=== PATIENT | male | born 1930 | race Caucasian/White ===

== ENCOUNTER 2016-09-02 12:20 | Inpatient (IN) | payer MEDICARE ==
[2016-09-02] MEDS: Furosemide 40 MG TAB PO SCH (14:49)
[2016-09-02 15:17] LABS: Anion Gap 14 mmol/L (10-20); BUN (Urea Nitrogen) 21 mg/dL (8.4-25.7); Calc. Creatinine Clearance 46 mL/min (70-130); Calcium 8.7 mg/dL (7.8-10.44); Carbon Dioxide 22 mmol/L (23-31); Chloride 105 mmol/L (98-107); Estimated GFR-MDRD 48; Glucose 127 mg/dL (83-110); Potassium 4.4 mmol/L (3.5-5.1); Sodium 137 mmol/L (136-145)
[2016-09-02 15:27] LABS: #Basophils 0.1 thou/uL (0.0-0.2); #Eosinphils 0.2 thou/uL (0.0-0.7); #Lymphocytes 2.3 thou/uL (1.20-3.40); #Monocytes 1.5 thou/uL (0.11-0.59); #Neutrophils 14.5 thou/uL (1.40-6.50); %Basophils 0.5 % (0.0-1.0); %Lymphocytes 12.3 % (21.0-51.0); %Monocytes 7.9 % (0.0-10.0); %Neutrophils 78.3 % (42.0-75.0); Hemoglobin 10.3 g/dL (14.0-18.0); Mean Corpuscular HGB CONC 31.5 g/dL (32.0-36.0); Mean Platelet Volume 8.6 fL (7.4-10.4); Platelet Count 532 thou/uL (130-400); RBC Distribution Width 13.4 % (11.5-14.5); Red Blood Cell (RBC) Count 3.23 mill/uL (4.70-6.10); White Blood Cell (WBC) Count 18.5 thou/uL (4.8-10.8)
[2016-09-02] MEDS: Warfarin Sodium 2 MG TAB PO SCH (17:56)
[2016-09-02] MEDS: Carvedilol 25 MG TAB PO SCH (20:15)
[2016-09-02] MEDS: Potassium Chloride 20 MEQ TAB PO SCH (20:15)
[2016-09-02] MEDS: Magnesium Oxide 400 MG TAB PO SCH (20:15)
[2016-09-02] MEDS: Terazosin HCl 1 MG CAP PO SCH (20:15)
[2016-09-02] MEDS: Atorvastatin Calcium 10 MG TAB PO SCH (20:15)
[2016-09-02] MEDS: Famotidine 20 MG TAB PO SCH (20:15)
[2016-09-02] MEDS: Timolol 0.5% Ophth Soln 5 ml Bottle EA EYE SCH (20:16)
[2016-09-02] MEDS: Latanoprost 0.005% Ophth Soln 2.5 ml Bottle EA EYE SCH (20:17)
[2016-09-02] MEDS: Levemir Flexpen 100 UNITS/ML PEN SC SCH (20:18)
[2016-09-02] MEDS: Brimonidine Tartrate 0.2% Ophth Soln 5 ml Bottle EA EYE SCH (20:18)
[2016-09-03] MEDS: Glimepiride 2 MG TAB PO SCH (08:50)
[2016-09-03] MEDS: Carvedilol 25 MG TAB PO SCH ×2 (08:56→20:33)
[2016-09-03] MEDS: Potassium Chloride 20 MEQ TAB PO SCH ×2 (08:56→20:33)
[2016-09-03] MEDS: Famotidine 20 MG TAB PO SCH ×2 (08:56→20:33)
[2016-09-03] MEDS: Aspirin 81 mg Enteric Coated Tablet PO SCH (08:56)
[2016-09-03] MEDS: Magnesium Oxide 400 MG TAB PO SCH ×2 (08:56→20:33)
[2016-09-03] MEDS: Furosemide 40 MG TAB PO SCH ×2 (08:57→14:49)
[2016-09-03] MEDS: Pantoprazole 40 MG GRANULES PACKET PO SCH (08:57)
[2016-09-03] MEDS: Timolol 0.5% Ophth Soln 5 ml Bottle EA EYE SCH ×2 (08:58→20:36)
[2016-09-03] MEDS: Saccharomyces boulardii 250 MG CAP PO SCH (08:58)
[2016-09-03] MEDS: Brimonidine Tartrate 0.2% Ophth Soln 5 ml Bottle EA EYE SCH ×2 (08:58→20:37)
[2016-09-03] MEDS ORDERED: FLU VACC QS2016-17 36MOS UP/PF 0.5 ML SYRINGE IM ONE (09:00)
[2016-09-03] MEDS: AcetaZOLAMIDE 250 MG TAB PO SCH (09:09)
[2016-09-03] MEDS: HYDROcodone/Acetaminophen 5/325 mg Tablet PO PRN ×2 (10:00→20:33)
--- NOTE | 2016-09-03 12:22 | HP ---
DATE OF ADMISSION: 09/02/2016 DATE OF EXAMINATION: 09/03/2016 CHIEF COMPLAINT: Appendicitis, status post appendectomy, here for physical therapy. HISTORY OF PRESENT ILLNESS: This is a very pleasant 85-year-old male who I know very well and have been taking care of him for quite sometime, presented to the [facility] Emergency Room after having sudden episode of weakness and fatigue, and unable to get out of the c hair. Workup showed appendicitis and he underwent appendectomy. He also was on multiple antibiotic s for a while. He has improved sufficiently. Did not need any acute care, but he is significantly weak and his is pretty debilitated as well, and so has been sent here for therapy. Currently, he is sleeping soundly. Denies any complaints. His is in the room. No fever or chills. He i s tolerating his diet. He is on aspiration precautions. PAST MEDICAL HISTORY: 1. Diabetes mellitus type 2. 2. Paroxysmal atrial fibrillation. 3. Coronary artery disease. 4. Chronic kidney disease stage 3. 5. History of deep venous thrombosis, on warfarin. 6. Chronic anemia. PAST SURGICAL HISTORY: 1. Cholecystectomy. 2. EGD. 3. Colonoscopy. 4. Recent appendectomy. CURRENT MEDICATIONS: Reviewed and currently, he is on Levemir 20 units subcutaneous daily, potassiu m 40 mEq b.i.d., magnesium oxide 400 mg b.i.d., hydrocodone 1 tablet q.6 h. p.r.n., timolol 1 drop e ach eye b.i.d., Alphagan 0.2% 1 drop each eye b.i.d., acetazolamide 125 mg daily, Amaryl 1 mg daily, carvedilol 25 mg b.i.d., aspirin 81 mg daily, simvastatin 20 mg daily, Zantac 150 b.i.d., Lasix 40 mg b.i.d., warfarin 4 mg daily, and terazosin 1 mg daily. ALLERGIES: No known drug allergies. FAMILY HISTORY: Noncontributory to current admission. PSYCHOSOCIAL HISTORY: No history of tobacco, alcohol or IV drug abuse. He is legally blind. He li ves with his and his son. He is ambulatory with the help of a walker. REVIEW OF SYSTEMS: CARDIOVASCULAR: Denies any chest pain, shortness of breath, palpitations, paroxysmal nocturnal dysp yolande, orthopnea, or pedal edema. RESPIRATORY: Denies any chronic cough, expectoration, or pleuritic-type chest pain. GASTROINTESTINAL: Denies any nausea, vomiting, diarrhea, constipation, hematemesis, melena, hematoc hezia. GENITOURINARY: Denies any frequency, urgency, dysuria or hematuria. 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 His states that he has no recollection of him having surgery , but he responds to me appropriately to simple questions. PHYSICAL EXAMINATION: GENERAL: An 85-year-old male resting comfortably in no acute distress. VITAL SIGNS: He is afebrile. Heart rate is 80, blood pressure is 120/58, respiratory rate is 18, o xygen saturation is 95%. HEENT: Normocephalic, atraumatic. NECK: No JVD, thyromegaly, cervical adenopathy, or throat exudates. CARDIOVASCULAR: S1 and S2+. RESPIRATORY: Normal vesicular breath sounds. ABDOMEN: Soft, nontender. Bowel sounds heard in all quadrants. EXTREMITIES: Without cyanosis or clubbing. Trace edema. CENTRAL NERVOUS SYSTEM: Generalized weakness. LABORATORY VALUES: His white count is 18.5, H\T\H are 10.3 and 32.7, platelet count 532. Sodium 13 7, potassium 4.4, BUN and creatinine of 21 and 1.41. Blood sugars are 99, 102, 115, and 163. His P T/INR is pending. IMPRESSION: 1. Recent appendicitis, status post appendectomy. 2. Coronary artery disease. 3. Diabetes mellitus type 2. 4. Hypertension. 5. Dyslipidemia. 6. Paroxysmal atrial fibrillation. 7. History of deep venous thrombosis. 8. Chronic anemia. 9. Legal blindness. 10. Chronic kidney disease stage 2-3. PLAN: 1. Continue current medications. 2. Monitor white blood count. 3. Nutritional support. 4. DVT and stress ulcer prophylaxis. 5. Daily PT/INR. 6. Physical therapy and occupational therapy evaluation and treat. 7. Aspiration precautions and speech therapy evaluation. 8. Discussed with and patient in detail and all questions answered.
[2016-09-03] MEDS: Nystatin Cream 30 GM TUBE TOP SCH ×2 (15:14→20:35)
[2016-09-03] MEDS: Warfarin Sodium 2 MG TAB PO SCH (16:43)
[2016-09-03] MEDS: Levemir Flexpen 100 UNITS/ML PEN SC SCH (20:34)
[2016-09-03] MEDS: Terazosin HCl 1 MG CAP PO SCH (20:34)
[2016-09-03] MEDS: Atorvastatin Calcium 10 MG TAB PO SCH (20:34)
[2016-09-03] MEDS: Latanoprost 0.005% Ophth Soln 2.5 ml Bottle EA EYE SCH (20:38)
[2016-09-04 05:47] LABS: #Eosinphils 0.2 thou/uL (0.0-0.7); #Lymphocytes 1.3 thou/uL (1.20-3.40); #Monocytes 0.9 thou/uL (0.11-0.59); #Neutrophils 10.4 thou/uL (1.40-6.50); %Basophils 0.3 % (0.0-1.0); %Eosinophils 1.3 % (0.0-10.0); %Monocytes 6.9 % (0.0-10.0); %Neutrophils 81.5 % (42.0-75.0); Hemoglobin 9.2 g/dL (14.0-18.0); Mean Corpuscular HGB CONC 31.2 g/dL (32.0-36.0); Mean Corpuscular Hemoglobin 31.9 pg (27.0-31.0); Mean Platelet Volume 7.8 fL (7.4-10.4); Platelet Count 488 thou/uL (130-400); RBC Distribution Width 13.5 % (11.5-14.5); Red Blood Cell (RBC) Count 2.89 mill/uL (4.70-6.10); White Blood Cell (WBC) Count 12.8 thou/uL (4.8-10.8)
[2016-09-04 05:54] LABS: INR-International Normal Ratio 1.7; Prothrombin Time 20.1 SEC (12.0-14.7)
[2016-09-04 05:56] LABS: Anion Gap 13 mmol/L (10-20); BUN (Urea Nitrogen) 28 mg/dL (8.4-25.7); Calc. Creatinine Clearance 38 mL/min (70-130); Calcium 8.6 mg/dL (7.8-10.44); Carbon Dioxide 23 mmol/L (23-31); Chloride 110 mmol/L (98-107); Estimated GFR-MDRD 38; Glucose 157 mg/dL (83-110); Potassium 5.3 mmol/L (3.5-5.1); Sodium 141 mmol/L (136-145)
[2016-09-04] MEDS: Glimepiride 2 MG TAB PO SCH (08:39)
[2016-09-04] MEDS: Timolol 0.5% Ophth Soln 5 ml Bottle EA EYE SCH ×2 (08:41→20:45)
[2016-09-04] MEDS: Brimonidine Tartrate 0.2% Ophth Soln 5 ml Bottle EA EYE SCH ×2 (08:41→20:46)
[2016-09-04] MEDS: Carvedilol 25 MG TAB PO SCH ×2 (08:42→20:41)
[2016-09-04] MEDS: Potassium Chloride 20 MEQ TAB PO SCH (08:42)
[2016-09-04] MEDS: AcetaZOLAMIDE 250 MG TAB PO SCH (08:42)
[2016-09-04] MEDS: Aspirin 81 mg Enteric Coated Tablet PO SCH (08:42)
[2016-09-04] MEDS: Saccharomyces boulardii 250 MG CAP PO SCH (08:42)
[2016-09-04] MEDS: Furosemide 40 MG TAB PO SCH ×2 (08:42→14:14)
[2016-09-04] MEDS: Pantoprazole 40 MG GRANULES PACKET PO SCH (08:42)
[2016-09-04] MEDS: Famotidine 20 MG TAB PO SCH ×2 (08:42→20:41)
[2016-09-04] MEDS: Magnesium Oxide 400 MG TAB PO SCH ×2 (08:42→20:41)
[2016-09-04] MEDS: Nystatin Cream 30 GM TUBE TOP SCH (08:43)
--- NOTE | 2016-09-04 15:58 | PRG ---
DATE OF SERVICE: 09/04/2016 SUBJECTIVE: Mr. Harrington is resting comfortably. He is tolerating his diet. He did have one episo de of diarrhea, but C. diff was negative. His white count is down. He denies any fever or chills. He denies any pain. His is in the room. OBJECTIVE: VITAL SIGNS: He is afebrile, heart rate is 77, respirations are 20, oxygen saturation is 95%, blood pressure 139/66. CARDIOVASCULAR: S1, S2 plus. RESPIRATORY: Normal vesicular breath sounds. ABDOMEN: Soft, nontender, bowel sounds heard in all quadrants. EXTREMITIES: Without cyanosis or clubbing. He does have macular rash in the groin area consistent with tinea corporis. LABORATORY DATA: White count is down to 12.8, H\T\H is 9.2 and 29.6. Chemistry shows a sodium 141, potassium is elevated at 5.3, BUN and creatinine 28 and 1.7, blood sugars are 124 121, 156 and 183. IMPRESSION: 1. Status post appendectomy for appendicitis. 2. Improving deconditioning. 3. Diabetes mellitus type 2. 4. Atrial fibrillation. 5. History of DVT. 6. Dyslipidemia. 7. Hyperkalemia. 8. Worsening renal dysfunction. PLAN: 1. Decrease Lasix to 40 mg once a day. 2. Stop potassium. 3. Continue to monitor laboratory values. 4. Nutritional support. 5. DVT and stress ulcer prophylaxis. 6. Decubitus precautions. 7. Physical therapy.
[2016-09-04] MEDS: traMADol HCl 50 MG TAB PO PRN (17:41)
[2016-09-04] MEDS: Warfarin Sodium 2 MG TAB PO SCH (17:41)
[2016-09-04] MEDS: Terazosin HCl 1 MG CAP PO SCH (20:41)
[2016-09-04] MEDS: HYDROcodone/Acetaminophen 5/325 mg Tablet PO PRN (20:41)
[2016-09-04] MEDS: Atorvastatin Calcium 10 MG TAB PO SCH (20:41)
[2016-09-04] MEDS: Ketoconazole 2% Cream 15 gm Tube TOP SCH (20:42)
[2016-09-04] MEDS: Latanoprost 0.005% Ophth Soln 2.5 ml Bottle EA EYE SCH (20:45)
[2016-09-04] MEDS: Levemir Flexpen 100 UNITS/ML PEN SC SCH (20:47)
[2016-09-05 05:32] LABS: #Basophils 0.1 thou/uL (0.0-0.2); #Eosinphils 0.3 thou/uL (0.0-0.7); #Lymphocytes 1.9 thou/uL (1.20-3.40); #Monocytes 1.2 thou/uL (0.11-0.59); #Neutrophils 8.6 thou/uL (1.40-6.50); %Basophils 0.5 % (0.0-1.0); %Eosinophils 2.3 % (0.0-10.0); %Lymphocytes 15.8 % (21.0-51.0); %Monocytes 10.2 % (0.0-10.0); %Neutrophils 71.3 % (42.0-75.0); Hemoglobin 8.8 g/dL (14.0-18.0); Mean Corpuscular HGB CONC 32.3 g/dL (32.0-36.0); Mean Corpuscular Hemoglobin 32.8 pg (27.0-31.0); Mean Platelet Volume 8.1 fL (7.4-10.4); Platelet Count 493 thou/uL (130-400); RBC Distribution Width 13.2 % (11.5-14.5); Red Blood Cell (RBC) Count 2.68 mill/uL (4.70-6.10); White Blood Cell (WBC) Count 12.1 thou/uL (4.8-10.8)
[2016-09-05 05:41] LABS: Anion Gap 14 mmol/L (10-20); BUN (Urea Nitrogen) 26 mg/dL (8.4-25.7); Calc. Creatinine Clearance 43 mL/min (70-130); Calcium 8.4 mg/dL (7.8-10.44); Carbon Dioxide 22 mmol/L (23-31); Chloride 111 mmol/L (98-107); Estimated GFR-MDRD 44; Glucose 137 mg/dL (83-110); Potassium 4.7 mmol/L (3.5-5.1); Sodium 142 mmol/L (136-145)
[2016-09-05] MEDS: Glimepiride 2 MG TAB PO SCH (08:29)
[2016-09-05] MEDS: Furosemide 40 MG TAB PO SCH (08:29)
[2016-09-05] MEDS: Carvedilol 25 MG TAB PO SCH ×2 (08:30→21:34)
[2016-09-05] MEDS: Aspirin 81 mg Enteric Coated Tablet PO SCH (08:30)
[2016-09-05] MEDS: AcetaZOLAMIDE 250 MG TAB PO SCH (08:30)
[2016-09-05] MEDS: Famotidine 20 MG TAB PO SCH ×2 (08:30→21:34)
[2016-09-05] MEDS: Pantoprazole 40 MG GRANULES PACKET PO SCH (08:31)
[2016-09-05] MEDS: Ketoconazole 2% Cream 15 gm Tube TOP SCH ×2 (08:31→21:34)
[2016-09-05] MEDS: Magnesium Oxide 400 MG TAB PO SCH ×2 (08:31→21:34)
[2016-09-05] MEDS: Saccharomyces boulardii 250 MG CAP PO SCH (08:31)
[2016-09-05] MEDS: Timolol 0.5% Ophth Soln 5 ml Bottle EA EYE SCH ×2 (09:38→21:54)
[2016-09-05] MEDS: Brimonidine Tartrate 0.2% Ophth Soln 5 ml Bottle EA EYE SCH ×2 (09:38→21:33)
[2016-09-05 12:09] VITALS: BMI 27.3
--- NOTE | 2016-09-05 13:29 | PRG ---
DATE OF SERVICE: 09/05/2016 SUBJECTIVE: Mr. Harrington is doing well. He denies any complaints, resting comfortably, tolerating his therapy. He apparently walked close to 40 feet today. I spoke with speech therapy, they are up grading him to thin liquids. No other concerns or questions. OBJECTIVE: VITAL SIGNS: He is afebrile, heart rate is 76, respirations are 20, oxygen saturation 95%, blood pr essure 133/73. CARDIOVASCULAR: S1, S2 plus. RESPIRATORY: Normal vesicular breath sounds. ABDOMEN: Soft, nontender, bowel sounds heard in all quadrants. EXTREMITIES: Without cyanosis or clubbing. LABORATORY VALUES: White count is down to 12.1, H\T\H is 8.8 and 27.1, sodium 142, potassium 4.7, B UN and creatinine 26 and 1.5. Blood sugars are 112, 147, 120 and 155. His INR is pending. IMPRESSION: 1. Status post appendectomy. 2. Improving deconditioning. 3. Paroxysmal atrial fibrillation. 4. Chronic kidney disease. 5. Resolved hyperkalemia. 6. Diabetes mellitus type 2. 7. Hypertension. 8. Dyslipidemia. PLAN: 1. Continue current medications. 2. Aspiration precautions. 3. DVT and stress ulcer prophylaxis. 4. Decubitus precautions. 5. Recheck PT/INR. 6. Continue physical therapy. 7. Nutritional support. 8. I spoke with Speech Therapy and they recommend a modified barium swallow on an outpatient basis, but I feel that once patient gets stronger he should be pretty much back to his normal self and if he is still having issues swallowing, then we will order the modified barium swallow.
[2016-09-05] MEDS: Warfarin Sodium 2 MG TAB PO SCH (17:44)
[2016-09-05] MEDS: HYDROcodone/Acetaminophen 5/325 mg Tablet PO PRN (18:38)
[2016-09-05] MEDS: Terazosin HCl 1 MG CAP PO SCH (21:37)
[2016-09-05] MEDS: Levemir Flexpen 100 UNITS/ML PEN SC SCH (21:37)
[2016-09-05] MEDS: Latanoprost 0.005% Ophth Soln 2.5 ml Bottle EA EYE SCH (21:37)
[2016-09-05] MEDS: Atorvastatin Calcium 10 MG TAB PO SCH (21:40)
[2016-09-06 05:42] LABS: #Basophils 0.1 thou/uL (0.0-0.2); #Eosinphils 0.2 thou/uL (0.0-0.7); #Lymphocytes 2.3 thou/uL (1.20-3.40); #Monocytes 1.1 thou/uL (0.11-0.59); #Neutrophils 5.5 thou/uL (1.40-6.50); %Basophils 0.8 % (0.0-1.0); %Eosinophils 2.3 % (0.0-10.0); %Lymphocytes 25.1 % (21.0-51.0); %Monocytes 12.2 % (0.0-10.0); %Neutrophils 59.5 % (42.0-75.0); Hemoglobin 8.3 g/dL (14.0-18.0); Mean Corpuscular Hemoglobin 31.3 pg (27.0-31.0); Mean Platelet Volume 7.7 fL (7.4-10.4); Platelet Count 474 thou/uL (130-400); RBC Distribution Width 13.3 % (11.5-14.5); Red Blood Cell (RBC) Count 2.64 mill/uL (4.70-6.10); White Blood Cell (WBC) Count 9.3 thou/uL (4.8-10.8)
[2016-09-06 05:50] LABS: Anion Gap 13 mmol/L (10-20); BUN (Urea Nitrogen) 24 mg/dL (8.4-25.7); Calc. Creatinine Clearance 46 mL/min (70-130); Calcium 8.3 mg/dL (7.8-10.44); Carbon Dioxide 22 mmol/L (23-31); Chloride 109 mmol/L (98-107); Estimated GFR-MDRD 48; Glucose 76 mg/dL (83-110); Potassium 4.3 mmol/L (3.5-5.1); Sodium 140 mmol/L (136-145)
[2016-09-06 06:00] LABS: Prothrombin Time 22.3 SEC (12.0-14.7)
[2016-09-06] MEDS: Furosemide 40 MG TAB PO SCH (08:14)
[2016-09-06] MEDS: Glimepiride 2 MG TAB PO SCH (08:14)
[2016-09-06] MEDS: AcetaZOLAMIDE 250 MG TAB PO SCH (08:14)
[2016-09-06] MEDS: Carvedilol 25 MG TAB PO SCH ×2 (08:15→20:20)
[2016-09-06] MEDS: Aspirin 81 mg Enteric Coated Tablet PO SCH (08:15)
[2016-09-06] MEDS: Famotidine 20 MG TAB PO SCH ×2 (08:15→20:20)
[2016-09-06] MEDS: Brimonidine Tartrate 0.2% Ophth Soln 5 ml Bottle EA EYE SCH ×2 (08:15→20:18)
[2016-09-06] MEDS: Ketoconazole 2% Cream 15 gm Tube TOP SCH ×2 (08:16→20:19)
[2016-09-06] MEDS: Magnesium Oxide 400 MG TAB PO SCH ×2 (08:16→20:21)
[2016-09-06] MEDS: Pantoprazole 40 MG GRANULES PACKET PO SCH (08:16)
[2016-09-06] MEDS: Saccharomyces boulardii 250 MG CAP PO SCH (08:16)
[2016-09-06] MEDS: Timolol 0.5% Ophth Soln 5 ml Bottle EA EYE SCH ×2 (08:16→20:19)
[2016-09-06] MEDS: HYDROcodone/Acetaminophen 5/325 mg Tablet PO PRN (08:17)
[2016-09-06] MEDS: Warfarin Sodium 2 MG TAB PO SCH ×2 (17:44→19:00)
[2016-09-06] MEDS: Latanoprost 0.005% Ophth Soln 2.5 ml Bottle EA EYE SCH (20:17)
[2016-09-06] MEDS: Levemir Flexpen 100 UNITS/ML PEN SC SCH (20:21)
[2016-09-06] MEDS: Atorvastatin Calcium 10 MG TAB PO SCH (20:21)
[2016-09-06] MEDS: Terazosin HCl 1 MG CAP PO SCH (20:22)
[2016-09-07 05:46] LABS: #Basophils 0.1 thou/uL (0.0-0.2); #Eosinphils 0.2 thou/uL (0.0-0.7); #Lymphocytes 2.5 thou/uL (1.20-3.40); #Neutrophils 4.8 thou/uL (1.40-6.50); %Eosinophils 2.3 % (0.0-10.0); %Lymphocytes 28.8 % (21.0-51.0); %Neutrophils 55.9 % (42.0-75.0); Hemoglobin 8.7 g/dL (14.0-18.0); Mean Corpuscular HGB CONC 33.1 g/dL (32.0-36.0); Mean Corpuscular Hemoglobin 32.8 pg (27.0-31.0); Mean Corpuscular Volume 99.2 fl (80.0-94.0); Mean Platelet Volume 7.8 fL (7.4-10.4); Platelet Count 481 thou/uL (130-400); RBC Distribution Width 12.7 % (11.5-14.5); Red Blood Cell (RBC) Count 2.65 mill/uL (4.70-6.10); White Blood Cell (WBC) Count 8.5 thou/uL (4.8-10.8)
[2016-09-07 05:56] LABS: Anion Gap 12 mmol/L (10-20); BUN (Urea Nitrogen) 22 mg/dL (8.4-25.7); Calc. Creatinine Clearance 46 mL/min (70-130); Calcium 8.2 mg/dL (7.8-10.44); Carbon Dioxide 23 mmol/L (23-31); Chloride 105 mmol/L (98-107); Estimated GFR-MDRD 48; Glucose 93 mg/dL (83-110); INR-International Normal Ratio 2.2; Potassium 4.4 mmol/L (3.5-5.1); Prothrombin Time 24.2 SEC (12.0-14.7); Sodium 136 mmol/L (136-145)
[2016-09-07] MEDS: Glimepiride 2 MG TAB PO SCH (07:45)
[2016-09-07] MEDS: Furosemide 40 MG TAB PO SCH (07:45)
[2016-09-07] MEDS: Ketoconazole 2% Cream 15 gm Tube TOP SCH ×2 (09:46→21:12)
[2016-09-07] MEDS: Magnesium Oxide 400 MG TAB PO SCH ×2 (09:49→21:13)
[2016-09-07] MEDS: AcetaZOLAMIDE 250 MG TAB PO SCH (09:49)
[2016-09-07] MEDS: Saccharomyces boulardii 250 MG CAP PO SCH (09:50)
[2016-09-07] MEDS: Pantoprazole 40 MG GRANULES PACKET PO SCH (09:50)
[2016-09-07] MEDS: Aspirin 81 mg Enteric Coated Tablet PO SCH (09:50)
[2016-09-07] MEDS: Brimonidine Tartrate 0.2% Ophth Soln 5 ml Bottle EA EYE SCH ×2 (09:50→21:14)
[2016-09-07] MEDS: Carvedilol 25 MG TAB PO SCH ×2 (09:50→21:12)
[2016-09-07] MEDS: Timolol 0.5% Ophth Soln 5 ml Bottle EA EYE SCH ×2 (09:51→21:15)
[2016-09-07] MEDS: Famotidine 20 MG TAB PO SCH ×2 (09:58→21:12)
--- NOTE | 2016-09-07 12:49 | PRG ---
SUBJECTIVE: 09/07/2016 SUBJECTIVE: Mr. Harrington is doing well. Denies any complaints, resting comfortably and tolerating his medications. OBJECTIVE: VITAL SIGNS: He is afebrile. Heart rate is 66, respirations 18 and blood pressure is 121/73. CARDIOVASCULAR SYSTEM: S1 and S2 plus. RESPIRATORY SYSTEM: Normal vesicular breath sounds. ABDOMEN: Soft and nontender. Bowel sounds are heard in all quadrants. EXTREMITIES: Without cyanosis or clubbing. Peripheral pulses are palpable. CENTRAL NERVOUS SYSTEM: Grossly nonfocal. EXTREMITIES: Did show DJD in both his knees, worse on the left. LABORATORY VALUES: White count is 8.5, H\T\H is 8.7 and 26.3. Sodium 136, potassium 4.4, BUN and c reatinine 21 and 1.39. Blood sugars are 69, 89 and 95. IMPRESSION: 1. Status post appendectomy. 2. Resolved leukocytosis. 3. Coronary artery disease. 4. Paroxysmal atrial fibrillation. 5. Degenerative joint disease. 6. Improving deconditioning. PLAN: 1. Tylenol 650 mg q.6 hour p.r.n. for his knee pain. 2. Continue physical therapy. 3. Nutritional support. 4. Aspiration precautions. 5. Deep venous thrombosis and stress ulcer prophylaxis. 6. Monitor INR, it is up to 2.2 and stable.
[2016-09-07] MEDS: traMADol HCl 50 MG TAB PO PRN (13:00)
[2016-09-07] MEDS: Warfarin Sodium 1 MG TAB PO SCH (17:25)
[2016-09-07] MEDS: Atorvastatin Calcium 10 MG TAB PO SCH (21:11)
[2016-09-07] MEDS: Levemir Flexpen 100 UNITS/ML PEN SC SCH (21:12)
[2016-09-07] MEDS: HYDROcodone/Acetaminophen 5/325 mg Tablet PO PRN (21:13)
[2016-09-07] MEDS: Terazosin HCl 1 MG CAP PO SCH (21:13)
[2016-09-07] MEDS: Latanoprost 0.005% Ophth Soln 2.5 ml Bottle EA EYE SCH (21:14)
[2016-09-08 06:09] LABS: INR-International Normal Ratio 2.1; Prothrombin Time 23.1 SEC (12.0-14.7)
[2016-09-08] MEDS: Furosemide 40 MG TAB PO SCH (08:00)
[2016-09-08] MEDS: Glimepiride 2 MG TAB PO SCH (08:00)
[2016-09-08] MEDS: Saccharomyces boulardii 250 MG CAP PO SCH (09:04)
[2016-09-08] MEDS: Famotidine 20 MG TAB PO SCH ×2 (09:04→21:09)
[2016-09-08] MEDS: Pantoprazole 40 MG GRANULES PACKET PO SCH (09:04)
[2016-09-08] MEDS: AcetaZOLAMIDE 250 MG TAB PO SCH (09:04)
[2016-09-08] MEDS: Carvedilol 25 MG TAB PO SCH ×2 (09:05→21:09)
[2016-09-08] MEDS: Magnesium Oxide 400 MG TAB PO SCH ×2 (09:05→21:11)
[2016-09-08] MEDS: Aspirin 81 mg Enteric Coated Tablet PO SCH (09:05)
[2016-09-08] MEDS: traMADol HCl 50 MG TAB PO PRN (09:05)
[2016-09-08] MEDS: Ketoconazole 2% Cream 15 gm Tube TOP SCH ×2 (09:06→21:09)
[2016-09-08] MEDS: Brimonidine Tartrate 0.2% Ophth Soln 5 ml Bottle EA EYE SCH ×2 (09:06→21:09)
[2016-09-08] MEDS: Timolol 0.5% Ophth Soln 5 ml Bottle EA EYE SCH ×2 (09:07→21:12)
--- NOTE | 2016-09-08 14:09 | PRG ---
DATE OF SERVICE: 09/08/2016 SUBJECTIVE: Mr. Harrington is doing well. Denies any complaints. Resting comfortably. He is eating better, getting stronger, still having some issues with bowel and bladder incontinence according to his , he wants to be a full code. OBJECTIVE: VITAL SIGNS: He is afebrile, heart rate is 64, respirations 18, and blood pressure 116/63. CARDIOVASCULAR: S1, S2 plus. RESPIRATORY: Normal vesicular breath sounds. ABDOMEN: Soft, nontender, bowel sounds heard in all quadrants. EXTREMITIES: Without cyanosis or clubbing. LABORATORY VALUES: Blood sugars are 157, 102, 109, 93. IMPRESSION: 1. Status post appendectomy. 2. Improving deconditioning. 3. Paroxysmal atrial fibrillation. 4. Coronary artery disease. 5. Legal blindness. 6. Diabetes mellitus type 2. 7. Hypertension. 8. Dyslipidemia. 9. Deconditioning. PLAN: 1. Continue physical therapy. 2. Nutritional support. 3. A 1800 calorie heart healthy diet. 4. Accu-Cheks with sliding scale coverage. 5. Deep venous thrombosis and stress ulcer prophylaxis. 6. Decubitus precautions. 7. Routine laboratory values.
[2016-09-08] MEDS: Warfarin Sodium 1 MG TAB PO SCH (17:37)
[2016-09-08] MEDS: Atorvastatin Calcium 10 MG TAB PO SCH (21:08)
[2016-09-08] MEDS: Levemir Flexpen 100 UNITS/ML PEN SC SCH (21:10)
[2016-09-08] MEDS: Latanoprost 0.005% Ophth Soln 2.5 ml Bottle EA EYE SCH (21:10)
[2016-09-08] MEDS: Terazosin HCl 1 MG CAP PO SCH (21:11)
[2016-09-08] MEDS: HYDROcodone/Acetaminophen 5/325 mg Tablet PO PRN (21:11)
[2016-09-09 05:57] LABS: INR-International Normal Ratio 2.3; Prothrombin Time 24.9 SEC (12.0-14.7)
[2016-09-09] MEDS: Furosemide 40 MG TAB PO SCH (07:54)
[2016-09-09] MEDS: Glimepiride 2 MG TAB PO SCH (07:54)
[2016-09-09] MEDS: AcetaZOLAMIDE 250 MG TAB PO SCH (07:55)
[2016-09-09] MEDS: Brimonidine Tartrate 0.2% Ophth Soln 5 ml Bottle EA EYE SCH ×2 (07:55→20:47)
[2016-09-09] MEDS: Aspirin 81 mg Enteric Coated Tablet PO SCH (07:55)
[2016-09-09] MEDS: Saccharomyces boulardii 250 MG CAP PO SCH (07:56)
[2016-09-09] MEDS: Magnesium Oxide 400 MG TAB PO SCH ×2 (07:56→20:47)
[2016-09-09] MEDS: Carvedilol 25 MG TAB PO SCH ×2 (07:56→20:47)
[2016-09-09] MEDS: Famotidine 20 MG TAB PO SCH ×2 (07:56→20:47)
[2016-09-09] MEDS: Ketoconazole 2% Cream 15 gm Tube TOP SCH ×2 (07:56→20:48)
[2016-09-09] MEDS: Pantoprazole 40 MG GRANULES PACKET PO SCH (07:56)
[2016-09-09] MEDS: Timolol 0.5% Ophth Soln 5 ml Bottle EA EYE SCH ×2 (07:57→20:44)
[2016-09-09] MEDS: Warfarin Sodium 2 MG TAB PO SCH (17:18)
[2016-09-09] MEDS: Latanoprost 0.005% Ophth Soln 2.5 ml Bottle EA EYE SCH (20:44)
[2016-09-09] MEDS: Terazosin HCl 1 MG CAP PO SCH (20:47)
[2016-09-09] MEDS: Atorvastatin Calcium 10 MG TAB PO SCH (20:47)
[2016-09-09] MEDS: Levemir Flexpen 100 UNITS/ML PEN SC SCH (20:48)
[2016-09-09] MEDS: HYDROcodone/Acetaminophen 5/325 mg Tablet PO PRN (20:49)
[2016-09-10 05:40] LABS: INR-International Normal Ratio 2.2
[2016-09-10] MEDS: Furosemide 40 MG TAB PO SCH (08:38)
[2016-09-10] MEDS: AcetaZOLAMIDE 250 MG TAB PO SCH (08:39)
[2016-09-10] MEDS: Glimepiride 2 MG TAB PO SCH (08:39)
[2016-09-10] MEDS: Brimonidine Tartrate 0.2% Ophth Soln 5 ml Bottle EA EYE SCH ×2 (08:40→21:21)
[2016-09-10] MEDS: Aspirin 81 mg Enteric Coated Tablet PO SCH (08:40)
[2016-09-10] MEDS: Timolol 0.5% Ophth Soln 5 ml Bottle EA EYE SCH ×2 (08:41→21:16)
[2016-09-10] MEDS: Carvedilol 25 MG TAB PO SCH ×2 (08:41→21:21)
[2016-09-10] MEDS: Pantoprazole 40 MG GRANULES PACKET PO SCH (08:41)
[2016-09-10] MEDS: Saccharomyces boulardii 250 MG CAP PO SCH (08:41)
[2016-09-10] MEDS: Ketoconazole 2% Cream 15 gm Tube TOP SCH ×2 (08:41→21:21)
[2016-09-10] MEDS: Famotidine 20 MG TAB PO SCH ×2 (08:41→21:19)
[2016-09-10] MEDS: Magnesium Oxide 400 MG TAB PO SCH ×2 (08:41→21:20)
[2016-09-10] MEDS: HYDROcodone/Acetaminophen 5/325 mg Tablet PO PRN ×2 (08:42→21:22)
--- NOTE | 2016-09-10 15:01 | PRG ---
DATE OF SERVICE: 09/10/2016 SUBJECTIVE: Mr. Harrington is doing the same. Denies any complaints, tolerating his diet. He appare ntly walked twice. Therapy apparently stated that he should be ready to go home on Monday. She is going to get trained on his diaper change. He is still having some incontinence with his bowel a nd bladder. Dietitian apparently gave her a lot of instructions on cooking his food, and Speech The rapy also talked to her. She feels comfortable taking him home. She does have home health and I am going to see if they can do home PT as well as try to increase the home health 8-5 times a week. OBJECTIVE: VITAL SIGNS: He is afebrile, heart rate is 65, respirations are 18, oxygen saturation is 96%, blood pressure is 126/66. CARDIOVASCULAR: S1, S2 plus. RESPIRATORY: Normal vesicular breath sounds. ABDOMEN: Soft, nontender, bowel sounds heard in all quadrants. EXTREMITIES: Without cyanosis or clubbing. INR is 2.2. IMPRESSION: 1. Recent appendectomy. 2. Improving deconditioning. 3. Bowel and bladder incontinence secondary to weakness. 4. Paroxysmal atrial fibrillation. 5. Coronary artery disease. 6. Diabetes mellitus type 2. 7. Dyslipidemia. 8. Hypertension. 9. Chronic kidney disease. 10. Legal blindness. PLAN: 1. Continue physical therapy. 2. Nutritional support. 3. Aspiration precautions. 4. DVT and stress ulcer prophylaxis. 5. Decubitus precautions. 6. Routine laboratory values. 7. Discharge planning.
[2016-09-10] MEDS: Warfarin Sodium 2 MG TAB PO SCH (17:12)
[2016-09-10] MEDS: Latanoprost 0.005% Ophth Soln 2.5 ml Bottle EA EYE SCH (21:18)
[2016-09-10] MEDS: Atorvastatin Calcium 10 MG TAB PO SCH (21:19)
[2016-09-10] MEDS: Terazosin HCl 1 MG CAP PO SCH (21:19)
[2016-09-10] MEDS: Levemir Flexpen 100 UNITS/ML PEN SC SCH (21:20)
[2016-09-11 05:23] LABS: #Basophils 0.1 thou/uL (0.0-0.2); #Eosinphils 0.2 thou/uL (0.0-0.7); #Lymphocytes 2.7 thou/uL (1.20-3.40); #Monocytes 1.1 thou/uL (0.11-0.59); #Neutrophils 5.8 thou/uL (1.40-6.50); %Basophils 1.1 % (0.0-1.0); %Eosinophils 1.7 % (0.0-10.0); %Lymphocytes 27.5 % (21.0-51.0); %Monocytes 11.1 % (0.0-10.0); %Neutrophils 58.6 % (42.0-75.0); Hemoglobin 8.4 g/dL (14.0-18.0); Mean Corpuscular HGB CONC 31.6 g/dL (32.0-36.0); Mean Corpuscular Hemoglobin 31.3 pg (27.0-31.0); Mean Corpuscular Volume 99.1 fl (80.0-94.0); Mean Platelet Volume 7.6 fL (7.4-10.4); Platelet Count 404 thou/uL (130-400); RBC Distribution Width 12.9 % (11.5-14.5); Red Blood Cell (RBC) Count 2.67 mill/uL (4.70-6.10); White Blood Cell (WBC) Count 9.8 thou/uL (4.8-10.8)
[2016-09-11 05:41] LABS: Anion Gap 13 mmol/L (10-20); BUN (Urea Nitrogen) 30 mg/dL (8.4-25.7); Calc. Creatinine Clearance 35 mL/min (70-130); Calcium 8.2 mg/dL (7.8-10.44); Carbon Dioxide 22 mmol/L (23-31); Chloride 105 mmol/L (98-107); Estimated GFR-MDRD 35; Glucose 90 mg/dL (83-110); Potassium 4.4 mmol/L (3.5-5.1); Prothrombin Time 22.3 SEC (12.0-14.7); Sodium 136 mmol/L (136-145)
[2016-09-11] MEDS: Glimepiride 2 MG TAB PO SCH (08:26)
[2016-09-11] MEDS: Furosemide 40 MG TAB PO SCH (08:26)
[2016-09-11] MEDS: AcetaZOLAMIDE 250 MG TAB PO SCH (08:27)
[2016-09-11] MEDS: Aspirin 81 mg Enteric Coated Tablet PO SCH (08:28)
[2016-09-11] MEDS: Carvedilol 25 MG TAB PO SCH ×2 (08:28→21:22)
[2016-09-11] MEDS: Ketoconazole 2% Cream 15 gm Tube TOP SCH ×2 (08:28→21:22)
[2016-09-11] MEDS: Famotidine 20 MG TAB PO SCH ×2 (08:28→21:20)
[2016-09-11] MEDS: Brimonidine Tartrate 0.2% Ophth Soln 5 ml Bottle EA EYE SCH ×2 (08:28→21:18)
[2016-09-11] MEDS: Saccharomyces boulardii 250 MG CAP PO SCH (08:29)
[2016-09-11] MEDS: Pantoprazole 40 MG GRANULES PACKET PO SCH (08:29)
[2016-09-11] MEDS: HYDROcodone/Acetaminophen 5/325 mg Tablet PO PRN ×2 (08:29→21:20)
[2016-09-11] MEDS: Timolol 0.5% Ophth Soln 5 ml Bottle EA EYE SCH ×2 (08:29→21:23)
[2016-09-11] MEDS: Magnesium Oxide 400 MG TAB PO SCH ×2 (08:29→21:20)
[2016-09-11] MEDS: Warfarin Sodium 2 MG TAB PO SCH (17:11)
[2016-09-11] MEDS: Latanoprost 0.005% Ophth Soln 2.5 ml Bottle EA EYE SCH (21:19)
[2016-09-11] MEDS: Atorvastatin Calcium 10 MG TAB PO SCH (21:20)
[2016-09-11] MEDS: Levemir Flexpen 100 UNITS/ML PEN SC SCH (21:21)
[2016-09-11] MEDS: Terazosin HCl 1 MG CAP PO SCH (21:21)
--- NOTE | 2016-09-11 23:24 | PRG ---
DATE OF SERVICE: 09/11/2016 SUBJECTIVE: Mr. Harrington is doing the same, resting comfortably, eating better, still having some i ssues with bowel and bladder incontinence, is going to be trained tomorrow. She states that sh e is going to be able to take care of him. I am going to check with therapy as well. He has home h ealth. He really does not have any other family support other than his . There is a granddaugh hodan, who comes around pretty frequently, but she is the sole caregiver for her father. OBJECTIVE: VITAL SIGNS: He is afebrile, heart rate is 70, respiratory rate 18, oxygen saturation is 96%, and b lood pressure 107/58. CARDIOVASCULAR: S1, S2 plus. RESPIRATORY: Normal vesicular breath sounds. ABDOMEN: Soft and nontender. Bowel sounds heard in all quadrants. EXTREMITIES: Without cyanosis or clubbing. LABORATORY VALUES: White count is 9.8, hemoglobin and hematocrit is 8.4 and 26.5. Sodium 136, pota ssium 4.4, BUN and creatinine 30 and 1.84. Blood sugars are 75, 95 and 68. INR is 2.0. IMPRESSION: 1. Improving deconditioning, status post appendectomy. 2. Aspiration precautions for dysphagia. 3. Paroxysmal atrial fibrillation. 4. Coronary artery disease. 5. Hypertension. 6. Chronic kidney disease. 7. Legal blindness. 8. Bowel and bladder incontinence. PLAN: 1. Continue physical therapy. 2. Aspiration precautions. 3. Nutritional support. 4. Accu-Cheks with sliding scale coverage. 5. DVT and stress ulcer prophylaxis. 6. Decubitus precautions. 7. Routine laboratory values. 8. Discharge planning.
[2016-09-12 05:29] LABS: INR-International Normal Ratio 2.2; Prothrombin Time 24.2 SEC (12.0-14.7)
[2016-09-12] MEDS: Furosemide 40 MG TAB PO SCH (08:00)
[2016-09-12] MEDS: Glimepiride 2 MG TAB PO SCH (08:00)
[2016-09-12] MEDS: AcetaZOLAMIDE 250 MG TAB PO SCH (09:07)
[2016-09-12] MEDS: Aspirin 81 mg Enteric Coated Tablet PO SCH (09:07)
[2016-09-12] MEDS: Carvedilol 25 MG TAB PO SCH ×2 (09:08→21:00)
[2016-09-12] MEDS: Pantoprazole 40 MG GRANULES PACKET PO SCH (09:08)
[2016-09-12] MEDS: Ketoconazole 2% Cream 15 gm Tube TOP SCH ×2 (09:08→21:00)
[2016-09-12] MEDS: Magnesium Oxide 400 MG TAB PO SCH ×2 (09:08→21:01)
[2016-09-12] MEDS: Saccharomyces boulardii 250 MG CAP PO SCH (09:08)
[2016-09-12] MEDS: Brimonidine Tartrate 0.2% Ophth Soln 5 ml Bottle EA EYE SCH ×2 (09:09→20:59)
[2016-09-12] MEDS: Timolol 0.5% Ophth Soln 5 ml Bottle EA EYE SCH ×2 (09:11→21:03)
[2016-09-12] MEDS: Famotidine 20 MG TAB PO SCH ×2 (09:12→21:00)
[2016-09-12] MEDS: traMADol HCl 50 MG TAB PO PRN (09:15)
--- NOTE | 2016-09-12 14:39 | PRG ---
DATE OF SERVICE: 09/12/2016. SUBJECTIVE: Mr. Harrington is doing the same. He denies any complaints except he felt a little bit o f stiffness in his knee. I spoke with therapy and apparently he did not do as well today as he did last week. They are going to work with him and see if he is ready to go home Monday like they to ld the last week or whether he needs state couple more days. I spoke with Mrs. Harrington and sh e is agreeable if he needs to stay a few more days. OBJECTIVE: VITAL SIGNS: He is afebrile, heart rate is 72, respirations are 18, oxygen saturation is 96%, blood pressure is 110/60. CARDIOVASCULAR: S1, S2 plus. RESPIRATORY: Normal vesicular breath sounds. ABDOMEN: Soft, nontender, bowel sounds heard in all quadrants. EXTREMITIES: Without cyanosis or clubbing. IMPRESSION: 1. Slowly improving deconditioning, status post recent appendectomy. 2. Paroxysmal atrial fibrillation. 3. Coronary artery disease. 4. Chronic kidney disease. 5. Hypertension. 6. Dyslipidemia. 7. Diabetes mellitus type 2. PLAN: 1. Continue current medications. 2. Nutritional support. 3. Heart healthy ADA diet. 4. Accu-Cheks with sliding scale coverage. 5. Deep venous thrombosis and stress ulcer prophylaxes. 6. Decubitus precautions and physical therapy. He already has initial residential health. Blood sug ars are 79, 99, 92, 98 and 200.
[2016-09-12] MEDS: Warfarin Sodium 2 MG TAB PO SCH (17:55)
[2016-09-12] MEDS: Atorvastatin Calcium 10 MG TAB PO SCH (20:59)
[2016-09-12] MEDS: Latanoprost 0.005% Ophth Soln 2.5 ml Bottle EA EYE SCH (21:00)
[2016-09-12] MEDS: Terazosin HCl 1 MG CAP PO SCH (21:01)
[2016-09-12] MEDS: Levemir Flexpen 100 UNITS/ML PEN SC SCH (21:01)
[2016-09-12] MEDS: HYDROcodone/Acetaminophen 5/325 mg Tablet PO PRN (21:04)
[2016-09-13 05:31] LABS: INR-International Normal Ratio 2.7; Prothrombin Time 28.2 SEC (12.0-14.7)
[2016-09-13] MEDS: AcetaZOLAMIDE 250 MG TAB PO SCH (08:14)
[2016-09-13] MEDS: Aspirin 81 mg Enteric Coated Tablet PO SCH (08:14)
[2016-09-13] MEDS: Magnesium Oxide 400 MG TAB PO SCH ×2 (08:14→21:11)
[2016-09-13] MEDS: Carvedilol 25 MG TAB PO SCH ×2 (08:15→21:09)
[2016-09-13] MEDS: Pantoprazole 40 MG GRANULES PACKET PO SCH (08:15)
[2016-09-13] MEDS: Saccharomyces boulardii 250 MG CAP PO SCH (08:15)
[2016-09-13] MEDS: Famotidine 20 MG TAB PO SCH ×2 (08:15→21:09)
[2016-09-13] MEDS: Furosemide 40 MG TAB PO SCH (08:16)
[2016-09-13] MEDS: Glimepiride 2 MG TAB PO SCH (08:16)
[2016-09-13] MEDS: Timolol 0.5% Ophth Soln 5 ml Bottle EA EYE SCH ×2 (08:17→21:28)
[2016-09-13] MEDS: Brimonidine Tartrate 0.2% Ophth Soln 5 ml Bottle EA EYE SCH ×2 (08:19→21:09)
[2016-09-13] MEDS: Ketoconazole 2% Cream 15 gm Tube TOP SCH ×2 (08:19→21:10)
[2016-09-13] MEDS ORDERED: Bisacodyl 10 MG SUPP PR PRN (13:08)
--- NOTE | 2016-09-13 13:38 | PRG ---
DATE OF SERVICE: 09/13/2016 SUBJECTIVE: Mr. Harrington is doing the same. He denies any complaints. He apparently did not do as well with therapy secondary to back pain. I spoke with patient, and therapy. They still want to go home. Therapy feels that he is safe to go home as long as can assist him with his ADLs and they have home health and help if needed. Son and [id number] live right next door. He hitesh arently has not had a bowel movement and we are going to start him on some suppositories. OBJECTIVE: VITAL SIGNS: He is afebrile, heart rate is 66, respirations are 16, blood pressure is 115/56. CARDIOVASCULAR: S1, S2 plus. RESPIRATORY: Normal vesicular breath sounds. ABDOMEN: Soft, nontender, bowel sounds heard in all quadrants. EXTREMITIES: Without cyanosis or clubbing. IMPRESSION: 1. Status post appendectomy. 2. Paroxysmal atrial fibrillation. 3. Hypertension. 4. Dyslipidemia. 5. Chronic kidney disease. 6. Diabetes mellitus. 7. Constipation. 8. Bowel and bladder incontinence. PLAN: 1. Dulcolax suppository q.8 hours p.r.n., try to clean him before he goes home. 2. Physical therapy as tolerated. 3. educated and trained on doing his diaper change. 4. Case management consult on board to inform [facility] home health to see if they can send there and aid every day and then have a nurse checking at him closely for the first couple of weeks as wel l as home PT and OT. Monitor blood sugars. Poor long-term prognosis. I have discussed with his da [id number] and made them aware that if the is not able to handle it, then he may need to go to the halfway.
[2016-09-13] MEDS: traMADol HCl 50 MG TAB PO PRN (13:41)
[2016-09-13] MEDS: Warfarin Sodium 2 MG TAB PO SCH (17:31)
[2016-09-13] MEDS: Atorvastatin Calcium 10 MG TAB PO SCH (21:08)
[2016-09-13] MEDS: Latanoprost 0.005% Ophth Soln 2.5 ml Bottle EA EYE SCH (21:10)
[2016-09-13] MEDS: Levemir Flexpen 100 UNITS/ML PEN SC SCH (21:11)
[2016-09-13] MEDS: Terazosin HCl 1 MG CAP PO SCH (21:12)
[2016-09-14 00:40] LABS: #Basophils 0.1 thou/uL (0.0-0.2); #Eosinphils 0.1 thou/uL (0.0-0.7); #Lymphocytes 2.1 thou/uL (1.20-3.40); #Monocytes 1.2 thou/uL (0.11-0.59); #Neutrophils 8.6 thou/uL (1.40-6.50); %Basophils 0.6 % (0.0-1.0); %Eosinophils 0.7 % (0.0-10.0); %Lymphocytes 17.4 % (21.0-51.0); %Neutrophils 71.3 % (42.0-75.0); Hemoglobin 8.8 g/dL (14.0-18.0); Mean Corpuscular HGB CONC 33.1 g/dL (32.0-36.0); Mean Corpuscular Hemoglobin 32.5 pg (27.0-31.0); Mean Corpuscular Volume 98.2 fl (80.0-94.0); Mean Platelet Volume 8.2 fL (7.4-10.4); Platelet Count 349 thou/uL (130-400); RBC Distribution Width 12.9 % (11.5-14.5); Red Blood Cell (RBC) Count 2.69 mill/uL (4.70-6.10)
[2016-09-14 01:02] LABS: Bilirubin Negative (Negative); Blood, Urine Negative (Negative); Clarity Clear (Clear); Glucose, Urine (Dipstick) Negative (Negative); Leukocyte Negative (Negative); Nitrite Negative (Negative); Protein, Urine (Dipstick) Negative (Neg-Trace); Specific Gravity, Urine 1.015 (1.005-1.030); Urobilinogen 0.2 mg/dL (0.2-1.0)
[2016-09-14 01:02] LABS: Anion Gap 16 mmol/L (10-20); BUN (Urea Nitrogen) 34 mg/dL (8.4-25.7); Calc. Creatinine Clearance 32 mL/min (70-130); Calcium 8.5 mg/dL (7.8-10.44); Carbon Dioxide 23 mmol/L (23-31); Chloride 104 mmol/L (98-107); Estimated GFR-MDRD 32; Glucose 144 mg/dL (83-110); Potassium 4.6 mmol/L (3.5-5.1); Sodium 138 mmol/L (136-145)
[2016-09-14 05:21] LABS: INR-International Normal Ratio 2.7; Prothrombin Time 27.9 SEC (12.0-14.7)
[2016-09-14] MEDS: Glimepiride 2 MG TAB PO SCH (07:31)
[2016-09-14] MEDS: Furosemide 40 MG TAB PO SCH (07:32)
[2016-09-14] MEDS: Magnesium Oxide 400 MG TAB PO SCH ×2 (08:47→21:50)
[2016-09-14] MEDS: Carvedilol 25 MG TAB PO SCH ×2 (08:47→21:50)
[2016-09-14] MEDS: Pantoprazole 40 MG GRANULES PACKET PO SCH (08:47)
[2016-09-14] MEDS: Famotidine 20 MG TAB PO SCH ×2 (08:48→21:50)
[2016-09-14] MEDS: Saccharomyces boulardii 250 MG CAP PO SCH (08:48)
[2016-09-14] MEDS: Aspirin 81 mg Enteric Coated Tablet PO SCH (08:48)
[2016-09-14] MEDS: AcetaZOLAMIDE 250 MG TAB PO SCH (08:50)
[2016-09-14] MEDS: Brimonidine Tartrate 0.2% Ophth Soln 5 ml Bottle EA EYE SCH ×2 (08:51→21:50)
[2016-09-14] MEDS: Ketoconazole 2% Cream 15 gm Tube TOP SCH ×2 (08:52→21:50)
[2016-09-14] MEDS: Timolol 0.5% Ophth Soln 5 ml Bottle EA EYE SCH ×2 (08:53→21:50)
[2016-09-14] MEDS: Warfarin Sodium 2 MG TAB PO SCH (17:41)
--- NOTE | 2016-09-14 18:26 | PRG ---
DATE OF SERVICE: 09/14/2016 Mr. Harrington had an episode of confusion and agitation yesterday. I ordered some routine laboratory values on him and when they try to do urine culture, they notice that he had close to 900 mL of uri ne retained, after that he rested comfortably. This morning he is pretty much out of it. He has no t been participating as well with therapy. His has finally gone home to get some rest. His la boratory values from this morning are pretty much at his baseline. PHYSICAL EXAMINATION: VITAL SIGNS: He is afebrile, heart rate is 86, respirations are 20, blood pressure 127/71 and then it was as low as 75/46. CARDIOVASCULAR: S1, S2 plus. RESPIRATORY: Normal vesicular breath sounds. ABDOMEN: Soft, nontender, bowel sounds heard in all quadrants. EXTREMITIES: Without cyanosis or clubbing. IMPRESSION: 1. Urinary retention, acute. 2. Paroxysmal atrial fibrillation. 3. Recent appendectomy. 4. Deconditioning. 5. Diabetes mellitus type 2. 6. Hypertension. 7. Dyslipidemia. 8. Chronic kidney disease. 9. Dysphagia. PLAN: 1. Recheck blood pressure and if necessary we will start him on some IV fluids. 2. Hold discharge. 3. Await urine culture. 4. Bladder scan q.4h. and if his urine volume is more than 400 mL, I will have them place and leave the Casarez catheter in. 5. Recheck laboratories in the morning. 6. Left a message for his family, he may need to go to a correction. 7. Recheck routine laboratory values. 8. Accu-Cheks. 9. Aspiration precautions. Discussed with nursing.
[2016-09-14] MEDS: Finasteride 5 MG TAB PO SCH (21:50)
[2016-09-14] MEDS: Terazosin HCl 1 MG CAP PO SCH (21:50)
[2016-09-14] MEDS: Latanoprost 0.005% Ophth Soln 2.5 ml Bottle EA EYE SCH (21:50)
[2016-09-14] MEDS: Levemir Flexpen 100 UNITS/ML PEN SC SCH (21:50)
[2016-09-14] MEDS: Atorvastatin Calcium 10 MG TAB PO SCH (21:50)
[2016-09-15 06:47] LABS: #Basophils 0.1 thou/uL (0.0-0.2); #Eosinphils 0.1 thou/uL (0.0-0.7); #Lymphocytes 2.7 thou/uL (1.20-3.40); #Monocytes 1.1 thou/uL (0.11-0.59); #Neutrophils 5.8 thou/uL (1.40-6.50); %Basophils 0.8 % (0.0-1.0); %Monocytes 10.7 % (0.0-10.0); %Neutrophils 59.5 % (42.0-75.0); Hemoglobin 8.2 g/dL (14.0-18.0); Mean Corpuscular Hemoglobin 31.2 pg (27.0-31.0); Mean Corpuscular Volume 97.5 fl (80.0-94.0); Mean Platelet Volume 8.1 fL (7.4-10.4); Platelet Count 277 thou/uL (130-400); RBC Distribution Width 12.7 % (11.5-14.5); Red Blood Cell (RBC) Count 2.62 mill/uL (4.70-6.10); White Blood Cell (WBC) Count 9.8 thou/uL (4.8-10.8)
[2016-09-15 06:53] LABS: Calcium 7.8 mg/dL (7.8-10.44); Chloride 107 mmol/L (98-107); Sodium 140 mmol/L (136-145)
[2016-09-15 06:57] LABS: Prothrombin Time 30.3 SEC (12.0-14.7)
[2016-09-15 07:11] LABS: BUN (Urea Nitrogen) 26 mg/dL (8.4-25.7); Calc. Creatinine Clearance 39 mL/min (70-130); Carbon Dioxide 23 mmol/L (23-31); Estimated GFR-MDRD 40; Glucose 82 mg/dL (83-110)
[2016-09-15 07:29] LABS: Anion Gap 14 mmol/L (10-20)
[2016-09-15] MEDS: Furosemide 40 MG TAB PO SCH (07:30)
[2016-09-15] MEDS: Glimepiride 2 MG TAB PO SCH (08:01)
[2016-09-15] MEDS: Pantoprazole 40 MG GRANULES PACKET PO SCH (08:02)
[2016-09-15] MEDS: AcetaZOLAMIDE 250 MG TAB PO SCH (08:03)
[2016-09-15] MEDS: Aspirin 81 mg Enteric Coated Tablet PO SCH (08:03)
[2016-09-15] MEDS: Magnesium Oxide 400 MG TAB PO SCH ×2 (08:03→21:53)
[2016-09-15] MEDS: Carvedilol 25 MG TAB PO SCH ×2 (08:03→21:57)
[2016-09-15] MEDS: Brimonidine Tartrate 0.2% Ophth Soln 5 ml Bottle EA EYE SCH ×2 (08:05→21:53)
[2016-09-15] MEDS: Timolol 0.5% Ophth Soln 5 ml Bottle EA EYE SCH ×2 (08:05→21:54)
[2016-09-15] MEDS: Famotidine 20 MG TAB PO SCH ×2 (08:06→21:53)
[2016-09-15] MEDS: Ketoconazole 2% Cream 15 gm Tube TOP SCH ×2 (08:08→21:55)
--- NOTE | 2016-09-15 16:34 | PRG ---
DATE OF SERVICE: 09/15/2016 SUBJECTIVE: Mr. Harrington is a very pleasant 86-year-old white male, patient of Dr. Somers who unfort unately had an appendicitis and had to have an appendectomy. Postoperatively, he was significantly weak and was eventually transferred to [facility] for physical therapy and occupatio nal therapy. The patient has been followed by Dr. Somers since then. The patient has no complaints today, but he is a little bit confused and agitated yesterday. He had urinary retention and we are doing in and out caths on him and not been able to participate very we ll with therapy and hopefully that will get a little bit better today. VITAL SIGNS: Blood pressure 112/54, pulse 75-82, respirations 18-20, O2 saturation 95% to 97%, T-ma x is 97.4. LABORATORY Data: Laboratory values revealed a white count of 9800, which is better than yesterday's 12,000, his hemoglobin is 8.2, hematocrit 25.5, platelet count 277,000. His INR is 3.0, his sodium is 140, potassium 4.0, chloride 107, carbon dioxide 23 with a BUN of 26, creatinine 1.64 and that i s usually little bit better, his last creatinine on 09/11/2016 is 1.8. His sugars have been actuall y very well. PHYSICAL EXAMINATION: GENERAL: This is a well-developed elderly white male, in no apparent distress at this time. HEENT: Reveals normocephalic, nontraumatic cranium. Pupils are equally round and reactive. Nose a nd throat are slightly dry. NECK: Supple, without masses, nodes or bruits. CHEST: Clear to auscultation. No rales, rhonchi or wheezes are heard. HEART: Reveals a regular rate and rhythm without murmurs, gallops or rubs. ABDOMEN: Soft, nontender, without organomegaly, normal bowel sounds are noted. : Deferred. EXTREMITIES: Reveal no clubbing, cyanosis or edema. NEUROLOGIC: The patient is oriented to person, not place or time. IMPRESSION: 1. Confusion, most likely urinary retention, possible urinary tract infection. Labs are much impro minerva over the previous day. 2. Generalized weakness, slowly improving status post recent appendectomy. 3. Paroxysmal atrial fibrillation. 4. History of coronary artery disease. 5. Chronic kidney disease. 6. Hypertension. 7. Hyperlipidemia. 8. Diabetes type 2. PLAN: 1. Continue to follow his Accu-Cheks a.c. and at bedtime. 2. Continue to follow blood pressure closely. 3. Continue to follow the patient for urinary retention. 4. Continue nutritional support. 5. Continue DVT and stress ulcer prophylaxis. 6. Continue physical therapy and occupational therapy. 7. Continue decubitus precautions.
[2016-09-15] MEDS: Warfarin Sodium 2 MG TAB PO SCH (17:00)
[2016-09-15] MEDS: Finasteride 5 MG TAB PO SCH (21:53)
[2016-09-15] MEDS: Atorvastatin Calcium 10 MG TAB PO SCH (21:53)
[2016-09-15] MEDS: Terazosin HCl 1 MG CAP PO SCH (21:53)
[2016-09-15] MEDS: Latanoprost 0.005% Ophth Soln 2.5 ml Bottle EA EYE SCH (21:55)
[2016-09-15] MEDS: Levemir Flexpen 100 UNITS/ML PEN SC SCH (21:56)
--- NOTE | 2016-09-16 07:01 | PRG ---
DATE OF SERVICE: 09/16/2016 HISTORY OF PRESENT ILLNESS: Mr. Harrington is an 86-year-old white male, very pleasant that had some urinary retention and significant confusion. This morning, Mr. Harrington is back to his normal self. He is conversationalizing well. He is orien jesús to person, place and recognizes me from seeing him yesterday. He states he did feel better yest erday and ate better yesterday evening and did some with physical therapy yesterday. He has no comp laints today. VITAL SIGNS: Vital signs today reveal blood pressure 122/53, pulse last night was slow at 38-44. E KG was obtained, but it showed the rate back up to 88. The patient is on carvedilol, we cut his car vedilol from 25 mg b.i.d. to 12.5 mg b.i.d. He does have a history of atrial fibrillation, but he m ay be brought down too much with his beta haja. Soon thereafter after about 15 minutes, his hear t rate did picking supervisor to the 80s and this morning it is back to his normal at 82. PHYSICAL EXAMINATION: GENERAL: This is a well-developed, well-nourished, very pleasant white male in no apparent distress at this time. HEENT: Reveals normocephalic, nontraumatic cranium. Pupils are equally round and reactive. Nose a nd throat slightly dry. NECK: Supple, without mass, nodes or bruits. CHEST: Clear to auscultation. No rales, rhonchi or wheezes are heard. CARDIOVASCULAR: This morning reveals a regular rate and rhythm. No murmurs, gallops or rubs are no jesús. ABDOMEN: Soft, nontender, without organomegaly, normal bowel sounds are noted. No rebound or guard ing is noted. : Deferred. GENITOURINARY: Reveals Casarez catheter in place. His urine still looks somewhat cloudy this morning . EXTREMITIES: No clubbing, cyanosis or edema. NEUROLOGIC: The patient is oriented to person, place and time this morning. IMPRESSION: 1. Confusion, much improved. 2. Urine is cloudy this morning, we will get a UA. 3. The patient has already had a urine culture and sensitivity which is not growing anything. 4. Generalized weakness. 5. Status post recent appendectomy. 6. Paroxysmal atrial fibrillation. 7. History of coronary artery disease. 8. Chronic kidney disease. 9. Hypertension. 10. Hyperlipidemia. 11. Diabetes type 2. PLAN: 1. Continue to follow Accu-Cheks a.c. and at bedtime, which have remained good. 2. Continue to follow blood pressures. 3. Continue Casarez catheterization at this time. 4. Continue nutritional support and encouragement. 5. Continue DVT and stress ulcer prophylaxis. 6. Continue physical therapy and occupational therapy. 7. Continue decubitus precautions. 8. We will also repeat another urinalysis today.
[2016-09-16 07:05] LABS: Prothrombin Time 29.3 SEC (12.0-14.7)
[2016-09-16 07:06] LABS: INR-International Normal Ratio 2.8
[2016-09-16] MEDS: Furosemide 40 MG TAB PO SCH (07:53)
[2016-09-16] MEDS: Glimepiride 2 MG TAB PO SCH (07:53)
[2016-09-16] MEDS: Aspirin 81 mg Enteric Coated Tablet PO SCH (09:20)
[2016-09-16] MEDS: Carvedilol 25 MG TAB PO SCH ×2 (09:20→21:19)
[2016-09-16] MEDS: Saccharomyces boulardii 250 MG CAP PO SCH (09:20)
[2016-09-16] MEDS: Magnesium Oxide 400 MG TAB PO SCH ×2 (09:20→21:20)
[2016-09-16] MEDS: Famotidine 20 MG TAB PO SCH ×2 (09:20→21:20)
[2016-09-16] MEDS: Brimonidine Tartrate 0.2% Ophth Soln 5 ml Bottle EA EYE SCH ×2 (09:21→21:27)
[2016-09-16] MEDS: AcetaZOLAMIDE 250 MG TAB PO SCH (09:21)
[2016-09-16] MEDS: Timolol 0.5% Ophth Soln 5 ml Bottle EA EYE SCH ×2 (09:21→21:24)
[2016-09-16] MEDS: Ketoconazole 2% Cream 15 gm Tube TOP SCH ×2 (09:21→21:23)
[2016-09-16] MEDS: Pantoprazole 40 MG GRANULES PACKET PO SCH (09:21)
[2016-09-16] MEDS: Warfarin Sodium 2 MG TAB PO SCH (17:12)
[2016-09-16] MEDS: Atorvastatin Calcium 10 MG TAB PO SCH (21:20)
[2016-09-16] MEDS: Finasteride 5 MG TAB PO SCH (21:20)
[2016-09-16] MEDS: Terazosin HCl 1 MG CAP PO SCH (21:20)
[2016-09-16] MEDS: Levemir Flexpen 100 UNITS/ML PEN SC SCH (21:20)
[2016-09-16] MEDS: Latanoprost 0.005% Ophth Soln 2.5 ml Bottle EA EYE SCH (21:21)
[2016-09-16] MEDS: HYDROcodone/Acetaminophen 5/325 mg Tablet PO PRN (21:22)
[2016-09-17 06:12] LABS: INR-International Normal Ratio 3.1; Prothrombin Time 31.6 SEC (12.0-14.7)
[2016-09-17] MEDS: Saccharomyces boulardii 250 MG CAP PO SCH (08:36)
[2016-09-17] MEDS: Carvedilol 25 MG TAB PO SCH ×2 (08:36→21:43)
[2016-09-17] MEDS: Glimepiride 2 MG TAB PO SCH (08:37)
[2016-09-17] MEDS: Aspirin 81 mg Enteric Coated Tablet PO SCH (08:37)
[2016-09-17] MEDS: Magnesium Oxide 400 MG TAB PO SCH ×2 (08:37→21:43)
[2016-09-17] MEDS: Furosemide 40 MG TAB PO SCH (08:37)
[2016-09-17] MEDS: Famotidine 20 MG TAB PO SCH ×2 (08:37→21:42)
[2016-09-17] MEDS: AcetaZOLAMIDE 250 MG TAB PO SCH (08:37)
[2016-09-17] MEDS: Ketoconazole 2% Cream 15 gm Tube TOP SCH ×2 (08:38→21:44)
[2016-09-17] MEDS: Pantoprazole 40 MG GRANULES PACKET PO SCH (08:38)
[2016-09-17] MEDS: Timolol 0.5% Ophth Soln 5 ml Bottle EA EYE SCH ×2 (08:40→21:44)
[2016-09-17] MEDS: Brimonidine Tartrate 0.2% Ophth Soln 5 ml Bottle EA EYE SCH ×2 (08:41→21:44)
[2016-09-17] MEDS: Warfarin Sodium 2 MG TAB PO SCH (17:51)
--- NOTE | 2016-09-17 17:59 | PRG ---
DATE OF SERVICE: 09/17/2016 SUBJECTIVE: Mr. Harrington is an 86-year-old white male that was admitted to the hospital by Dr. Jovani martinez. He had significant urinary retention and confusion. He is admitted here also for physical thera py and occupational therapy. The patient's is in the room and said he is pretty much slept all day, but he seemed to really good day yesterday and just somewhat sleepy today. I did wake him up. He did recognize me. He did recognize his , who was not confused, states he just somewhat tired today, but he feels good. He says when it rains he feels tired has been raining today. He has no complaints. He has no pain today. LABORATORY DATA: Today reveals sugar was 70 this afternoon runs between 70-124. OBJECTIVE: VITAL SIGNS: Blood pressure 112/57, pulse 68-95, respirations 18-20, O2 sat 94-95%. T-max 99.8. GENERAL: This is a well-developed, well-nourished, white male in no apparent distress at this time. HEENT: Reveals normocephalic, nontraumatic cranium. Pupils are equally round and reactive. Extrao cular movements intact. Nose and throat slightly dry. NECK: Supple, without masses, nodes or bruits. CHEST: Clear to auscultation. No rales, rhonchi or wheezes are heard. CARDIOVASCULAR: Reveals a regular rate and rhythm without murmurs, gallops or rubs. ABDOMEN: Obese, soft, nontender, without organomegaly. Normal bowel sounds are noted. No rebound or guarding is noted. GI: Deferred. EXTREMITIES: Reveal no clubbing, cyanosis or edema. GENITOURINARY: Reveals Casarez catheter is in place. Urine looks clear today. NEUROLOGIC: The patient is oriented to person, place, and at this time. IMPRESSION: 1. Confusion still much improved. 2. Generalized weakness. 3. Status post recent appendectomy. 4. Paroxysmal atrial fibrillation. 5. History of coronary artery disease. 6. Chronic kidney disease. 7. Hypertension. 8. Hyperlipidemia. 9. Diabetes type 2. PLAN: 1. Continue Accu-Cheks before meals and at bedtime, which have been very good. 2. Continue to follow blood pressure. 3. Continue Casarez at this time. 4. Continue nutritional support. 5. Continue physical therapy and occupational therapy. 6. Continue DVT and stress ulcer prophylaxis. 7. Continued decubitus precautions. Urinalysis is unremarkable.
[2016-09-17] MEDS: Atorvastatin Calcium 10 MG TAB PO SCH (21:42)
[2016-09-17] MEDS: Finasteride 5 MG TAB PO SCH (21:43)
[2016-09-17] MEDS: Latanoprost 0.005% Ophth Soln 2.5 ml Bottle EA EYE SCH (21:43)
[2016-09-17] MEDS: Terazosin HCl 1 MG CAP PO SCH (21:43)
[2016-09-17] MEDS: Levemir Flexpen 100 UNITS/ML PEN SC SCH (21:45)
[2016-09-18 05:56] LABS: INR-International Normal Ratio 3.6; Prothrombin Time 34.9 SEC (12.0-14.7)
[2016-09-18] MEDS: Brimonidine Tartrate 0.2% Ophth Soln 5 ml Bottle EA EYE SCH ×2 (08:42→20:49)
[2016-09-18] MEDS: Ketoconazole 2% Cream 15 gm Tube TOP SCH ×2 (08:43→20:54)
[2016-09-18] MEDS: Furosemide 40 MG TAB PO SCH (08:44)
[2016-09-18] MEDS: Pantoprazole 40 MG GRANULES PACKET PO SCH (08:44)
[2016-09-18] MEDS: Saccharomyces boulardii 250 MG CAP PO SCH (08:44)
[2016-09-18] MEDS: Magnesium Oxide 400 MG TAB PO SCH ×2 (08:44→20:55)
[2016-09-18] MEDS: Carvedilol 25 MG TAB PO SCH ×2 (08:44→20:55)
[2016-09-18] MEDS: AcetaZOLAMIDE 250 MG TAB PO SCH (08:44)
[2016-09-18] MEDS: Aspirin 81 mg Enteric Coated Tablet PO SCH (08:44)
[2016-09-18] MEDS: Glimepiride 2 MG TAB PO SCH (08:45)
[2016-09-18] MEDS: Famotidine 20 MG TAB PO SCH ×2 (08:45→20:48)
[2016-09-18] MEDS: Timolol 0.5% Ophth Soln 5 ml Bottle EA EYE SCH ×2 (08:45→20:50)
[2016-09-18] MEDS ORDERED: Warfarin Sodium 2 MG TAB PO SCH (17:00)
[2016-09-18 18:02] LABS: #Basophils 0.1 thou/uL (0.0-0.2); #Lymphocytes 1.2 thou/uL (1.20-3.40); #Monocytes 0.8 thou/uL (0.11-0.59); #Neutrophils 13.8 thou/uL (1.40-6.50); %Basophils 0.4 % (0.0-1.0); %Eosinophils 0.3 % (0.0-10.0); %Lymphocytes 7.5 % (21.0-51.0); %Monocytes 4.7 % (0.0-10.0); %Neutrophils 87.2 % (42.0-75.0); Hemoglobin 8.6 g/dL (14.0-18.0); Mean Corpuscular Volume 96.8 fl (80.0-94.0); Mean Platelet Volume 7.6 fL (7.4-10.4); Platelet Count 219 thou/uL (130-400); RBC Distribution Width 12.9 % (11.5-14.5); White Blood Cell (WBC) Count 15.8 thou/uL (4.8-10.8)
[2016-09-18 18:19] LABS: ALT (SGPT) 13 U/L (0-55); AST (SGOT) 19 U/L (5-34); Alkaline Phosphatase 46 U/L (40-150); Anion Gap 17 mmol/L (10-20); BUN (Urea Nitrogen) 31 mg/dL (8.4-25.7); Bilirubin, Total 0.3 mg/dL (0.2-1.2); Calc. Creatinine Clearance 35 mL/min (70-130); Carbon Dioxide 20 mmol/L (23-31); Chloride 105 mmol/L (98-107); Estimated GFR-MDRD 35; Globulin 4.1 g/dL (2.4-3.5); Glucose 112 mg/dL (83-110); Potassium 3.6 mmol/L (3.5-5.1); Protein, Total 7.1 g/dL (5.8-8.1); Sodium 138 mmol/L (136-145)
[2016-09-18 18:24] LABS: Bilirubin Negative (Negative); Blood, Urine Large (Negative); Glucose, Urine (Dipstick) Negative (Negative); Leukocyte Moderate (Negative); Nitrite Negative (Negative); Protein, Urine (Dipstick) 30 mg/dL (Neg-Trace); Specific Gravity, Urine 1.015 (1.005-1.030)
[2016-09-18 18:26] LABS: Clarity Hazy (Clear)
[2016-09-18 18:35] LABS: Bacteria/HPF 4+ HPF (None Seen); Squamous Epithelial None Seen HPF (0-3)
--- NOTE | 2016-09-18 18:42 | PRG ---
DATE OF SERVICE: 09/08/2016 DATE OF ADMISSION: 09/02/2016 SUBJECTIVE: Mr. Harrington is a very pleasant 86-year-old white male who states he does not feel very well, is not eat very well, so therefore his hypoglycemic. The patient states he feels like he has low fever and his states that he has been having shaking chills. He did get low and had some shaking chills from that earlier today. Laboratories have been ordered in the form of CBC, comp met and a urinalysis. The patient has no cough. He states he has a cough and has choked in a while. PHYSICAL EXAMINATION: VITAL SIGNS: Blood pressure 107/57, pulse 70-75, respirations 18-20, O2 saturation 95-96% and T-max 98.74. GENERAL: This is a well-developed, well-nourished, thin white male in no apparent distress at this time, just feels a little warmth and states he does not feel well. HEENT: Reveals normocephalic, nontraumatic cranium. Pupils are equally round and reactive. Extraocular movements intact. Nose and throat slightly dry. Forehead ls warm. NECK: Supple, without masses, nodes or bruits. LUNGS: Chest is clear to auscultation. No cough is noted. No rales, no rhonchi, no wheezes are heard. CARDIOVASCULAR: Reveals a regular rate and rhythm without murmurs, gallops or rubs. ABDOMEN: Obese, soft, nontender, without organomegaly. Normal bowel sounds are noted. No rebound or guarding is noted. The patient states he just feels nauseous and does not feel hungry. : Deferred. EXTREMITIES: Reveal no clubbing, cyanosis or edema. Casarez catheter reveals urine looks very clear today. NEUROLOGIC: The patient is oriented to person, place, and time. IMPRESSION: 1. Confusion, much improved. 2. Generalized weakness. 3. Status post recent appendectomy. 4. Paroxysmal atrial fibrillation. 5. History of coronary artery disease. 6. Chronic kidney disease 7. Hypertension. 8. Hyperlipidemia. 9. Diabetes type 2. PLAN: 1. We will repeat labs at this time will include a CBC, a comp met and a urinalysis. 2. Continue Accu-Cheks a.c. and at bedtime. 3. Continue to follow the patient's blood pressure. 4. Continue Casarez at this time. 5. Continue nutritional support. 6. Continue physical therapy and occupational therapy. 7. Continued DVT and stress ulcer prophylaxis. 8. Continue decubitus precautions. 9. Urinalysis pending again. Addendum, CBC has elevated WBC and patient started runnning 102 2 fever. Blood cultures x 2 done. Patient started on Cipro 500mg BID. RUTHIE OLIVARES MTDD
[2016-09-18] MEDS: Acetaminophen 325 MG TAB PO PRN (19:31)
[2016-09-18] MEDS: Ciprofloxacin 500 MG TAB PO SCH (20:49)
[2016-09-18] MEDS: Levemir Flexpen 100 UNITS/ML PEN SC SCH (20:53)
[2016-09-18] MEDS: Latanoprost 0.005% Ophth Soln 2.5 ml Bottle EA EYE SCH (20:53)
[2016-09-18] MEDS: Finasteride 5 MG TAB PO SCH (20:54)
[2016-09-18] MEDS: Atorvastatin Calcium 10 MG TAB PO SCH (20:55)
[2016-09-18] MEDS: Terazosin HCl 1 MG CAP PO SCH (20:55)
[2016-09-19] MEDS: Ciprofloxacin 500 MG TAB PO SCH ×2 (06:06→20:52)
[2016-09-19] MEDS: Acetaminophen 325 MG TAB PO PRN (06:07)
[2016-09-19 07:14] LABS: INR-International Normal Ratio 3.3
[2016-09-19 07:21] LABS: Anion Gap 13 mmol/L (10-20); BUN (Urea Nitrogen) 32 mg/dL (8.4-25.7); Calc. Creatinine Clearance 36 mL/min (70-130); Calcium 7.7 mg/dL (7.8-10.44); Carbon Dioxide 23 mmol/L (23-31); Chloride 105 mmol/L (98-107); Estimated GFR-MDRD 37; Glucose 124 mg/dL (83-110); Potassium 3.4 mmol/L (3.5-5.1); Sodium 138 mmol/L (136-145)
[2016-09-19 07:27] LABS: #Lymphocytes 2.3 thou/uL (1.20-3.40); #Monocytes 0.8 thou/uL (0.11-0.59); #Neutrophils 11.3 thou/uL (1.40-6.50); %Basophils 0.3 % (0.0-1.0); %Lymphocytes 15.7 % (21.0-51.0); %Monocytes 5.6 % (0.0-10.0); %Neutrophils 78.4 % (42.0-75.0); Hemoglobin 7.6 g/dL (14.0-18.0); Mean Corpuscular Hemoglobin 31.2 pg (27.0-31.0); Mean Corpuscular Volume 97.5 fl (80.0-94.0); Mean Platelet Volume 8.2 fL (7.4-10.4); Platelet Count 191 thou/uL (130-400); RBC Distribution Width 12.5 % (11.5-14.5); Red Blood Cell (RBC) Count 2.43 mill/uL (4.70-6.10); White Blood Cell (WBC) Count 14.4 thou/uL (4.8-10.8)
[2016-09-19] MEDS: Pantoprazole 40 MG GRANULES PACKET PO SCH (08:55)
[2016-09-19] MEDS: Saccharomyces boulardii 250 MG CAP PO SCH (08:55)
[2016-09-19] MEDS: Carvedilol 25 MG TAB PO SCH ×2 (08:55→21:16)
[2016-09-19] MEDS: AcetaZOLAMIDE 250 MG TAB PO SCH (08:55)
[2016-09-19] MEDS: Aspirin 81 mg Enteric Coated Tablet PO SCH (08:56)
[2016-09-19] MEDS: Glimepiride 2 MG TAB PO SCH (08:56)
[2016-09-19] MEDS: Magnesium Oxide 400 MG TAB PO SCH ×2 (08:56→21:16)
[2016-09-19] MEDS: Furosemide 40 MG TAB PO SCH (08:57)
[2016-09-19] MEDS: Famotidine 20 MG TAB PO SCH ×2 (08:57→21:16)
[2016-09-19] MEDS: Ketoconazole 2% Cream 15 gm Tube TOP SCH ×2 (08:58→21:16)
[2016-09-19] MEDS: Brimonidine Tartrate 0.2% Ophth Soln 5 ml Bottle EA EYE SCH ×2 (08:58→21:13)
[2016-09-19] MEDS: Timolol 0.5% Ophth Soln 5 ml Bottle EA EYE SCH ×2 (08:59→21:14)
[2016-09-19] MEDS: Sodium Chloride 0.9% 1,000 ML IV SCH ×2 (09:30→15:08)
[2016-09-19] MEDS ORDERED: Sodium Chloride 0.9% 500 ML IVPB SCH (09:45)
--- NOTE | 2016-09-19 10:53 | PRG ---
DATE OF SERVICE: 09/19/2016 HISTORY OF PRESENT ILLNESS: Mr. Harrington is a very pleasant 86-year-old white male initially admitt ed to [facility] for physical therapy and occupational therapy. This was in respons e to him having an appendectomy for acute appendicitis on multiple antibiotics. He eventually was t ransferred here for physical therapy and occupational therapy. He has been doing well until yesterd ay when he started having some fever. I saw him yesterday early in the afternoon, he had a low grad e fever of 100 point something. We did some blood work and found him to have a white count of 15,00 0, a few white cells in his urine and then he spiked a temperature of 102. At that time we went ahe ad and did blood cultures x2. We did start him on some ciprofloxacin. VITAL SIGNS: Vital signs this morning reveal blood pressure 99/51 for which we have given a bolus o f normal saline and started an IV on him. Pulse of 95 to 62, respirations 18, O2 sat 91-98%. His T -max is basically afebrile over the evening and his last maximum temperature was 98.7. LABORATORY: Reveals this morning his white count is down to 14,400, which was 15.8 yesterday aftern oon, hemoglobin 7.6, hematocrit 23.7 and a platelet count 191,000. His sodium is 138, potassium 3.4 , slightly low, chloride 105, carbon dioxide 23 with a BUN 32, creatinine 1.76, glucose of 124. His calcium is 7.7. He did have a urinalysis done yesterday which revealed 7-10 WBCs, moderate leukocy te esterase. PHYSICAL EXAMINATION: GENERAL: This morning the patient is a well-developed, well-nourished, alert, oriented to person, p lace white male in no apparent distress at this time. He states his stomach still feels a little bi t uneasy, but better than yesterday. HEENT: Reveals normocephalic, nontraumatic cranium. Pupils are equally round and reactive. Extrao cular movements intact. Nose and throat slightly dry. NECK: Supple, without masses, nodes or bruits. LUNGS: Chest is clear to auscultation. No rales, no rhonchi, no wheezes are heard. No cough is he spencer. CARDIOVASCULAR: Reveals a regular rate and rhythm without murmurs, gallops or rubs. Yesterday afte rnoon and last night was tachy. This morning is back down in the 60s and 70s. ABDOMEN: Obese, soft, nontender, without organomegaly. Normal bowel sounds are noted. No rebound or guarding is noted. The patient states he feels nauseous. : Deferred. EXTREMITIES: Reveal no clubbing, cyanosis or edema. Casarez catheter reveals very clear urine today. NEUROLOGIC: The patient is oriented to person, place, and time. IMPRESSION: 1. Possible urinary tract infection. 2. Possible stomach virus. 3. Nausea and vomiting with poor oral intake, slightly dehydrated. 4. Generalized weakness. 5. Status post recent appendectomy. 6. Paroxysmal atrial fibrillation. 7. History of coronary artery disease. 8. Chronic kidney disease. 9. Hypertension. 10. Hyperlipidemia. 11. Diabetes type 2. PLAN: 1. Repeat labs tomorrow morning. 2. Continue Accu-Cheks a.c. and at bedtime. 3. Start normal saline IV bolus of 500 at 100 mL an hour. 4. Continue Casarez. 5. Await culture and sensitivities. 6. Continue physical therapy and occupational therapy. 7. Continue DVT and stress ulcer prophylaxis. 8. Continue decubitus precautions. 9. Continue to encourage the patient to eat.
[2016-09-19] MEDS: Latanoprost 0.005% Ophth Soln 2.5 ml Bottle EA EYE SCH (21:14)
[2016-09-19] MEDS: Terazosin HCl 1 MG CAP PO SCH (21:16)
[2016-09-19] MEDS: Atorvastatin Calcium 10 MG TAB PO SCH (21:16)
[2016-09-19] MEDS: Levemir Flexpen 100 UNITS/ML PEN SC SCH (21:17)
[2016-09-19] MEDS: Finasteride 5 MG TAB PO SCH (21:18)
[2016-09-20] MEDS: Sodium Chloride 0.9% 1,000 ML IV SCH ×2 (00:45→17:43)
[2016-09-20] MEDS: Ciprofloxacin 500 MG TAB PO SCH ×2 (06:14→20:56)
[2016-09-20 06:41] LABS: #Basophils 0.1 thou/uL (0.0-0.2); #Eosinphils 0.2 thou/uL (0.0-0.7); #Lymphocytes 2.1 thou/uL (1.20-3.40); #Monocytes 0.9 thou/uL (0.11-0.59); #Neutrophils 6.8 thou/uL (1.40-6.50); %Basophils 0.5 % (0.0-1.0); %Eosinophils 1.5 % (0.0-10.0); %Lymphocytes 21.3 % (21.0-51.0); %Monocytes 8.6 % (0.0-10.0); %Neutrophils 68.1 % (42.0-75.0); Hemoglobin 7.4 g/dL (14.0-18.0); Mean Corpuscular HGB CONC 32.9 g/dL (32.0-36.0); Mean Corpuscular Hemoglobin 31.6 pg (27.0-31.0); Mean Platelet Volume 8.3 fL (7.4-10.4); Platelet Count 182 thou/uL (130-400); Red Blood Cell (RBC) Count 2.33 mill/uL (4.70-6.10); White Blood Cell (WBC) Count 9.9 thou/uL (4.8-10.8)
[2016-09-20 07:06] LABS: Anion Gap 13 mmol/L (10-20); BUN (Urea Nitrogen) 26 mg/dL (8.4-25.7); Calc. Creatinine Clearance 52 mL/min (70-130); Calcium 7.2 mg/dL (7.8-10.44); Carbon Dioxide 19 mmol/L (23-31); Chloride 111 mmol/L (98-107); Estimated GFR-MDRD 56; Glucose 79 mg/dL (83-110); Potassium 3.5 mmol/L (3.5-5.1); Sodium 139 mmol/L (136-145)
[2016-09-20 07:11] LABS: Prothrombin Time 30.6 SEC (12.0-14.7)
[2016-09-20] MEDS: AcetaZOLAMIDE 250 MG TAB PO SCH (08:38)
[2016-09-20] MEDS: Glimepiride 2 MG TAB PO SCH (08:38)
[2016-09-20] MEDS: Aspirin 81 mg Enteric Coated Tablet PO SCH (08:39)
[2016-09-20] MEDS: Carvedilol 25 MG TAB PO SCH ×2 (08:40→20:56)
[2016-09-20] MEDS: Brimonidine Tartrate 0.2% Ophth Soln 5 ml Bottle EA EYE SCH ×2 (08:40→20:58)
[2016-09-20] MEDS: Magnesium Oxide 400 MG TAB PO SCH ×2 (08:41→20:58)
[2016-09-20] MEDS: Famotidine 20 MG TAB PO SCH ×2 (08:41→20:58)
[2016-09-20] MEDS: Ketoconazole 2% Cream 15 gm Tube TOP SCH ×2 (08:41→20:58)
[2016-09-20] MEDS: Pantoprazole 40 MG GRANULES PACKET PO SCH (08:42)
[2016-09-20] MEDS: Timolol 0.5% Ophth Soln 5 ml Bottle EA EYE SCH ×2 (08:43→20:58)
[2016-09-20] MEDS: Saccharomyces boulardii 250 MG CAP PO SCH (08:43)
--- NOTE | 2016-09-20 11:04 | PRG ---
DATE OF SERVICE: 09/20/2016 HISTORY OF PRESENT ILLNESS: Mr. Harrington is a very pleasant 86-year-old white male, patient of Dr. Bradshaw that had an appendectomy for acute appendicitis and postoperatively he was extremely weak an d could not really stand. He was admitted to the hospital at [facility] for physical therapy and occupational therapy. In the last couple days he has been feeling rather poorly. His white count went up to 15,000 and we did some lab work on him, the spiked a temperature of 102, blood cultures x2 were done and we repea jesús some lab work on him. We did start him on ciprofloxacin for a presumed urinary tract infection. Blood cultures so far are negative x2 at 48 hours. Urinary cultures no growth at 48 hours so far. Laboratory today reveals the white count is down to 9900 with hemoglobin of 7.4, hematocrit 22.4, pl atelet count 182,000. He has no shift. His INR was 3.0 this morning. We will restart him tonight at bedtime on Coumadin 3 mg instead of 4 mg daily. Sodium is 139, potassium 3.5, chloride 111, carbon dioxide 19 with a BUN 26 and creatinine 1.22. Webb gar this morning was 79. He is feeling much better. BNP was 887, which is a little high for him. We will stop his IV which only has like 50 mL and discontinue his IV at this time: VITAL SIGNS: Today reveal blood pressure 131/60, pulse 73-80, respirations 18-19, O2 sat 97-98%. PHYSICAL EXAMINATION: GENERAL: This is a well-developed, well-nourished, thin skinny white male in no apparent distress a t this time. He is actually much more alert and talkative today. He is feeling much better. State s he still is eating a little bit, but he kind of chokes at times, but he says he goes through and d oes well. He has no complaints at this time. HEENT: Reveals normocephalic, nontraumatic cranium. Pupils are equally round and reactive. Nose a nd throat slightly dry. NECK: Supple, without masses, nodes or bruits. CHEST: Clear to auscultation. No rales, rhonchi or wheezes are heard. CARDIOVASCULAR: Reveals a regular rate and rhythm without murmurs, gallops or rubs. ABDOMEN: Obese, soft, nontender, without organomegaly, normal bowel sounds are noted. No rebound o r guarding is noted. : Deferred. EXTREMITIES: Reveal no clubbing, cyanosis or edema. He has 2 IV sites and we will move both of tho se today. : Casarez catheter reveals urine is very clear again. NEURO: The patient is oriented to person, place and time today. IMPRESSION: 1. Urinary tract infection. 2. Possible stomach virus. 3. Nausea and vomiting, poor oral intake, much improved. 4. Generalized weakness status post recent appendectomy. 5. Paroxysmal atrial fibrillation. 6. History of coronary artery disease. 7. Chronic kidney disease. 8. Hypertension. 9. Hyperlipidemia. 10. Diabetes type 2. PLAN: 1. Continue Accu-Cheks a.c. and at bedtime. 2. We will stop the IV normal saline at this time. 3. Continue to await culture and sensitivities. 4. Continue physical therapy and occupational therapy. 5. Continue DVT and stress ulcer prophylaxis. 6. Continue decubitus precautions. 7. Encourage the patient to eat.
[2016-09-20] MEDS: Warfarin Sodium 3 MG TAB PO SCH (17:00)
[2016-09-20] MEDS: Terazosin HCl 1 MG CAP PO SCH (20:56)
[2016-09-20] MEDS: Finasteride 5 MG TAB PO SCH (20:58)
[2016-09-20] MEDS: Atorvastatin Calcium 10 MG TAB PO SCH (20:58)
[2016-09-20] MEDS: Latanoprost 0.005% Ophth Soln 2.5 ml Bottle EA EYE SCH (20:59)
[2016-09-20] MEDS: Levemir Flexpen 100 UNITS/ML PEN SC SCH (21:03)
[2016-09-21] MEDS: Ciprofloxacin 500 MG TAB PO SCH ×2 (06:10→20:50)
[2016-09-21 07:17] LABS: #Basophils 0.1 thou/uL (0.0-0.2); #Eosinphils 0.3 thou/uL (0.0-0.7); #Lymphocytes 2.3 thou/uL (1.20-3.40); #Monocytes 0.8 thou/uL (0.11-0.59); #Neutrophils 4.2 thou/uL (1.40-6.50); %Basophils 0.8 % (0.0-1.0); %Eosinophils 3.9 % (0.0-10.0); %Lymphocytes 30.1 % (21.0-51.0); %Monocytes 10.4 % (0.0-10.0); %Neutrophils 54.9 % (42.0-75.0); Mean Corpuscular HGB CONC 33.5 g/dL (32.0-36.0); Mean Corpuscular Hemoglobin 32.5 pg (27.0-31.0); Mean Corpuscular Volume 96.8 fl (80.0-94.0); Mean Platelet Volume 7.8 fL (7.4-10.4); Platelet Count 184 thou/uL (130-400); Red Blood Cell (RBC) Count 2.15 mill/uL (4.70-6.10); White Blood Cell (WBC) Count 7.7 thou/uL (4.8-10.8)
[2016-09-21 07:23] LABS: Anion Gap 11 mmol/L (10-20); BUN (Urea Nitrogen) 21 mg/dL (8.4-25.7); Calc. Creatinine Clearance 56 mL/min (70-130); Calcium 7.6 mg/dL (7.8-10.44); Carbon Dioxide 19 mmol/L (23-31); Chloride 111 mmol/L (98-107); Estimated GFR-MDRD 61; Glucose 104 mg/dL (83-110); Potassium 3.6 mmol/L (3.5-5.1); Sodium 137 mmol/L (136-145)
[2016-09-21 07:27] LABS: INR-International Normal Ratio 2.4; Prothrombin Time 25.5 SEC (12.0-14.7)
[2016-09-21] MEDS: Saccharomyces boulardii 250 MG CAP PO SCH (08:10)
[2016-09-21] MEDS: Timolol 0.5% Ophth Soln 5 ml Bottle EA EYE SCH ×2 (08:11→21:19)
[2016-09-21] MEDS: AcetaZOLAMIDE 250 MG TAB PO SCH (08:12)
[2016-09-21] MEDS: Magnesium Oxide 400 MG TAB PO SCH ×2 (08:12→21:18)
[2016-09-21] MEDS: Pantoprazole 40 MG GRANULES PACKET PO SCH (08:12)
[2016-09-21] MEDS: Glimepiride 2 MG TAB PO SCH (08:14)
[2016-09-21] MEDS: Famotidine 20 MG TAB PO SCH ×2 (08:14→21:18)
[2016-09-21] MEDS: Carvedilol 25 MG TAB PO SCH ×2 (08:15→21:18)
[2016-09-21] MEDS: Aspirin 81 mg Enteric Coated Tablet PO SCH (08:15)
[2016-09-21] MEDS: Ketoconazole 2% Cream 15 gm Tube TOP SCH ×2 (08:20→21:20)
[2016-09-21] MEDS: Brimonidine Tartrate 0.2% Ophth Soln 5 ml Bottle EA EYE SCH ×2 (08:20→21:19)
[2016-09-21] MEDS: Warfarin Sodium 3 MG TAB PO SCH (17:25)
--- NOTE | 2016-09-21 17:44 | PRG ---
DATE OF SERVICE: 09/21/2016 HISTORY OF PRESENT ILLNESS: Mr. Harrington is a very pleasant 86-year-old white male is doing much be tter. He is walking much better. I did have a long discussion with physical therapy and he is doin g somewhat better that he most likely be able to be discharged on Monday. He is able to continue hi s progress at this time. He has no complaints today except he would like to be a DNR and his medical records we did accomplis h that. His has no complaints today. LABORATORY DATA: Today was revealed a white count of 7700, hemoglobin 7.0, hematocrit 20.8. The IN R is 2.4 today. Sodium is 137, potassium 3.6, chloride 111, carbon dioxide 19 with a BUN of 21, cre atinine 1.13 and his GFR is up to 61. Point of care sugar this morning was 104. His BNP was down t o 627. PHYSICAL EXAMINATION: GENERAL: This is a well-developed, well-nourished, very pleasant white male in no apparent distress at this time. HEENT: Reveals normocephalic, nontraumatic cranium. Pupils are equally round and reactive. Extrao cular movements are intact. Nose and throat slight dry. NECK: Supple, without mass, nodes or bruits. CHEST: Clear to auscultation. No rales, rhonchi or wheezes are heard. HEART: Reveals a regular rate and rhythm without murmurs, gallops or rubs. No signs or symptoms of congestive heart failure. ABDOMEN: Slightly obese, soft, nontender, without organomegaly. Normal bowel sounds are noted. No rebound or guarding is noted. : Deferred. EXTREMITIES: Reveal no clubbing, cyanosis or edema. NEUROLOGIC: He has no IVs at this time. Casarez catheter is still very clear. The patient is to per son, place, and time today. IMPRESSION: 1. Urinary tract infection, much improved. 2. Probable stomach virus. 3. Nausea and vomiting, much improved. 4. Generalized weakness, much improved. 5. Paroxysmal atrial fibrillation. 6. History of coronary artery disease. 7. Chronic kidney disease. 8. Hypertension. 9. Hyperlipidemia. 10. Diabetes type 2. PLAN: 1. Continue Accu-Cheks a.c. and at bedtime. 2. Continue lab tomorrow. 3. IVs have been stopped. 4. Culture and sensitivities are still negative. 5. Continue physical therapy and occupational therapy. 6. Continue DVT and stress ulcer prophylaxis. 7. Continue decubitus precautions. 8. Encourage the patient the plan. 9. The patient most likely will be discharged on Monday.
[2016-09-21] MEDS: Finasteride 5 MG TAB PO SCH (21:18)
[2016-09-21] MEDS: Atorvastatin Calcium 10 MG TAB PO SCH (21:18)
[2016-09-21] MEDS: Latanoprost 0.005% Ophth Soln 2.5 ml Bottle EA EYE SCH (21:19)
[2016-09-21] MEDS: Terazosin HCl 1 MG CAP PO SCH (21:19)
[2016-09-21] MEDS: Levemir Flexpen 100 UNITS/ML PEN SC SCH (21:21)
[2016-09-22 05:13] LABS: #Basophils 0.1 thou/uL (0.0-0.2); #Eosinphils 0.2 thou/uL (0.0-0.7); #Lymphocytes 2.1 thou/uL (1.20-3.40); #Monocytes 0.8 thou/uL (0.11-0.59); #Neutrophils 4.1 thou/uL (1.40-6.50); %Basophils 0.9 % (0.0-1.0); %Lymphocytes 28.8 % (21.0-51.0); %Monocytes 11.1 % (0.0-10.0); %Neutrophils 56.2 % (42.0-75.0); Hemoglobin 6.9 g/dL (14.0-18.0); Mean Corpuscular HGB CONC 33.3 g/dL (32.0-36.0); Mean Corpuscular Hemoglobin 31.8 pg (27.0-31.0); Mean Corpuscular Volume 95.5 fl (80.0-94.0); Mean Platelet Volume 6.8 fL (7.4-10.4); Platelet Count 191 thou/uL (130-400); RBC Distribution Width 12.6 % (11.5-14.5); Red Blood Cell (RBC) Count 2.17 mill/uL (4.70-6.10); White Blood Cell (WBC) Count 7.2 thou/uL (4.8-10.8)
[2016-09-22] MEDS: Ciprofloxacin 500 MG TAB PO SCH ×2 (05:24→20:41)
[2016-09-22 05:26] LABS: INR-International Normal Ratio 2.5; Prothrombin Time 27.8 SEC (12.0-14.7)
[2016-09-22 05:30] LABS: Anion Gap 12 mmol/L (10-20); BUN (Urea Nitrogen) 18 mg/dL (8.4-25.7); Calc. Creatinine Clearance 59 mL/min (70-130); Calcium 7.8 mg/dL (7.8-10.44); Carbon Dioxide 17 mmol/L (23-31); Chloride 111 mmol/L (98-107); Estimated GFR-MDRD 65; Glucose 98 mg/dL (83-110); Potassium 3.9 mmol/L (3.5-5.1); Sodium 136 mmol/L (136-145)
[2016-09-22] MEDS: Saccharomyces boulardii 250 MG CAP PO SCH (08:57)
[2016-09-22] MEDS: Glimepiride 2 MG TAB PO SCH (08:57)
[2016-09-22] MEDS: Carvedilol 25 MG TAB PO SCH ×2 (08:58→20:43)
[2016-09-22] MEDS: AcetaZOLAMIDE 250 MG TAB PO SCH (08:58)
[2016-09-22] MEDS: Aspirin 81 mg Enteric Coated Tablet PO SCH (08:58)
[2016-09-22] MEDS: Famotidine 20 MG TAB PO SCH ×2 (08:58→20:40)
[2016-09-22] MEDS: Magnesium Oxide 400 MG TAB PO SCH ×2 (08:58→20:40)
[2016-09-22] MEDS: Pantoprazole 40 MG GRANULES PACKET PO SCH (08:59)
[2016-09-22] MEDS: Timolol 0.5% Ophth Soln 5 ml Bottle EA EYE SCH ×2 (08:59→20:42)
[2016-09-22] MEDS: Brimonidine Tartrate 0.2% Ophth Soln 5 ml Bottle EA EYE SCH ×2 (09:00→20:41)
[2016-09-22] MEDS: Ketoconazole 2% Cream 15 gm Tube TOP SCH ×2 (09:01→20:41)
--- NOTE | 2016-09-22 11:46 | PRG ---
DATE OF SERVICE: 09/22/2016 HISTORY OF PRESENT ILLNESS: Mr. Harrington is a very pleasant 86-year-old white male that seems to be doing much better. He did walk quite a bit yesterday. He was found to be anemic today so we will type and cross him for a couple units, that should give him some extra strength. He is walking well and was scheduled to go home tomorrow. Also, we will do a trial of stopping his Casarez catheter. The patient and his are okay with this plan to stop his Casarez and give him some blood. PHYSICAL EXAMINATION: GENERAL: This is a well-developed, well-nourished, very thin white male in no apparent distress at this time. HEENT: Reveals normocephalic, nontraumatic cranium. Pupils equally round and reactive. Extraocula r movements intact. Nose and throat are slightly dry. NECK: Supple, without masses, nodes or bruits. CHEST: Clear to auscultation. No rales, rhonchi or wheezes are heard. CARDIOVASCULAR: Reveals a regular rate and rhythm without murmurs, gallops or rubs. ABDOMEN: Obese, soft, nontender, without organomegaly. Normal bowel sounds are noted. No rebound or guarding is noted. : Reveals Casarez catheter intact. We will try to discontinue and see if he can urinate on his own . He has had some urinary retention, but he has been on medication for that. EXTREMITIES: Reveal no clubbing, cyanosis or edema. NEUROLOGIC: The patient is much improved. IMPRESSION: 1. Urinary tract infection, resolved. 2. Stomach virus, resolved. 3. Nausea, vomiting, much improved. 4. Generalized weakness, much improved. 5. Paroxysmal atrial fibrillation. 6. History of coronary artery disease. 7. Urinary retention. 8. Chronic kidney disease. 9. Hypertension. 10. Hyperlipidemia. 11. Diabetes type 2. PLAN: 1. We will discontinue the Casarez and see if he can urinate without having urinary retention. 2. Accu-Cheks a.c. and at bedtime. 3. We will type and cross him for 2 units and give him 2 units of packed red blood cells. 4. We will repeat labs tomorrow morning. 5. The patient is eating much better. 6. Continue physical therapy and occupational therapy. 7. Continue DVT and stress ulcer prophylaxis. 8. Continue decubitus precautions. 9. Encourage the patient to walk. 10. Discharge planned for tomorrow afternoon.
[2016-09-22] MEDS ORDERED: Sodium Chloride 0.9% 20 ML ONE (12:11)
[2016-09-22] MEDS: Warfarin Sodium 3 MG TAB PO SCH (16:55)
[2016-09-22] MEDS: Levemir Flexpen 100 UNITS/ML PEN SC SCH (20:40)
[2016-09-22] MEDS: Terazosin HCl 1 MG CAP PO SCH (20:40)
[2016-09-22] MEDS: Atorvastatin Calcium 10 MG TAB PO SCH (20:40)
[2016-09-22] MEDS: Latanoprost 0.005% Ophth Soln 2.5 ml Bottle EA EYE SCH (20:41)
[2016-09-22] MEDS: Finasteride 5 MG TAB PO SCH (20:41)
[2016-09-23 05:19] LABS: #Basophils 0.1 thou/uL (0.0-0.2); #Eosinphils 0.3 thou/uL (0.0-0.7); #Lymphocytes 0.9 thou/uL (1.20-3.40); #Monocytes 0.6 thou/uL (0.11-0.59); #Neutrophils 4.9 thou/uL (1.40-6.50); %Lymphocytes 13.8 % (21.0-51.0); %Monocytes 9.3 % (0.0-10.0); Hemoglobin 9.1 g/dL (14.0-18.0); Mean Corpuscular HGB CONC 32.9 g/dL (32.0-36.0); Mean Corpuscular Hemoglobin 30.2 pg (27.0-31.0); Mean Corpuscular Volume 92.1 fl (80.0-94.0); Mean Platelet Volume 7.3 fL (7.4-10.4); Platelet Count 204 thou/uL (130-400); RBC Distribution Width 13.7 % (11.5-14.5); Red Blood Cell (RBC) Count 3.02 mill/uL (4.70-6.10); White Blood Cell (WBC) Count 6.8 thou/uL (4.8-10.8)
[2016-09-23 05:36] LABS: Anion Gap 11 mmol/L (10-20); BUN (Urea Nitrogen) 14 mg/dL (8.4-25.7); Calc. Creatinine Clearance 61 mL/min (70-130); Calcium 7.8 mg/dL (7.8-10.44); Carbon Dioxide 15 mmol/L (23-31); Chloride 111 mmol/L (98-107); Estimated GFR-MDRD 68; Glucose 96 mg/dL (83-110); Potassium 4.1 mmol/L (3.5-5.1); Sodium 133 mmol/L (136-145)
[2016-09-23 05:37] LABS: INR-International Normal Ratio 2.4
[2016-09-23] MEDS: Ciprofloxacin 500 MG TAB PO SCH (05:44)
[2016-09-23 07:14] VITALS: BP 138/68; TEMP 99.4
[2016-09-23] MEDS: Aspirin 81 mg Enteric Coated Tablet PO SCH (08:17)
[2016-09-23] MEDS: Pantoprazole 40 MG GRANULES PACKET PO SCH (08:17)
[2016-09-23] MEDS: Carvedilol 25 MG TAB PO SCH (08:18)
[2016-09-23] MEDS: AcetaZOLAMIDE 250 MG TAB PO SCH (08:18)
[2016-09-23] MEDS: Glimepiride 2 MG TAB PO SCH (08:19)
[2016-09-23] MEDS: Saccharomyces boulardii 250 MG CAP PO SCH (08:19)
[2016-09-23] MEDS: Magnesium Oxide 400 MG TAB PO SCH (08:19)
[2016-09-23] MEDS: Famotidine 20 MG TAB PO SCH (08:20)
[2016-09-23] MEDS: Ketoconazole 2% Cream 15 gm Tube TOP SCH (08:20)
[2016-09-23] MEDS: Brimonidine Tartrate 0.2% Ophth Soln 5 ml Bottle EA EYE SCH (08:21)
[2016-09-23] MEDS: Timolol 0.5% Ophth Soln 5 ml Bottle EA EYE SCH (08:21)
--- NOTE | 2016-09-23 14:08 | DIS ---
DATE OF ADMISSION: 09/02/2016 DATE OF DISCHARGE: 09/23/2016 HOSPITAL COURSE: Mr. Harrington is a very pleasant 86-year-old white male, admitted to the hospital w ith significant weakness, paroxysmal atrial fibrillation, coronary artery disease, urinary retention with urinary tract infection, chronic kidney disease, stomach virus, nausea and vomiting, etc. The patient was admitted to the hospital and found to be very weak and was placed in physical therap y and occupational therapy. He has actually done very well. He is able to walk. His urinary tract infections are clearing. He needs continued urinary antibiotics, but is ready for discharge today. His is in the room. We had significant discussion about the medications. DISCHARGE MEDICATIONS: Include the following; 1. Tylenol p.r.n. 2. [place] 1 tab q.6 hours p.r.n. 3. Diamox or Acetazolamide 125 mg daily. 4. Aspirin 81 mg a day. 5. Simvastatin 20 mg daily. 6. Alphagan ophthalmic drops one drop each eye twice a day. 7. Coreg, which is 25 mg twice a daily. 8. Ciprofloxacin 500 mg twice a day for 5 more days. 9. Zantac 150 mg twice a day. 10. Proscar, which is a new medicine, 5 mg every evening. 11. Amaryl 1 mg daily with meals. 12. Levemir/Lantus 20 units subcutaneously at bedtime. 13. Xalatan eyedrops 1 drop each eye at bedtime. 14. Mag oxide 400 mg twice a day. 15. Hytrin 1 mg at bedtime. 16. Coumadin 3 mg each day. PHYSICAL EXAMINATION: GENERAL: This is a well-developed, well-nourished, very pleasant 86-year-old white male, in no appa rent distress at this time. HEENT: Reveals normocephalic and nontraumatic cranium. Pupils are equally round and reactive. Ext raocular movements are intact. Nose and throat are slightly dry. NECK: Supple, without masses, nodes or bruits. CHEST: Clear to auscultation. No rales, rhonchi, wheezes or cough heard. HEART: Reveals a regular rate and rhythm without murmurs, gallops or rubs. ABDOMEN: Obese, soft and nontender, without organomegaly. Normal bowel sounds are noted. No rebou nd or guarding is noted. GENITOURINARY: Reveals a Casarez catheter that has been removed, the patient is voiding adequately. He will remain on his Proscar and his Hytrin. He has no urinary retention over the evening. EXTREMITIES: Reveal no clubbing, cyanosis or edema. NEUROLOGIC: The patient is much improved and his strength is much improved. IMPRESSION: 1. Generalized weakness, much improved. 2. Urinary tract infection with current treatment of Cipro twice a day for 5 more days. 3. Stomach virus, resolved. 4. Nausea and vomiting, resolved. 5. Paroxysmal atrial fibrillation. 6. Coronary artery disease. 7. Urinary retention, much improved. 8. Chronic kidney disease. 9. Hypertension. 10. Hyperlipidemia. 11. Diabetes type 2. PLAN: 1. The patient is for discharge today. 2. Medications as listed above. 3. Casarez catheter has been removed and he is doing well. 4. Anemia. The patient was typed and crossed for 2 units yesterday and given 2 units of packed red blood cells and his blood counts today are excellent. 5. The patient is eating well. 6. The patient after discussion with physical therapy and occupational therapy, they felt that he w as safe to go home. 7. We will continue stress ulcer prophylaxis. 8. Continue decubitus precautions. 9. Encouraged the patient to walk. 10. The patient will be seen by home health where he will continue to get home health director geophysical laboratory apy. 11. Prescriptions for this patient include Proscar 5 mg, #30, no refills; warfarin 3 mg, #30, one a t bedtime, no refills and Cipro 500 mg, #10 b.i.d. until out. The patient is ready for discharge. He will have physical therapy this morning, he does not have the physical therapy this afternoon and then he will be discharged.
== END 2016-09-23 14:30 | disposition home health service (06) | DRG 949 ==
LOC: NAV ACUTE 12:20
PROVIDERS: ADMIT Internal Medicine; ATTEND Internal Medicine
PROC: 30233N1 Transfusion of Nonautologous Red Blood Cells into Peripheral Vein, Percutaneous Approach (ICD-10-PCS; principal; 2016-09-22)
DX: Z48.815 Encounter for surgical aftercare following surgery on the digestive system (principal); N39.0 Urinary tract infection, site not specified; E11.22 Type 2 diabetes mellitus with diabetic chronic kidney disease; D64.9 Anemia, unspecified; E11.9 Type 2 diabetes mellitus without complications; I12.9 Hypertensive chronic kidney disease with stage 1 through stage 4 chronic kidney disease, or unspecified chronic kidney disease; I48.0 Paroxysmal atrial fibrillation; I25.10 Atherosclerotic heart disease of native coronary artery without angina pectoris; N18.3 Chronic kidney disease, stage 3 (moderate); Z86.718 Personal history of other venous thrombosis and embolism; R33.9 Retention of urine, unspecified; B97.89 Other viral agents as the cause of diseases classified elsewhere; R11.2 Nausea with vomiting, unspecified
CPT/HCPCS: 36415; 36416; 36430; 80048; 80053; 81001; 81003; 82274; 83880; 84134; 85025; 85610; 86850; 86900; 86901; 87040; 87077; 87086; 87186; 87324; 87449; A4216; G8996-GN-CK; G8997-GN-CJ; J1815; J7050; P9016

== ENCOUNTER 2016-10-26 10:38 | Outpatient (CLI) | payer MEDICARE ==
[2016-10-26 13:12] LABS: #Basophils 0.1 thou/uL (0.0-0.2); #Eosinphils 0.1 thou/uL (0.0-0.7); #Lymphocytes 3.5 thou/uL (1.20-3.40); #Neutrophils 4.2 thou/uL (1.40-6.50); %Basophils 0.8 % (0.0-1.0); %Eosinophils 1.2 % (0.0-10.0); %Lymphocytes 39.6 % (21.0-51.0); %Neutrophils 47.4 % (42.0-75.0); Hemoglobin 10.3 g/dL (14.0-18.0); Mean Corpuscular HGB CONC 31.9 g/dL (32.0-36.0); Mean Corpuscular Hemoglobin 31.1 pg (27.0-31.0); Mean Corpuscular Volume 97.5 fl (80.0-94.0); Mean Platelet Volume 8.3 fL (7.4-10.4); Platelet Count 261 thou/uL (130-400); RBC Distribution Width 15.2 % (11.5-14.5); White Blood Cell (WBC) Count 8.9 thou/uL (4.8-10.8)
[2016-10-26 13:27] LABS: Anion Gap 14 mmol/L (10-20); BUN (Urea Nitrogen) 12 mg/dL (8.4-25.7); Calc. Creatinine Clearance 0 mL/min (70-130); Calcium 8.7 mg/dL (7.8-10.44); Carbon Dioxide 22 mmol/L (23-31); Chloride 105 mmol/L (98-107); Estimated GFR-MDRD 50; Glucose 84 mg/dL (83-110); Potassium 3.8 mmol/L (3.5-5.1); Sodium 137 mmol/L (136-145)
== END 2016-10-26 10:39 ==
LOC: NAVSJIPCSP 10:38
PROVIDERS: ATTEND Internal Medicine
DX: N18.2 Chronic kidney disease, stage 2 (mild) (principal); D62 Acute posthemorrhagic anemia
CPT/HCPCS: 36415; 80048; 85025

== ENCOUNTER 2017-07-07 15:30 | Inpatient (IN) | payer MEDICARE ==
[2017-07-07] MEDS ORDERED: Milk Of Magnesia 30 ML UDCUP PO PRN (19:01)
[2017-07-07] MEDS ORDERED: Guaifenesin DM 100-10/5 ML UDCUP PO PRN (19:01)
[2017-07-07] MEDS ORDERED: Loperamide HCl 2 MG CAP PO PRN (19:01)
--- NOTE | 2017-07-07 20:06 | HP ---
DATE OF ADMISSION: 07/07/2017 DATE OF HISTORY AND PHYSICAL: 07/07/2017 HISTORY OF PRESENT ILLNESS: Mr. Harrington is a very pleasant 86-year-old white male that unfortunatel y was walking into his house when he is tripped and fell. He landed on his right side with a resulta nt right acetabular fracture and a right humeral head fracture. He was admitted to [facility], stabilized and seen in evaluation by Dr. Martinez, who recommended nonoperative conservative the rapy. The patient was eventually stabilized and transferred to [facility] for physical therapy assistant instructor apy and occupational therapy. PAST MEDICAL HISTORY: Positive for: 1. Hypertension. 2. Paroxysmal atrial fibrillation. 3. Congestive heart failure. 4. Peptic ulcer disease. 5. Coronary artery disease. 6. Chronic kidney disease stage 3. 7. Chronic anemia. 8. History of deep venous thrombosis, previously on Coumadin. 9. Glaucoma. 10. Blindness. PAST SURGICAL HISTORY: 1. Cholecystectomy. 2. Appendectomy. 3. Glaucoma surgery. 4. ORIF of the right hip. 5. EGD and colonoscopy. PRESENT MEDICATIONS: Reveal the patient is presently on the following, 1. Acetaminophen 1000 mg q.6 hours p.r.n. 2. Vitamin C of 1000 mg b.i.d. 3. Aspirin 81 mg a day. 4. Carvedilol 25 mg b.i.d. 5. Feosol 325 mg b.i.d. 6. Finasteride 5 mg every day. 7. Folic acid 1 mg a day. 8. Furosemide 40 mg b.i.d. 9. Amaryl 1 mg q.a.m. 10. Xalatan 0.005% 1 drop in each eye at bedtime. 11. Magnesium oxide 400 mg b.i.d. 12. Protonix 40 mg a day. 13. Potassium chloride 40 mEq b.i.d. 14. Ranitidine 150 mg b.i.d. 15. Senna plus 1 pill twice a day. 16. Terazosin 1 mg at bedtime. 17. Timolol eyedrops 1 drop each eye every day. 18. Tramadol 50 mg at 0300, 0900, 1500, and 2100 hours. ALLERGIES: The patient is noted to be allergic to CODEINE and past history possibly of SULFA DRUGS. FAMILY HISTORY: Unremarkable. SOCIAL HISTORY: Reveals the patient is a former smoker. He does not use alcohol. He is not a drug abuser. He is legally blind. He lives with his son and his . He ambulates usually with a walke r and lives in [place]. REVIEW OF SYSTEMS: The patient denies any fever or chills. He states he is actually pretty weak. H e denies any vision problems besides his blindness or hearing problems. The patient denies any upper respiratory cough, cold, congestion, or wheezing. The patient denies any chest pain, palpitations, chest pain that radiates to her arms, shoulders, neck, or to the ears. Patient denies any nausea, vomiting, diarrhea, constipation, bloody stools. The patient denies any u rinary urgency, frequency, dysuria or hematuria. Neurologic: The patient is blind, but is able to recognize objects. He is oriented to person, place , time, and situation. PHYSICAL EXAMINATION: GENERAL: This is a well-developed, well-nourished, very pleasant white male in no apparent distress at this time. HEENT: Reveals normocephalic, nontraumatic cranium. Pupils are equally round and reactive. Extraoc ular movements are intact. The nose and throat are dry, but clear. NECK: Supple, without masses, nodes or bruits. CHEST: Clear to auscultation. No rales, rhonchi or wheezes are heard. HEART: Reveals a regular rate and rhythm without murmurs, gallops or rubs. ABDOMEN: Soft, nontender, without organomegaly. : Deferred. EXTREMITIES: Reveal no clubbing, cyanosis or edema. The patient's right arm is in a sling and swoll en and bruised. Patient's right hip is in bed, not surgically treated. ASSESSMENT: 1. Right proximal humeral fracture. 2. Right acetabular fracture. 3. Extraperitoneal hematoma. 4. Diabetes type 2. 5. Hypertension. 6. Hyperlipidemia. 7. Paroxysmal atrial fibrillation. 8. Chronic kidney disease. 9. Generalized weakness. 10. Blindness. 11. Peptic ulcer disease. 12. History of deep venous thrombosis in the past, on warfarin. 13. Chronic anemia. PLAN: 1. Patient will be evaluated by physical therapy and occupational therapy. 2. We will continue his present medications. 3. Continue to encourage the patient to keep his arm in a sling and hanging down and nonweightbearin g and toe touch on the right hip. 4. Stress ulcer prophylaxis. 5. DVT prophylaxis. 6. Decubitus precautions. 7. Physical therapy and occupational therapy.
[2017-07-07] MEDS ORDERED: Non-Formulary Item 1 EACH (Ranitidine Hcl [Ranitidine Hcl] 150 MG) PO SCH (21:00)
[2017-07-07] MEDS ORDERED: Famotidine 20 MG TAB PO SCH (21:00)
[2017-07-07] MEDS: Potassium Chloride 20 MEQ TAB PO SCH (21:58)
[2017-07-07] MEDS: Senokot S 8.6-50 MG TAB PO SCH (21:58)
[2017-07-07] MEDS: Ascorbic Acid 500 mg Chewable Tablet PO SCH (21:58)
[2017-07-07] MEDS: Magnesium Oxide 400 MG TAB PO SCH (21:59)
[2017-07-07] MEDS: traMADol HCl 50 MG TAB PO SCH (21:59)
[2017-07-07] MEDS: Carvedilol 25 MG TAB PO SCH (21:59)
[2017-07-07] MEDS: Latanoprost 0.005% Ophth Soln 2.5 ml Bottle EA EYE SCH (22:00)
[2017-07-07] MEDS: Terazosin HCl 1 MG CAP PO SCH (22:00)
[2017-07-07] MEDS: Timolol 0.5% Ophth Soln 5 ml Bottle EA EYE SCH (22:00)
[2017-07-07] MEDS: Bisacodyl 10 MG SUPP PR SCH (22:00)
[2017-07-08] MEDS: Acetaminophen 500 MG TAB PO SCH ×5 (00:29→23:11)
[2017-07-08] MEDS: traMADol HCl 50 MG TAB PO SCH ×4 (02:50→20:37)
[2017-07-08] MEDS: Bisacodyl 10 MG SUPP PR SCH ×3 (05:46→20:41)
[2017-07-08] MEDS: Furosemide 40 MG TAB PO SCH ×2 (05:48→15:49)
[2017-07-08 06:02] LABS: #Basophils 0.1 thou/uL (0.0-0.2); #Eosinphils 0.2 thou/uL (0.0-0.7); #Lymphocytes 2.1 thou/uL (1.20-3.40); #Monocytes 1.5 thou/uL (0.11-0.59); %Basophils 0.6 % (0.0-1.0); %Eosinophils 1.5 % (0.0-10.0); %Lymphocytes 17.5 % (21.0-51.0); %Monocytes 12.6 % (0.0-10.0); %Neutrophils 67.9 % (42.0-75.0); Hemoglobin 6.5 g/dL (14.0-18.0); Mean Corpuscular HGB CONC 33.8 g/dL (32.0-36.0); Mean Corpuscular Hemoglobin 32.7 pg (27.0-31.0); Mean Corpuscular Volume 96.8 fl (80.0-94.0); Mean Platelet Volume 9.6 fL (7.4-10.4); Platelet Count 143 thou/uL (130-400); RBC Distribution Width 12.2 % (11.5-14.5); Red Blood Cell (RBC) Count 1.99 mill/uL (4.70-6.10); White Blood Cell (WBC) Count 11.8 thou/uL (4.8-10.8)
[2017-07-08 06:12] LABS: ALT (SGPT) 14 U/L (8-55); AST (SGOT) 17 U/L (5-34); Albumin 2.9 g/dL (3.4-4.8); Alkaline Phosphatase 44 U/L (40-150); Anion Gap 11 mmol/L (10-20); BUN (Urea Nitrogen) 25 mg/dL (8.4-25.7); Bilirubin, Total 0.8 mg/dL (0.2-1.2); Calc. Creatinine Clearance 53 mL/min (70-130); Calcium 8.2 mg/dL (7.8-10.44); Carbon Dioxide 24 mmol/L (23-31); Chloride 106 mmol/L (98-107); Estimated GFR-MDRD 50; Globulin 2.8 g/dL (2.4-3.5); Glucose 147 mg/dL (83-110); Potassium 4.8 mmol/L (3.5-5.1); Protein, Total 5.7 g/dL (5.8-8.1); Sodium 136 mmol/L (136-145)
[2017-07-08] MEDS ORDERED: FLU VACC QS2017-18 36 mo. & older 0.5 ML SYRINGE IM ONE (09:00)
[2017-07-08] MEDS: Potassium Chloride 20 MEQ TAB PO SCH ×2 (09:41→20:37)
[2017-07-08] MEDS: Folic Acid 1 MG TAB PO SCH (09:41)
[2017-07-08] MEDS: Magnesium Oxide 400 MG TAB PO SCH ×2 (09:42→20:38)
[2017-07-08] MEDS: Carvedilol 25 MG TAB PO SCH ×2 (09:42→20:37)
[2017-07-08] MEDS: Famotidine 20 MG TAB PO SCH (09:42)
[2017-07-08] MEDS: Ferrous Sulfate 325 MG TAB PO SCH ×2 (09:43→18:13)
[2017-07-08] MEDS: Ascorbic Acid 500 mg Chewable Tablet PO SCH ×2 (09:43→20:36)
[2017-07-08] MEDS: Finasteride 5 MG TAB PO SCH (09:44)
[2017-07-08] MEDS: Glimepiride 2 MG TAB PO SCH (09:44)
[2017-07-08] MEDS: Timolol 0.5% Ophth Soln 5 ml Bottle EA EYE SCH ×2 (09:45→20:40)
[2017-07-08] MEDS: Polyethylene Glycol 3350 17 GM Packet PO SCH (09:46)
[2017-07-08] MEDS: Senokot S 8.6-50 MG TAB PO SCH ×2 (09:47→20:41)
[2017-07-08] MEDS: Terazosin HCl 1 MG CAP PO SCH (20:37)
[2017-07-08] MEDS: Latanoprost 0.005% Ophth Soln 2.5 ml Bottle EA EYE SCH (20:40)
--- NOTE | 2017-07-08 20:44 | PRG ---
DATE OF SERVICE: 07/08/2017 Mr. Harrington is a very pleasant 86-year-old confused white male. He was walking into his house, he t ripped and fell landing on his right side with resultant right acetabular fracture and right humeral head fracture. At [facility], seen and evaluation by Dr. Martinez, he recommended nonopera tive conservative therapy. The patient was eventually stabilized and then transferred to [facility]. He is here for physical therapy and occupational therapy. SUBJECTIVE: The patient states he had a bad day today, but he would not elaborate, he said he just d oes not want to talk about it. Patient states he has been somewhat confused today. But he is eating fair, not having any significant pain. OBJECTIVE: VITAL SIGNS: Reveal blood pressure 122/58, pulse 86-88, respirations 17-18, O2 sat 91% to 96% on garfield m air, and T-max 98.9. LABORATORY DATA: Reveals white count 11,800 with hemoglobin of 6.5, hematocrit 19.2. We will repeat that in the morning and most likely give him some blood. Sodium is 136, potassium 4.8, chloride 106, BUN is 25, creatinine 1.34. Point of care sugar was 171 and 148. Liver enzymes are normal at 17 and 14. PHYSICAL EXAMINATION: GENERAL: This is a well-developed, well-nourished, very pleasant white male in no apparent distress. He knows who he is and he is oriented that he is in the hospital, but he does not know the time. HEENT: Reveals normocephalic, nontraumatic cranium. Nose and throat are somewhat dry. Patient is b aracely, he can see images but that is about it. NECK: Supple, without masses, nodes, or bruits. CHEST: Clear to auscultation. No rales, no rhonchi, no wheezes are heard. The patient does not hav e a cough. CARDIOVASCULAR: Reveals a regular rate and rhythm. At this time, the patient is known to have paroxy smal atrial fibrillation. ABDOMEN: Soft, nontender, without organomegaly, normal bowel sounds are noted. No rebound or guardi ng is noted. : Deferred. EXTREMITIES: Reveal no clubbing, cyanosis or edema. The patient's right arm is in a sling and still swollen, bruised and the patient right hip is in bed but not surgically treated and has no significa nt swelling, no redness. ASSESSMENT: 1. Right proximal humeral fracture. 2. Right acetabular fracture. 3. Extraperitoneal hematoma. 4. Diabetes type 2, which is fair. 5. Hypertension. 6. Hyperlipidemia. 7. Paroxysmal atrial fibrillation. 8. Chronic kidney disease. 9. Generalized weakness. 10. Blindness. 11. Peptic ulcer disease. 12. Deep venous thrombosis in the past and has been on warfarin. 13. Chronic anemia. PLAN: 1. Continue present medication. 2. Encourage the patient to keep his arm in the sling and nonweightbearing and toe touch on the righ t hip. 3. Stress ulcer prophylaxis. 4. Decubitus precautions. 5. Physical therapy and occupational therapy.
[2017-07-08] MEDS ORDERED: Haloperidol Lactate 5 MG/ML VIAL IM SCH (22:00)
[2017-07-09] MEDS: traMADol HCl 50 MG TAB PO SCH ×4 (05:53→21:15)
[2017-07-09] MEDS: Acetaminophen 500 MG TAB PO SCH ×4 (05:55→23:45)
[2017-07-09] MEDS: Bisacodyl 10 MG SUPP PR SCH ×3 (05:56→21:15)
[2017-07-09] MEDS: Furosemide 40 MG TAB PO SCH ×2 (05:56→16:45)
[2017-07-09] MEDS: Glimepiride 2 MG TAB PO SCH (08:45)
[2017-07-09] MEDS: Potassium Chloride 20 MEQ TAB PO SCH ×2 (08:46→21:40)
[2017-07-09] MEDS: Folic Acid 1 MG TAB PO SCH (08:46)
[2017-07-09] MEDS: Finasteride 5 MG TAB PO SCH (08:46)
[2017-07-09] MEDS: Famotidine 20 MG TAB PO SCH (08:46)
[2017-07-09] MEDS: Ferrous Sulfate 325 MG TAB PO SCH ×2 (08:47→16:47)
[2017-07-09] MEDS: Timolol 0.5% Ophth Soln 5 ml Bottle EA EYE SCH ×2 (08:47→21:40)
[2017-07-09] MEDS: Carvedilol 25 MG TAB PO SCH ×2 (08:47→21:40)
[2017-07-09] MEDS: Magnesium Oxide 400 MG TAB PO SCH ×2 (08:47→21:41)
[2017-07-09] MEDS: Senokot S 8.6-50 MG TAB PO SCH ×2 (08:48→21:14)
[2017-07-09] MEDS: Ascorbic Acid 500 mg Chewable Tablet PO SCH ×3 (08:48→21:13)
[2017-07-09] MEDS: Polyethylene Glycol 3350 17 GM Packet PO SCH (08:48)
[2017-07-09 14:07] LABS: Hemoglobin 6.9 g/dL (14.0-18.0)
[2017-07-09] MEDS ORDERED: Furosemide 20 MG/2 ML VIAL SLOW IVP SCH (15:30)
--- NOTE | 2017-07-09 19:45 | PRG ---
DATE OF SERVICE: 07/09/2017 HISTORY OF PRESENT ILLNESS: Mr. Harrington is a very pleasant 86-year-old white male. Unfortunately, he tripped in his house and landed on his right side with resultant right humeral head fracture and r ight acetabular fracture. He was seen acutely by Dr. Martniez at [facility] who recommende d nonoperative conservative therapy. The patient was eventually stabilized and then has been transfe rred to [facility] for physical therapy and occupational therapy. He is here to foll ow his other multiple medical problems also. SUBJECTIVE: The patient states again he had a bad day, but cannot elaborate on that. He is confused and talks about going up and down ladders all the time. He has no complaints of pain. His and [id number] came in and spent some time with them and they requested that we will no t give him his tramadol, just Tylenol because it tends to make him confused. We will abide by that. Patient states he is not hurting very much and is doing well. He is only eating fair. PHYSICAL EXAMINATION: OBJECTIVE: Vital signs reveal blood pressure this morning 136/68, pulse 86-91 respirations 18-22, O2 sat 93-95%. T-max is 98.8. GENERAL: This is a well-developed, well-nourished, oriented x1 white male in no apparent distress at this time. HEENT: Reveals normocephalic, nontraumatic cranium. Pupils are equally round and reactive. Extraoc ular movements intact. Nose and throat are slightly dry. NECK: Supple, without masses, nodes or bruits. LUNGS: Chest is clear to auscultation. No cough is noted. No rales, no rhonchi, no wheezes are hea rd. HEART: Reveals a regular rate and rhythm. We do know that the patient has a history of paroxysmal a trial fibrillation. ABDOMEN: Soft, nontender, without organomegaly. Normal bowel sounds are heard in all 4 quadrants. No rebound or guarding is noted. : Deferred. EXTREMITIES: Reveal no clubbing, cyanosis or edema. The patient's right arm is still in a sling and still somewhat swollen and bruised. The patient's right hip is not painful, we will not turn him ov er at this time. ASSESSMENT: 1. Right proximal humeral fracture. 2. Right acetabular fracture. 3. Extraperitoneal hematoma. 4. Hypertension. 5. Diabetes type 2, under good control. 6. Hyperlipidemia. 7. Paroxysmal atrial fibrillation. 8. Chronic kidney disease. 9. Generalized weakness. 10. Blindness. 11. Peptic ulcer disease. 12. Deep venous thrombosis in the past and has been on warfarin. 13. Chronic anemia. 14. Generalized weakness. PLAN: 1. Continue present medication. 2. Encourage the patient to stay in bed, keep his arm in a sling and be nonweightbearing with toe to uch on the right hip. 3. Stress ulcer prophylaxis. 4. Decubitus precautions. 5. Deep venous thrombosis prophylaxis. 6. Physical therapy and occupational therapy. 7. Supportive care.
[2017-07-09] MEDS: Latanoprost 0.005% Ophth Soln 2.5 ml Bottle EA EYE SCH (21:40)
[2017-07-09] MEDS: Terazosin HCl 1 MG CAP PO SCH (21:41)
[2017-07-10] MEDS: traMADol HCl 50 MG TAB PO SCH ×4 (04:48→21:14)
[2017-07-10] MEDS: Acetaminophen 500 MG TAB PO SCH ×3 (06:06→17:37)
[2017-07-10] MEDS: Furosemide 40 MG TAB PO SCH ×2 (06:06→13:42)
[2017-07-10] MEDS: Bisacodyl 10 MG SUPP PR SCH ×3 (06:07→21:14)
[2017-07-10] MEDS: Ferrous Sulfate 325 MG TAB PO SCH ×2 (08:35→17:37)
[2017-07-10] MEDS: Glimepiride 2 MG TAB PO SCH (08:36)
[2017-07-10] MEDS: Ascorbic Acid 500 mg Chewable Tablet PO SCH ×2 (08:37→21:11)
[2017-07-10] MEDS: Carvedilol 25 MG TAB PO SCH ×2 (08:37→21:11)
[2017-07-10] MEDS: Famotidine 20 MG TAB PO SCH (08:37)
[2017-07-10] MEDS: Finasteride 5 MG TAB PO SCH (08:37)
[2017-07-10] MEDS: Magnesium Oxide 400 MG TAB PO SCH ×2 (08:38→21:11)
[2017-07-10] MEDS: Senokot S 8.6-50 MG TAB PO SCH ×2 (08:39→21:13)
[2017-07-10] MEDS: Polyethylene Glycol 3350 17 GM Packet PO SCH (08:39)
[2017-07-10] MEDS: Potassium Chloride 20 MEQ TAB PO SCH ×2 (08:39→21:11)
[2017-07-10] MEDS: Timolol 0.5% Ophth Soln 5 ml Bottle EA EYE SCH ×2 (08:40→21:13)
[2017-07-10] MEDS: Folic Acid 1 MG TAB PO SCH (08:44)
--- NOTE | 2017-07-10 16:48 | PRG ---
DATE OF SERVICE: 07/10/2017 DATE OF ADMISSION: 07/07/2017 HISTORY OF PRESENT ILLNESS: Mr. Harrington is a very pleasant 86-year-old white male that unfortunatel y fell with a resultant right humeral head fracture and a right acetabular fracture. He was seen by Dr. Martinez, who recommended nonoperative therapy. The patient was eventually transferred to [facility] for pain management, physical therapy, occupational therapy, and his other [facility] medical problems. The patient states he had a much better day today. He is oriented to person and place. He did have a couple units of packed red blood cells yesterday and states he feels much better. OBJECTIVE: Vital signs this morning reveal blood pressure was 132/65, pulse 79-87, respirations 18-2 0, O2 sat 93%-95% on room air, temperature max 98.5. Point of care sugars, the blood sugar fasting this morning 124, before lunch 146, before supper 129. PHYSICAL EXAMINATION: GENERAL: This is a well-developed, well-nourished, slightly obese white male, in no apparent distres s at this time. HEENT: Reveals normocephalic, nontraumatic cranium. Pupils are equally round and reactive. Extraoc ular movements intact. Patient is blind in both eyes. Nose and throat are slightly dry. NECK: Supple, without masses, nodes, or bruits. LUNGS: Chest is clear to auscultation. No rales, no rhonchi, no wheezes are heard. No cough is not ed. HEART: Reveals a regular rate and rhythm. Patient has a history of paroxysmal atrial fibrillation. ABDOMEN: Soft, nontender, and without organomegaly. Somewhat obese. Bowel sounds are normal. No r ebound or guarding is noted. : Exam is deferred. EXTREMITIES: Reveal no clubbing, cyanosis, or edema. The patient's right arm is still in a sling, l ess swelling, still bruised. The patient's right hip is not as painful. The patient states he feels much better. IMPRESSION: 1. Right proximal humeral fracture. 2. Right acetabular fracture. 3. Extraperitoneal hematoma. 4. Hypertension. 5. Diabetes. 6. Hyperlipidemia. 7. Paroxysmal atrial fibrillation. 8. Chronic kidney disease. 9. Generalized weakness. 10. Blind. 11. Peptic ulcer disease. 12. Deep venous thrombosis in the past and has been on warfarin in the past. 13. Chronic anemia. 14. Generalized weakness. PLAN: 1. Continue present medication. 2. Encouraged the patient to stay in bed and keep his arm in a sling and nonweightbearing and toe to uch on the right. 3. Stress ulcer prophylaxis. 4. Decubitus precautions. 5. Deep venous thrombosis prophylaxis. 6. Physical therapy and occupational therapy. 7. Supportive care.
[2017-07-10] MEDS: Terazosin HCl 1 MG CAP PO SCH (21:11)
[2017-07-10] MEDS: Latanoprost 0.005% Ophth Soln 2.5 ml Bottle EA EYE SCH (21:13)
[2017-07-11] MEDS: Acetaminophen 500 MG TAB PO SCH ×5 (00:34→23:04)
[2017-07-11] MEDS: traMADol HCl 50 MG TAB PO SCH ×4 (03:34→20:41)
[2017-07-11 05:39] LABS: #Basophils 0.1 thou/uL (0.0-0.2); #Eosinphils 0.3 thou/uL (0.0-0.7); #Lymphocytes 2.3 thou/uL (1.20-3.40); #Monocytes 1.9 thou/uL (0.11-0.59); #Neutrophils 8.3 thou/uL (1.40-6.50); %Basophils 0.7 % (0.0-1.0); %Eosinophils 2.5 % (0.0-10.0); %Lymphocytes 17.8 % (21.0-51.0); %Monocytes 14.9 % (0.0-10.0); %Neutrophils 64.1 % (42.0-75.0); Mean Corpuscular HGB CONC 33.2 g/dL (32.0-36.0); Mean Corpuscular Hemoglobin 31.9 pg (27.0-31.0); Mean Corpuscular Volume 96.1 fl (80.0-94.0); Mean Platelet Volume 9.7 fL (7.4-10.4); Platelet Count 285 thou/uL (130-400); RBC Distribution Width 13.9 % (11.5-14.5); Red Blood Cell (RBC) Count 3.14 mill/uL (4.70-6.10)
[2017-07-11] MEDS: Furosemide 40 MG TAB PO SCH ×2 (05:47→14:54)
[2017-07-11] MEDS: Bisacodyl 10 MG SUPP PR SCH ×3 (05:48→20:41)
[2017-07-11 05:52] LABS: ALT (SGPT) 13 U/L (8-55); AST (SGOT) 19 U/L (5-34); Albumin 3.4 g/dL (3.4-4.8); Alkaline Phosphatase 53 U/L (40-150); Anion Gap 15 mmol/L (10-20); BUN (Urea Nitrogen) 46 mg/dL (8.4-25.7); Bilirubin, Total 1.3 mg/dL (0.2-1.2); Calc. Creatinine Clearance 41 mL/min (70-130); Calcium 8.7 mg/dL (7.8-10.44); Carbon Dioxide 24 mmol/L (23-31); Chloride 102 mmol/L (98-107); Estimated GFR-MDRD 38; Globulin 3.6 g/dL (2.4-3.5); Glucose 123 mg/dL (83-110); Potassium 5.3 mmol/L (3.5-5.1); Sodium 136 mmol/L (136-145)
[2017-07-11] MEDS: Ferrous Sulfate 325 MG TAB PO SCH ×2 (08:20→17:34)
[2017-07-11] MEDS: Glimepiride 2 MG TAB PO SCH (08:20)
[2017-07-11] MEDS: Ascorbic Acid 500 mg Chewable Tablet PO SCH ×2 (08:20→20:40)
[2017-07-11] MEDS: Magnesium Oxide 400 MG TAB PO SCH ×2 (08:21→20:40)
[2017-07-11] MEDS: Carvedilol 25 MG TAB PO SCH ×2 (08:21→20:40)
[2017-07-11] MEDS: Potassium Chloride 20 MEQ TAB PO SCH ×2 (08:22→20:40)
[2017-07-11] MEDS: Polyethylene Glycol 3350 17 GM Packet PO SCH (08:22)
[2017-07-11] MEDS: Famotidine 20 MG TAB PO SCH (08:22)
[2017-07-11] MEDS: Folic Acid 1 MG TAB PO SCH (08:22)
[2017-07-11] MEDS: Finasteride 5 MG TAB PO SCH (08:22)
[2017-07-11] MEDS: Senokot S 8.6-50 MG TAB PO SCH ×2 (08:23→20:41)
[2017-07-11] MEDS: Timolol 0.5% Ophth Soln 5 ml Bottle EA EYE SCH ×2 (08:23→20:42)
--- NOTE | 2017-07-11 13:33 | PRG ---
DATE OF SERVICE: 07/11/2017 SUBJECTIVE: Mr. Harrington is doing well. Denies any complaints, resting comfortably. He states that he feels much better after the blood transfusion. He states his pain is controlled. No family at [facility]. OBJECTIVE: VITAL SIGNS: He is afebrile, heart rate 86, respirations 18, oxygen saturation 96%, blood pressure 1 32/64. CARDIOVASCULAR: S1, S2 plus. RESPIRATORY: Normal vesicular breath sounds. ABDOMEN: Soft, nontender, bowel sounds heard in all quadrants. EXTREMITIES: Without cyanosis or clubbing. Right arm in a sling. IMPRESSION: 1. Anemia requiring blood transfusion. 2. History of atrial fibrillation. 3. Status post fall and right proximal humeral fracture and right acetabular fracture, both are bein g managed conservatively. 4. Diabetes mellitus type 2. 5. Dyslipidemia. 6. Hypertension. 7. Legally blind. 8. Chronic kidney disease. PLAN: 1. Continue current medications. 2. Nutritional support. 3. Orthopedic precautions. 4. DVT and stress ulcer prophylaxis. 5. Decubitus precautions. 6. Routine laboratory values. 7. No family at bedside. 8. Discussed with patient in detail and all questions answered.
[2017-07-11] MEDS: Terazosin HCl 1 MG CAP PO SCH (20:40)
[2017-07-11] MEDS: Latanoprost 0.005% Ophth Soln 2.5 ml Bottle EA EYE SCH (20:42)
[2017-07-12] MEDS: traMADol HCl 50 MG TAB PO SCH ×4 (00:08→20:26)
[2017-07-12] MEDS: Furosemide 40 MG TAB PO SCH ×2 (05:38→15:29)
[2017-07-12] MEDS: Bisacodyl 10 MG SUPP PR SCH ×3 (05:38→20:26)
[2017-07-12] MEDS: Acetaminophen 500 MG TAB PO SCH ×3 (05:38→17:52)
[2017-07-12] MEDS: Folic Acid 1 MG TAB PO SCH (09:16)
[2017-07-12] MEDS: Finasteride 5 MG TAB PO SCH (09:16)
[2017-07-12] MEDS: Carvedilol 25 MG TAB PO SCH ×2 (09:16→20:24)
[2017-07-12] MEDS: Famotidine 20 MG TAB PO SCH (09:16)
[2017-07-12] MEDS: Ferrous Sulfate 325 MG TAB PO SCH ×2 (09:16→17:52)
[2017-07-12] MEDS: Magnesium Oxide 400 MG TAB PO SCH (09:16)
[2017-07-12] MEDS: Ascorbic Acid 500 mg Chewable Tablet PO SCH ×2 (09:16→20:24)
[2017-07-12] MEDS: Glimepiride 2 MG TAB PO SCH (09:17)
[2017-07-12] MEDS: Timolol 0.5% Ophth Soln 5 ml Bottle EA EYE SCH ×2 (09:18→20:24)
[2017-07-12] MEDS: Polyethylene Glycol 3350 17 GM Packet PO SCH (09:19)
[2017-07-12] MEDS: Potassium Chloride 20 MEQ TAB PO SCH ×2 (09:19→20:24)
[2017-07-12] MEDS: Senokot S 8.6-50 MG TAB PO SCH (09:19)
--- NOTE | 2017-07-12 12:50 | PRG ---
DATE OF SERVICE: 07/12/2017 SUBJECTIVE: Mr. Harrington is doing the same. He is having diarrhea, but denies any fever or chills. Discussed with nursing and he apparently has had diarrhea since admission, 3-4 episodes. They have not been giving him any Senokot or any stool softener. No other concerns or questions. No family at bedside. OBJECTIVE: VITAL SIGNS: He is afebrile, heart rate 94, respirations 20, oxygen saturation 94%, blood pressure 1 33/64. CARDIOVASCULAR: S1, S2 plus. RESPIRATORY: Normal vesicular breath sounds. ABDOMEN: Soft, nontender, bowel sounds heard in all quadrants. EXTREMITIES: Without cyanosis or clubbing. Right arm in a sling. IMPRESSION: 1. Status post fall and right acetabular fracture as well as a right humerus fracture, both being tr eated conservatively. 2. Significant anemia, much improved status post 2 units of blood transfusion. 3. Diarrhea of unknown etiology. 4. Diabetes mellitus type 2. 5. Hypertension. 6. Paroxysmal atrial fibrillation. 7. Legally blind. 8. Dysphagia, on pureed diet. PLAN: 1. Advised nurses to move him up closer to the nurse's station. 2. Stool for C. diff. 3. Imodium q.6 h. p.r.n. after stool for C. diff is sent out. 4. Stop all stool softeners. 5. Start him on probiotics. 6. Recheck laboratories in the morning. 7. Orthopedic precautions. 8. No family at bedside.
[2017-07-12] MEDS: Terazosin HCl 1 MG CAP PO SCH (20:24)
[2017-07-12] MEDS: Latanoprost 0.005% Ophth Soln 2.5 ml Bottle EA EYE SCH (20:25)
[2017-07-13] MEDS: Acetaminophen 500 MG TAB PO SCH ×4 (00:15→17:10)
[2017-07-13] MEDS: traMADol HCl 50 MG TAB PO SCH ×4 (03:28→21:40)
[2017-07-13 05:15] LABS: #Basophils 0.2 thou/uL (0.0-0.2); #Eosinphils 0.1 thou/uL (0.0-0.7); #Monocytes 2.2 thou/uL (0.11-0.59); #Neutrophils 12.9 thou/uL (1.40-6.50); %Basophils 0.8 % (0.0-1.0); %Eosinophils 0.5 % (0.0-10.0); %Lymphocytes 16.2 % (21.0-51.0); %Monocytes 12.2 % (0.0-10.0); %Neutrophils 70.3 % (42.0-75.0); Hemoglobin 10.8 g/dL (14.0-18.0); Mean Corpuscular HGB CONC 32.7 g/dL (32.0-36.0); Mean Corpuscular Hemoglobin 31.4 pg (27.0-31.0); Mean Corpuscular Volume 96.2 fl (80.0-94.0); Mean Platelet Volume 8.9 fL (7.4-10.4); Platelet Count 410 thou/uL (130-400); RBC Distribution Width 13.1 % (11.5-14.5); Red Blood Cell (RBC) Count 3.44 mill/uL (4.70-6.10); White Blood Cell (WBC) Count 18.4 thou/uL (4.8-10.8)
[2017-07-13 05:32] LABS: Anion Gap 17 mmol/L (10-20)
[2017-07-13] MEDS: Furosemide 40 MG TAB PO SCH (05:39)
[2017-07-13] MEDS: Bisacodyl 10 MG SUPP PR SCH ×3 (05:40→21:43)
[2017-07-13 05:43] LABS: BUN (Urea Nitrogen) 74 mg/dL (8.4-25.7); Calc. Creatinine Clearance 26 mL/min (70-130); Carbon Dioxide 24 mmol/L (23-31); Chloride 101 mmol/L (98-107); Estimated GFR-MDRD 22; Glucose 117 mg/dL (83-110); Potassium 6.3 mmol/L (3.5-5.1); Sodium 136 mmol/L (136-145)
[2017-07-13] MEDS: Ferrous Sulfate 325 MG TAB PO SCH ×2 (09:27→17:15)
[2017-07-13] MEDS: Potassium Chloride 20 MEQ TAB PO SCH (09:27)
[2017-07-13] MEDS: Saccharomyces boulardii 250 MG CAP PO SCH (09:27)
[2017-07-13] MEDS: Famotidine 20 MG TAB PO SCH (09:28)
[2017-07-13] MEDS: Ascorbic Acid 500 mg Chewable Tablet PO SCH ×2 (09:28→21:41)
[2017-07-13] MEDS: Finasteride 5 MG TAB PO SCH (09:28)
[2017-07-13] MEDS: Carvedilol 25 MG TAB PO SCH ×2 (09:28→21:47)
[2017-07-13] MEDS: Folic Acid 1 MG TAB PO SCH (09:28)
[2017-07-13] MEDS: Glimepiride 2 MG TAB PO SCH (09:28)
[2017-07-13] MEDS: Timolol 0.5% Ophth Soln 5 ml Bottle EA EYE SCH ×2 (09:29→21:46)
[2017-07-13] MEDS: Sodium Chloride 0.9% 1,000 ML IV SCH (13:00)
--- NOTE | 2017-07-13 13:07 | PRG ---
DATE OF SERVICE: 07/13/2017 SUBJECTIVE: Mr. Harrington is doing well. He is up in his chair. He is still not eating well. No fe abimael or chills. He had one episode of loose stool this morning, but otherwise he states that his diar oumar is better. Discussed with nursing and no concerns. OBJECTIVE: VITAL SIGNS: He is afebrile, heart rate 86, respirations 18, oxygen saturation 96%, blood pressure w as 94/56 this morning. CARDIOVASCULAR SYSTEM: S1 and S2 plus. RESPIRATORY SYSTEM: Normal vesicular breath sounds. ABDOMEN: Soft, nontender, bowel sounds heard in all quadrants. EXTREMITIES: Without cyanosis or clubbing. CENTRAL NERVOUS SYSTEM: Generalized weakness. LABORATORY DATA: Stool for Clostridium difficile is negative. Sodium 136, potassium was elevated at 6.3, BUN and creatinine 74 and 2.71, it was 46 and 1.73 two days ago. Blood sugars are 139, 179, 11 7, 145, and 184. White count is 18.4, it was 13 on 07/11/2017, hemoglobin and hematocrit is 10.8 and 33.1, platelet count is 410. No bandemia. IMPRESSION: 1. Leukocytosis. 2. Acute renal failure likely secondary to dehydration. 3. Hyperkalemia secondary to probably not drinking enough water and increased potassium supplementat ion. 4. Improving diarrhea. 5. Improving deconditioning. 6. Recent fall with right hip fracture and right humerus fracture. PLAN: 1. Stop Lasix and potassium. 2. Nepro supplement t.i.d. 3. Encourage p.o. intake. 4. Normal saline at 70 mL an hour. 5. Recheck laboratory values in the morning, BMP and CBC. 6. Check chest x-ray, blood cultures and urine cultures now. 7. No family at bedside. 8. Discussed with nursing in detail and all questions answered.
[2017-07-13] MEDS: Terazosin HCl 1 MG CAP PO SCH (21:40)
[2017-07-13] MEDS: Latanoprost 0.005% Ophth Soln 2.5 ml Bottle EA EYE SCH (21:42)
[2017-07-14] MEDS: Acetaminophen 500 MG TAB PO SCH ×4 (00:06→17:52)
[2017-07-14] MEDS: Sodium Chloride 0.9% 1,000 ML IV SCH ×2 (02:46→17:53)
[2017-07-14] MEDS: traMADol HCl 50 MG TAB PO SCH ×4 (02:46→22:11)
[2017-07-14 05:08] LABS: #Basophils 0.1 thou/uL (0.0-0.2); #Eosinphils 0.2 thou/uL (0.0-0.7); #Lymphocytes 2.6 thou/uL (1.20-3.40); #Monocytes 2.2 thou/uL (0.11-0.59); #Neutrophils 11.1 thou/uL (1.40-6.50); %Basophils 0.4 % (0.0-1.0); %Eosinophils 1.3 % (0.0-10.0); %Lymphocytes 16.3 % (21.0-51.0); %Monocytes 13.3 % (0.0-10.0); %Neutrophils 68.7 % (42.0-75.0); Hemoglobin 9.8 g/dL (14.0-18.0); Mean Corpuscular HGB CONC 32.4 g/dL (32.0-36.0); Mean Corpuscular Hemoglobin 31.3 pg (27.0-31.0); Mean Corpuscular Volume 96.6 fl (80.0-94.0); Mean Platelet Volume 8.9 fL (7.4-10.4); Platelet Count 390 thou/uL (130-400); RBC Distribution Width 13.7 % (11.5-14.5); Red Blood Cell (RBC) Count 3.12 mill/uL (4.70-6.10); White Blood Cell (WBC) Count 16.2 thou/uL (4.8-10.8)
[2017-07-14 05:11] LABS: Manual Diff?? NO
[2017-07-14] MEDS: Bisacodyl 10 MG SUPP PR SCH ×3 (05:23→22:16)
[2017-07-14 05:24] LABS: Anion Gap 15 mmol/L (10-20); BUN (Urea Nitrogen) 83 mg/dL (8.4-25.7); Calc. Creatinine Clearance 24 mL/min (70-130); Calcium 8.7 mg/dL (7.8-10.44); Carbon Dioxide 23 mmol/L (23-31); Chloride 105 mmol/L (98-107); Estimated GFR-MDRD 21; Glucose 80 mg/dL (83-110); Potassium 5.2 mmol/L (3.5-5.1); Sodium 138 mmol/L (136-145)
--- NOTE | 2017-07-14 08:37 | PRG ---
DATE OF SERVICE: 07/14/2017 SUBJECTIVE: Mr. Harrington is doing well. His diarrhea has resolved. He feels better. He denies any chest pain or shortness of breath. I advised him to make sure he drinks at least the Nepro 3 times a day and encourage p.o. intake. Discussed with nursing and no concerns. OBJECTIVE: VITAL SIGNS: He is afebrile, heart rate is 63, respirations 18, oxygen saturation 99%, blood pressur e is 109/60. CARDIOVASCULAR: S1, S2 plus. RESPIRATORY: Normal vesicular breath sounds. ABDOMEN: Soft, nontender, bowel sounds heard in all quadrants. EXTREMITIES: Without cyanosis or clubbing. Right arm in a sling. Trace edema, right leg. LABORATORY VALUES: White count is down to 16.2, H&H is stable at 9.8 and 30.1. Sodium 138, potassiu m is improved to 5.2, BUN and creatinine is 83 and 2.9, slightly worse than yesterday. Blood sugars are 184, 145, 161. IMPRESSION: 1. Acute renal failure likely secondary to a combination of over diuresis and decreased p.o. intake along with his diarrhea. 2. Hypokalemia, improving with IV hydration. 3. Status post fall and right humerus and right acetabular fracture. 4. Diabetes mellitus type 2. 5. Resolved diarrhea. 6. Chronic kidney disease stage 3. 7. Coronary artery disease. 8. Chronic systolic congestive heart failure. 9. Paroxysmal atrial fibrillation. He has been off anticoagulation secondary to gastrointestinal bl eeding. PLAN: 1. Continue IV fluids. 2. Encourage p.o. intake. 3. Daily laboratory values. 4. Physical therapy with orthopedic precautions. 5. Decubitus precautions. 6. Nutritional support. 7. No family at bedside. 8. I discussed with the patient and the nursing in detail and all questions answered.
[2017-07-14] MEDS: Timolol 0.5% Ophth Soln 5 ml Bottle EA EYE SCH ×2 (08:44→22:10)
[2017-07-14] MEDS: Saccharomyces boulardii 250 MG CAP PO SCH (08:45)
[2017-07-14] MEDS: Finasteride 5 MG TAB PO SCH (08:45)
[2017-07-14] MEDS: Glimepiride 2 MG TAB PO SCH (08:46)
[2017-07-14] MEDS: Carvedilol 25 MG TAB PO SCH ×2 (08:47→22:11)
[2017-07-14] MEDS: Ferrous Sulfate 325 MG TAB PO SCH ×2 (08:47→17:52)
[2017-07-14] MEDS: Folic Acid 1 MG TAB PO SCH (08:47)
[2017-07-14] MEDS: Famotidine 20 MG TAB PO SCH (08:47)
[2017-07-14] MEDS: Ascorbic Acid 500 mg Chewable Tablet PO SCH ×2 (08:49→22:11)
[2017-07-14] MEDS: Latanoprost 0.005% Ophth Soln 2.5 ml Bottle EA EYE SCH (22:10)
[2017-07-14] MEDS: Terazosin HCl 1 MG CAP PO SCH (22:11)
[2017-07-15] MEDS: Acetaminophen 500 MG TAB PO SCH ×4 (01:03→17:13)
[2017-07-15 05:49] LABS: #Basophils 0.1 thou/uL (0.0-0.2); #Eosinphils 0.4 thou/uL (0.0-0.7); #Lymphocytes 2.6 thou/uL (1.20-3.40); #Monocytes 1.5 thou/uL (0.11-0.59); #Neutrophils 9.6 thou/uL (1.40-6.50); %Basophils 0.5 % (0.0-1.0); %Eosinophils 2.6 % (0.0-10.0); %Lymphocytes 18.3 % (21.0-51.0); %Monocytes 10.5 % (0.0-10.0); %Neutrophils 68.1 % (42.0-75.0); Hemoglobin 8.8 g/dL (14.0-18.0); Mean Corpuscular HGB CONC 32.2 g/dL (32.0-36.0); Mean Corpuscular Hemoglobin 31.4 pg (27.0-31.0); Mean Corpuscular Volume 97.5 fl (80.0-94.0); Mean Platelet Volume 8.9 fL (7.4-10.4); Platelet Count 370 thou/uL (130-400); RBC Distribution Width 13.4 % (11.5-14.5); Red Blood Cell (RBC) Count 2.81 mill/uL (4.70-6.10); White Blood Cell (WBC) Count 14.1 thou/uL (4.8-10.8)
[2017-07-15 06:00] LABS: Anion Gap 13 mmol/L (10-20); BUN (Urea Nitrogen) 60 mg/dL (8.4-25.7); Calc. Creatinine Clearance 37 mL/min (70-130); Calcium 8.2 mg/dL (7.8-10.44); Carbon Dioxide 22 mmol/L (23-31); Chloride 107 mmol/L (98-107); Estimated GFR-MDRD 34; Glucose 68 mg/dL (83-110); Potassium 4.5 mmol/L (3.5-5.1); Sodium 137 mmol/L (136-145)
[2017-07-15] MEDS: traMADol HCl 50 MG TAB PO SCH ×4 (06:04→21:19)
[2017-07-15] MEDS: Bisacodyl 10 MG SUPP PR SCH ×3 (06:07→21:30)
[2017-07-15] MEDS: Sodium Chloride 0.9% 1,000 ML IV SCH ×2 (08:25→21:30)
[2017-07-15] MEDS: Finasteride 5 MG TAB PO SCH (08:26)
[2017-07-15] MEDS: Saccharomyces boulardii 250 MG CAP PO SCH (08:26)
[2017-07-15] MEDS: Folic Acid 1 MG TAB PO SCH (08:27)
[2017-07-15] MEDS: Ferrous Sulfate 325 MG TAB PO SCH ×2 (08:27→17:13)
[2017-07-15] MEDS: Ascorbic Acid 500 mg Chewable Tablet PO SCH ×2 (08:27→21:19)
[2017-07-15] MEDS: Carvedilol 25 MG TAB PO SCH ×2 (08:27→21:20)
[2017-07-15] MEDS: Famotidine 20 MG TAB PO SCH (08:27)
[2017-07-15] MEDS: Glimepiride 2 MG TAB PO SCH (08:27)
[2017-07-15] MEDS: Timolol 0.5% Ophth Soln 5 ml Bottle EA EYE SCH ×2 (08:28→21:19)
--- NOTE | 2017-07-15 16:32 | PRG ---
DATE OF SERVICE: 07/15/2017 SUBJECTIVE: Ms. Harrington is doing well. Denies any complaints, resting comfortably. Diarrhea has r esolved, tolerating his diet. Pain is well controlled. OBJECTIVE: VITAL SIGNS: He is afebrile, heart rate 69, respirations 16, oxygen saturation 99%, blood pressure 1 09/55. CARDIOVASCULAR SYSTEM: S1, S2 plus. RESPIRATORY SYSTEM: Normal vesicular breath sounds. ABDOMEN: Soft, nontender, bowel sounds heard in all quadrants. EXTREMITIES: Without cyanosis or clubbing. Contusion in the right shoulder area from his fall. LABORATORY DATA: White count is down to 14.1, hemoglobin and hematocrit is 8.8 and 27.4. Chemistry shows sodium 137, potassium is down to normal at 4.5, BUN and creatinine is down from 83 and 2.92 to 60 and 1.89. IMPRESSION: 1. Improving renal insufficiency. 2. Resolved hypokalemia. 3. Improving leukocytosis. 4. Recent fall resulting in right humerus and right acetabular fracture. 5. Diabetes mellitus type 2. 6. Paroxysmal atrial fibrillation. 7. Coronary artery disease and chronic systolic congestive heart failure. 8. Anemia requiring blood transfusion. PLAN: 1. Continue current medications. 2. Nutritional support. 3. DVT and stress ulcer prophylaxis. 4. Decubitus precautions. 5. Routine laboratory values. 6. Orthopedic precautions. 7. Discussed with the patient in detail. No family at bedside.
[2017-07-15] MEDS: Latanoprost 0.005% Ophth Soln 2.5 ml Bottle EA EYE SCH (21:18)
[2017-07-15] MEDS: Terazosin HCl 1 MG CAP PO SCH (21:20)
[2017-07-15] MEDS ORDERED: Nitrofurantoin Macrocrystal 50 MG CAP PO SCH (21:30)
[2017-07-16] MEDS: Acetaminophen 500 MG TAB PO SCH ×4 (00:28→17:53)
[2017-07-16] MEDS: traMADol HCl 50 MG TAB PO SCH ×4 (02:48→20:53)
[2017-07-16 05:35] LABS: #Basophils 0.1 thou/uL (0.0-0.2); #Eosinphils 0.2 thou/uL (0.0-0.7); #Lymphocytes 2.4 thou/uL (1.20-3.40); #Monocytes 1.4 thou/uL (0.11-0.59); #Neutrophils 8.6 thou/uL (1.40-6.50); %Basophils 0.6 % (0.0-1.0); %Eosinophils 1.4 % (0.0-10.0); %Lymphocytes 19.1 % (21.0-51.0); %Monocytes 10.7 % (0.0-10.0); %Neutrophils 68.3 % (42.0-75.0); Hemoglobin 8.8 g/dL (14.0-18.0); Mean Corpuscular Hemoglobin 31.2 pg (27.0-31.0); Mean Corpuscular Volume 97.5 fl (80.0-94.0); Platelet Count 366 thou/uL (130-400); RBC Distribution Width 13.5 % (11.5-14.5); Red Blood Cell (RBC) Count 2.83 mill/uL (4.70-6.10); White Blood Cell (WBC) Count 12.6 thou/uL (4.8-10.8)
[2017-07-16 05:54] LABS: Anion Gap 13 mmol/L (10-20); BUN (Urea Nitrogen) 39 mg/dL (8.4-25.7); Calc. Creatinine Clearance 50 mL/min (70-130); Calcium 8.2 mg/dL (7.8-10.44); Carbon Dioxide 20 mmol/L (23-31); Chloride 110 mmol/L (98-107); Estimated GFR-MDRD 48; Glucose 92 mg/dL (83-110); Potassium 4.5 mmol/L (3.5-5.1); Sodium 138 mmol/L (136-145)
[2017-07-16] MEDS: Bisacodyl 10 MG SUPP PR SCH ×3 (06:09→21:05)
[2017-07-16] MEDS: Famotidine 20 MG TAB PO SCH (10:40)
[2017-07-16] MEDS: Glimepiride 2 MG TAB PO SCH (10:41)
[2017-07-16] MEDS: Ascorbic Acid 500 mg Chewable Tablet PO SCH ×2 (10:41→20:52)
[2017-07-16] MEDS: Folic Acid 1 MG TAB PO SCH (10:41)
[2017-07-16] MEDS: Finasteride 5 MG TAB PO SCH (10:44)
[2017-07-16] MEDS: Ferrous Sulfate 325 MG TAB PO SCH ×2 (10:44→17:07)
[2017-07-16] MEDS: Nitrofurantoin Macrocrystal 50 MG CAP PO SCH ×4 (10:44→20:53)
[2017-07-16] MEDS: Carvedilol 25 MG TAB PO SCH ×2 (10:45→20:53)
[2017-07-16] MEDS: Saccharomyces boulardii 250 MG CAP PO SCH (10:45)
[2017-07-16] MEDS: Timolol 0.5% Ophth Soln 5 ml Bottle EA EYE SCH ×2 (10:49→20:52)
--- NOTE | 2017-07-16 11:48 | PRG ---
DATE OF SERVICE: 07/16/2017 SUBJECTIVE: Mr. Harrington is doing well. Denies any complaints, resting comfor tably, no family at bedside. OBJECTIVE: VITAL SIGNS: He is afebrile, heart rate 66, respirations 18, oxygen saturation 94%, blood pressure 1 40/64. CARDIOVASCULAR SYSTEM: S1, S2 plus. RESPIRATORY SYSTEM: Normal vesicular breath sounds. ABDOMEN: Soft, nontender, bowel sounds heard in all quadrants. EXTREMITIES: Without cyanosis or clubbing. Stable contusion right upper extremity from his fall. T race edema, lower extremities. LABORATORY VALUES: White count is down to 12.6, H and H is 8.8 and 27.6. Chemistry shows a sodium 1 38, potassium 4.5. BUN and creatinine is down to 39 and 1.4; it was 60 and 1.89 yesterday. Blood chen gars are 96, 77, 125. Urine culture is growing Enterococcus, 75,000 to 100,000 colonies, sensitive t o pretty much almost all antibiotics. IMPRESSION: 1. Possible Enterococcus urinary tract infection. 2. Resolving acute renal failure. 3. Diabetes mellitus, type 2. 4. Status post fall and right humerus and right acetabular fracture. 5. Coronary artery disease with chronic systolic congestive heart failure. 6. Chronic kidney disease, stage 2-3. 7. Paroxysmal atrial fibrillation. 8. Legally blind. PLAN: 1. Start nitrofurantoin 50 mg q.i.d., since he is on a pureed diet. 2. Continue IV fluids for 1 more day. 3. A 1800-calorie heart healthy ADA diet. 4. Physical therapy with orthopedic precautions. 5. Decubitus precautions. 6. Routine laboratory values. 7. I discussed with the patient in detail and all questions answered.
[2017-07-16] MEDS: Sodium Chloride 0.9% 1,000 ML IV SCH (12:51)
[2017-07-16] MEDS: Latanoprost 0.005% Ophth Soln 2.5 ml Bottle EA EYE SCH (20:52)
[2017-07-16] MEDS: Terazosin HCl 1 MG CAP PO SCH (20:53)
[2017-07-16] MEDS ORDERED: Haloperidol Lactate 5 MG/ML VIAL IM SCH (22:00)
[2017-07-17] MEDS: Acetaminophen 500 MG TAB PO SCH ×4 (01:20→16:58)
[2017-07-17] MEDS: Sodium Chloride 0.9% 1,000 ML IV SCH (02:24)
[2017-07-17] MEDS: traMADol HCl 50 MG TAB PO SCH ×4 (03:35→20:58)
[2017-07-17] MEDS: Bisacodyl 10 MG SUPP PR SCH ×3 (05:07→23:06)
[2017-07-17 05:24] LABS: #Basophils 0.1 thou/uL (0.0-0.2); #Eosinphils 0.1 thou/uL (0.0-0.7); #Lymphocytes 2.5 thou/uL (1.20-3.40); #Monocytes 1.6 thou/uL (0.11-0.59); #Neutrophils 10.7 thou/uL (1.40-6.50); %Eosinophils 0.8 % (0.0-10.0); %Lymphocytes 16.8 % (21.0-51.0); %Monocytes 10.8 % (0.0-10.0); %Neutrophils 70.7 % (42.0-75.0); Hemoglobin 10.3 g/dL (14.0-18.0); Mean Corpuscular HGB CONC 31.9 g/dL (32.0-36.0); Mean Corpuscular Hemoglobin 30.8 pg (27.0-31.0); Mean Corpuscular Volume 96.5 fl (80.0-94.0); Mean Platelet Volume 8.8 fL (7.4-10.4); Platelet Count 451 thou/uL (130-400); RBC Distribution Width 13.1 % (11.5-14.5); Red Blood Cell (RBC) Count 3.36 mill/uL (4.70-6.10); White Blood Cell (WBC) Count 15.1 thou/uL (4.8-10.8)
[2017-07-17 05:40] LABS: Anion Gap 16 mmol/L (10-20); BUN (Urea Nitrogen) 28 mg/dL (8.4-25.7); Calc. Creatinine Clearance 56 mL/min (70-130); Calcium 9.1 mg/dL (7.8-10.44); Carbon Dioxide 19 mmol/L (23-31); Chloride 111 mmol/L (98-107); Estimated GFR-MDRD 54; Glucose 108 mg/dL (83-110); Potassium 4.9 mmol/L (3.5-5.1); Sodium 141 mmol/L (136-145)
[2017-07-17] MEDS: Saccharomyces boulardii 250 MG CAP PO SCH (08:17)
[2017-07-17] MEDS: Glimepiride 2 MG TAB PO SCH (08:18)
[2017-07-17] MEDS: Famotidine 20 MG TAB PO SCH (08:18)
[2017-07-17] MEDS: Ascorbic Acid 500 mg Chewable Tablet PO SCH ×2 (08:18→20:57)
[2017-07-17] MEDS: Folic Acid 1 MG TAB PO SCH (08:19)
[2017-07-17] MEDS: Ferrous Sulfate 325 MG TAB PO SCH ×2 (08:19→17:04)
[2017-07-17] MEDS: Carvedilol 25 MG TAB PO SCH ×2 (08:19→20:58)
[2017-07-17] MEDS: Nitrofurantoin Macrocrystal 50 MG CAP PO SCH ×4 (08:19→20:57)
[2017-07-17] MEDS: Timolol 0.5% Ophth Soln 5 ml Bottle EA EYE SCH ×2 (08:20→20:57)
[2017-07-17] MEDS: Finasteride 5 MG TAB PO SCH (08:20)
--- NOTE | 2017-07-17 13:26 | PRG ---
DATE OF SERVICE: 07/17/2017 SUBJECTIVE: Mr. Harrington is doing well. Denies any complaints, resting comfortably, tolerating his medications. OBJECTIVE: VITAL SIGNS: He is afebrile, heart rate 99, respirations 21, oxygen saturation 97%, blood pressure 1 47/70. CARDIOVASCULAR: S1, S2 plus. RESPIRATORY: Normal vesicular breath sounds. ABDOMEN: Soft, nontender. Bowel sounds heard in all quadrants. EXTREMITIES: Without cyanosis or clubbing. Trace edema, improving contusion over his right shoulder area. CENTRAL NERVOUS SYSTEM: Improving deconditioning. LABORATORY VALUES: White count is up today at 15.1. H&H is 10.3 and 32.4, it was 8.8 and 27.6 yeste rday, not sure how accurate this is. Chemistry: Sodium 141, potassium 4.9, BUN and creatinine 28 an d 1.26. Blood sugars are 119, 108, 105, 233. IMPRESSION: 1. Resolving urinary tract infection. 2. Resolved renal insufficiency. 3. Diabetes mellitus type 2. 4. Chronic systolic congestive heart failure. 5. Legally blind. 6. Status post fall and right humerus fracture and right acetabular fracture. 7. Anemia requiring blood transfusion. PLAN: 1. Repeat CBC in the morning. 2. Stop IV fluids. 3. Continue nitrofurantoin for physical therapy. 4. Orthopedic precautions. 5. Home medications. 6. Heart healthy ADA diet. 7. Accu-Cheks. 8. DVT and stress ulcer prophylaxis. 9. No family at bedside.
[2017-07-17] MEDS: Latanoprost 0.005% Ophth Soln 2.5 ml Bottle EA EYE SCH (20:57)
[2017-07-17] MEDS: Terazosin HCl 1 MG CAP PO SCH (20:58)
[2017-07-18] MEDS: Acetaminophen 500 MG TAB PO SCH ×4 (00:47→17:17)
[2017-07-18] MEDS: traMADol HCl 50 MG TAB PO SCH (03:19)
[2017-07-18 05:11] LABS: #Basophils 0.1 thou/uL (0.0-0.2); #Eosinphils 0.1 thou/uL (0.0-0.7); #Lymphocytes 2.9 thou/uL (1.20-3.40); #Monocytes 1.5 thou/uL (0.11-0.59); #Neutrophils 12.8 thou/uL (1.40-6.50); %Basophils 0.4 % (0.0-1.0); %Eosinophils 0.7 % (0.0-10.0); %Lymphocytes 16.4 % (21.0-51.0); %Monocytes 8.8 % (0.0-10.0); %Neutrophils 73.7 % (42.0-75.0); Mean Corpuscular HGB CONC 32.8 g/dL (32.0-36.0); Mean Corpuscular Hemoglobin 31.4 pg (27.0-31.0); Mean Corpuscular Volume 95.9 fl (80.0-94.0); Mean Platelet Volume 8.3 fL (7.4-10.4); Platelet Count 420 thou/uL (130-400); RBC Distribution Width 13.5 % (11.5-14.5); Red Blood Cell (RBC) Count 3.18 mill/uL (4.70-6.10); White Blood Cell (WBC) Count 17.4 thou/uL (4.8-10.8)
[2017-07-18] MEDS: Bisacodyl 10 MG SUPP PR SCH ×3 (05:49→21:03)
[2017-07-18] MEDS: Saccharomyces boulardii 250 MG CAP PO SCH (08:26)
[2017-07-18] MEDS: Folic Acid 1 MG TAB PO SCH (08:26)
[2017-07-18] MEDS: Glimepiride 2 MG TAB PO SCH (08:27)
[2017-07-18] MEDS: Ascorbic Acid 500 mg Chewable Tablet PO SCH ×2 (08:27→21:03)
[2017-07-18] MEDS: Carvedilol 25 MG TAB PO SCH ×2 (08:28→21:03)
[2017-07-18] MEDS: Ferrous Sulfate 325 MG TAB PO SCH ×2 (08:28→17:16)
[2017-07-18] MEDS: Famotidine 20 MG TAB PO SCH (08:29)
[2017-07-18] MEDS: Nitrofurantoin Macrocrystal 50 MG CAP PO SCH (09:23)
[2017-07-18] MEDS: Finasteride 5 MG TAB PO SCH (09:23)
[2017-07-18] MEDS: Timolol 0.5% Ophth Soln 5 ml Bottle EA EYE SCH ×2 (09:23→21:01)
--- NOTE | 2017-07-18 13:12 | PRG ---
DATE OF SERVICE: 07/18/2017 SUBJECTIVE: Mr. Harrington is doing well. Denies any complaints. He is able to recognize me, but he states that he and his went out and he came back last night, then went straight to bed. Denies any pain anywhere. OBJECTIVE: VITAL SIGNS: He is afebrile, heart rate 84, respirations 19, oxygen saturation 96%, and blood pressu re 122/54. CARDIOVASCULAR SYSTEM: S1, S2 plus. RESPIRATORY SYSTEM: Normal vesicular breath sounds. ABDOMEN: Soft, nontender, bowel sounds heard in all quadrants. EXTREMITIES: Without cyanosis or clubbing. LABORATORY DATA: White count is up to 17.4, hemoglobin and hematocrit is 10 and 30.5, blood sugars a re 158, 118, and 157. IMPRESSION: 1. Urinary tract infection with Enterococcus, I am not sure if he is responding to the Macrobid. We will change him to Levaquin. 2. Monitor leukocytosis. 3. Physical therapy. 4. Recent fall with right humerus and right acetabular fracture. 5. Diabetes mellitus type 2. 6. Chronic systolic congestive heart failure. 8. History of anemia requiring blood transfusion secondary to gastrointestinal bleed. PLAN: 1. Change to Levaquin. 2. Continue other medications. 3. Physical therapy. 4. Orthopedic precautions. 5. Accu-Cheks with sliding scale coverage. 6. Nutritional support. 7. Routine laboratory values. 8. No family at bedside.
[2017-07-18] MEDS: Latanoprost 0.005% Ophth Soln 2.5 ml Bottle EA EYE SCH (21:02)
[2017-07-18] MEDS: Terazosin HCl 1 MG CAP PO SCH (21:03)
[2017-07-19] MEDS: Acetaminophen 500 MG TAB PO SCH ×4 (00:31→17:02)
[2017-07-19] MEDS: Bisacodyl 10 MG SUPP PR SCH ×3 (05:27→23:18)
[2017-07-19 05:33] LABS: #Basophils 0.1 thou/uL (0.0-0.2); #Eosinphils 0.1 thou/uL (0.0-0.7); #Lymphocytes 2.1 thou/uL (1.20-3.40); #Monocytes 1.5 thou/uL (0.11-0.59); #Neutrophils 9.8 thou/uL (1.40-6.50); %Basophils 0.4 % (0.0-1.0); %Eosinophils 0.8 % (0.0-10.0); %Lymphocytes 15.3 % (21.0-51.0); %Monocytes 10.9 % (0.0-10.0); %Neutrophils 72.6 % (42.0-75.0); Hemoglobin 8.9 g/dL (14.0-18.0); Mean Corpuscular HGB CONC 32.2 g/dL (32.0-36.0); Mean Corpuscular Volume 96.3 fl (80.0-94.0); Mean Platelet Volume 8.5 fL (7.4-10.4); Platelet Count 379 thou/uL (130-400); RBC Distribution Width 13.4 % (11.5-14.5); Red Blood Cell (RBC) Count 2.88 mill/uL (4.70-6.10); White Blood Cell (WBC) Count 13.5 thou/uL (4.8-10.8)
[2017-07-19 05:49] LABS: Anion Gap 12 mmol/L (10-20); BUN (Urea Nitrogen) 37 mg/dL (8.4-25.7); Calc. Creatinine Clearance 49 mL/min (70-130); Calcium 8.7 mg/dL (7.8-10.44); Carbon Dioxide 22 mmol/L (23-31); Chloride 109 mmol/L (98-107); Estimated GFR-MDRD 47; Glucose 90 mg/dL (83-110); Potassium 4.6 mmol/L (3.5-5.1); Sodium 138 mmol/L (136-145)
[2017-07-19] MEDS: Saccharomyces boulardii 250 MG CAP PO SCH (08:38)
[2017-07-19] MEDS: Ascorbic Acid 500 mg Chewable Tablet PO SCH ×2 (08:38→20:55)
[2017-07-19] MEDS: Carvedilol 25 MG TAB PO SCH ×2 (08:39→20:55)
[2017-07-19] MEDS: Ferrous Sulfate 325 MG TAB PO SCH ×2 (08:39→17:02)
[2017-07-19] MEDS: Glimepiride 2 MG TAB PO SCH (08:39)
[2017-07-19] MEDS: Folic Acid 1 MG TAB PO SCH (08:39)
[2017-07-19] MEDS: Famotidine 20 MG TAB PO SCH (08:40)
[2017-07-19] MEDS: Finasteride 5 MG TAB PO SCH (08:40)
[2017-07-19] MEDS: Timolol 0.5% Ophth Soln 5 ml Bottle EA EYE SCH ×2 (08:41→21:43)
--- NOTE | 2017-07-19 12:43 | PRG ---
DATE OF SERVICE: 07/19/2017 SUBJECTIVE: Mr. Harrington is able to recognize me, but he is having episodes of confusion. His famil y is in the room. Denies any other concerns. OBJECTIVE: VITAL SIGNS: He is afebrile, heart rate 74, respirations 20, oxygen saturation 96%, blood pressure 1 26/60. CARDIOVASCULAR: S1, S2 plus. RESPIRATORY: Normal vesicular breath sounds. ABDOMEN: Soft, nontender, bowel sounds heard in all quadrants. EXTREMITIES: Without cyanosis or clubbing. CENTRAL NERVOUS SYSTEM: Improving deconditioning, episodes of confusion. LABORATORY VALUES: White count is 13.5 down from 17.4, H&H is 8.9 and 27.7. Sodium 138, potassium 4 .6, BUN and creatinine 37 and 1.43. IMPRESSION: 1. Improving leukocytosis, likely due to urinary tract infection. 2. Episodes of confusion. 3. Status post fall and right humerus and right hip fracture. 4. Chronic kidney disease stage 2-3. 5. Diabetes mellitus type 2. 6. Chronic systolic congestive heart failure. 7. Diabetes mellitus type 2. Blood sugars are 150, 119 and 107. PLAN: 1. Continue Levaquin. 2. Encourage p.o. intake. 3. Orthopedic precautions. 4. DVT and stress ulcer prophylaxis. 5. Decubitus precautions. 6. Routine laboratory values. 7. Monitor cognitive status and discuss with patient and family in detail and all questions answered .
[2017-07-19] MEDS: Terazosin HCl 1 MG CAP PO SCH (20:55)
[2017-07-19] MEDS: Latanoprost 0.005% Ophth Soln 2.5 ml Bottle EA EYE SCH (21:42)
[2017-07-20] MEDS: Acetaminophen 500 MG TAB PO SCH ×4 (06:08→17:12)
[2017-07-20] MEDS: Bisacodyl 10 MG SUPP PR SCH ×3 (06:09→20:55)
[2017-07-20] MEDS: Timolol 0.5% Ophth Soln 5 ml Bottle EA EYE SCH ×2 (08:20→20:56)
[2017-07-20] MEDS: Folic Acid 1 MG TAB PO SCH (08:21)
[2017-07-20] MEDS: Ascorbic Acid 500 mg Chewable Tablet PO SCH ×2 (08:21→20:55)
[2017-07-20] MEDS: Saccharomyces boulardii 250 MG CAP PO SCH (08:21)
[2017-07-20] MEDS: Carvedilol 25 MG TAB PO SCH ×2 (08:21→20:55)
[2017-07-20] MEDS: Finasteride 5 MG TAB PO SCH (08:21)
[2017-07-20] MEDS: Famotidine 20 MG TAB PO SCH (08:21)
[2017-07-20] MEDS: Ferrous Sulfate 325 MG TAB PO SCH ×2 (08:21→17:12)
[2017-07-20] MEDS: Glimepiride 2 MG TAB PO SCH (08:22)
--- NOTE | 2017-07-20 11:35 | PRG ---
DATE OF SERVICE: 07/20/2017 SUBJECTIVE: Mr. Harrington is doing better, denies any complaints. He states that he needs assistance with feeding. He has not been able to drink enough water because he cannot even see the cup. I am going to make communication to nursing to make sure they have CAN, so the nurse is going every couple of hours and may ensures that he is given water to drink. OBJECTIVE: VITAL SIGNS: He is afebrile, heart rate 69, respirations 20, oxygen saturation 96%, and blood pressu re 109/57. CARDIOVASCULAR SYSTEM: S1, S2 plus. RESPIRATORY SYSTEM: Normal vesicular breath sounds. ABDOMEN: Soft, nontender, bowel sounds heard in all quadrants. EXTREMITIES: Without cyanosis or clubbing. IMPRESSION: 1. Status post fall, right humerus and right acetabular fracture. 2. Chronic kidney disease stage 3. 3. Visual impairment. 4. Diabetes mellitus type 2. 5. Deconditioning. 6. Resolving urinary tract infection. 7. Paroxysmal atrial fibrillation. 8. Benign prostatic hypertrophy. PLAN: 1. Have nursing help with fluid intake and assistance with feeding. 2. Continue current medications. 3. Physical therapy with orthopedic precautions. 4. DVT and stress ulcer prophylaxis. 5. Decubitus precautions. 6. Routine laboratory values. 7. No family at bedside.
[2017-07-20] MEDS: Terazosin HCl 1 MG CAP PO SCH (20:55)
[2017-07-20] MEDS: Latanoprost 0.005% Ophth Soln 2.5 ml Bottle EA EYE SCH (20:56)
[2017-07-21] MEDS: Acetaminophen 500 MG TAB PO SCH ×5 (01:53→17:24)
[2017-07-21 05:31] LABS: #Basophils 0.1 thou/uL (0.0-0.2); #Eosinphils 0.2 thou/uL (0.0-0.7); #Lymphocytes 2.4 thou/uL (1.20-3.40); #Monocytes 1.3 thou/uL (0.11-0.59); #Neutrophils 10.7 thou/uL (1.40-6.50); %Basophils 0.5 % (0.0-1.0); %Eosinophils 1.2 % (0.0-10.0); %Lymphocytes 16.2 % (21.0-51.0); %Monocytes 8.6 % (0.0-10.0); %Neutrophils 73.6 % (42.0-75.0); Hemoglobin 8.6 g/dL (14.0-18.0); Mean Corpuscular HGB CONC 32.2 g/dL (32.0-36.0); Mean Corpuscular Hemoglobin 31.1 pg (27.0-31.0); Mean Corpuscular Volume 96.7 fl (80.0-94.0); Platelet Count 347 thou/uL (130-400); RBC Distribution Width 13.1 % (11.5-14.5); Red Blood Cell (RBC) Count 2.77 mill/uL (4.70-6.10); White Blood Cell (WBC) Count 14.6 thou/uL (4.8-10.8)
[2017-07-21 05:50] LABS: Anion Gap 14 mmol/L (10-20); BUN (Urea Nitrogen) 40 mg/dL (8.4-25.7); Calc. Creatinine Clearance 47 mL/min (70-130); Calcium 8.3 mg/dL (7.8-10.44); Carbon Dioxide 21 mmol/L (23-31); Chloride 106 mmol/L (98-107); Estimated GFR-MDRD 45; Glucose 81 mg/dL (83-110); Potassium 4.9 mmol/L (3.5-5.1); Sodium 136 mmol/L (136-145)
[2017-07-21] MEDS: Bisacodyl 10 MG SUPP PR SCH ×3 (05:59→21:19)
[2017-07-21] MEDS: Timolol 0.5% Ophth Soln 5 ml Bottle EA EYE SCH ×2 (08:24→21:17)
[2017-07-21] MEDS: Saccharomyces boulardii 250 MG CAP PO SCH (08:25)
[2017-07-21] MEDS: Ascorbic Acid 500 mg Chewable Tablet PO SCH ×2 (08:25→21:15)
[2017-07-21] MEDS: Carvedilol 25 MG TAB PO SCH ×2 (08:25→21:15)
[2017-07-21] MEDS: Famotidine 20 MG TAB PO SCH (08:26)
[2017-07-21] MEDS: Ferrous Sulfate 325 MG TAB PO SCH ×2 (08:26→17:21)
[2017-07-21] MEDS: Finasteride 5 MG TAB PO SCH (08:26)
[2017-07-21] MEDS: Folic Acid 1 MG TAB PO SCH (08:27)
[2017-07-21] MEDS: Glimepiride 2 MG TAB PO SCH (08:36)
--- NOTE | 2017-07-21 08:53 | PRG ---
DATE OF SERVICE: 07/21/2017 SUBJECTIVE: Mr. Harrington is doing well. Denies any complaints. Resting comfortably, tolerating his diet. Nursing is helping him drink more water and assisting him with feeding. No family at bedside . OBJECTIVE: VITAL SIGNS: He is afebrile, heart rate 71, respirations 18, oxygen saturation 97%, blood pressure 1 23/60. CARDIOVASCULAR: S1, S2 plus. RESPIRATORY: Normal vesicular breath sounds. ABDOMEN: Soft, nontender, bowel sounds heard in all quadrants. EXTREMITIES: Without cyanosis or clubbing. Trace edema. CENTRAL NERVOUS SYSTEM: Generalized weakness. IMPRESSION: 1. Status post fall and right humerus and right acetabular fracture. 2. Chronic kidney disease stage 3. 3. Diabetes mellitus type 2 with episodes of hypoglycemia. 4. Paroxysmal atrial fibrillation. 5. Chronic systolic congestive heart failure. 6. Legally blind. 7. Degenerative joint disease. PLAN: 1. Stop Amaryl. 2. Encourage p.o. intake. 3. Finish Levaquin after a total of 10 days. 4. Deep venous thrombosis and stress ulcer prophylaxis. 5. Decubitus precautions. 6. Routine laboratory values. 7. Physical therapy. 8. Orthopedic precautions.
[2017-07-21] MEDS: Terazosin HCl 1 MG CAP PO SCH (21:15)
[2017-07-21] MEDS: Latanoprost 0.005% Ophth Soln 2.5 ml Bottle EA EYE SCH (21:18)
[2017-07-22] MEDS: Acetaminophen 500 MG TAB PO SCH ×4 (03:01→17:33)
[2017-07-22] MEDS: Bisacodyl 10 MG SUPP PR SCH ×3 (06:09→22:02)
[2017-07-22 07:03] LABS: #Basophils 0.1 thou/uL (0.0-0.2); #Eosinphils 0.1 thou/uL (0.0-0.7); #Lymphocytes 2.1 thou/uL (1.20-3.40); #Monocytes 1.4 thou/uL (0.11-0.59); %Basophils 0.6 % (0.0-1.0); %Eosinophils 0.8 % (0.0-10.0); %Lymphocytes 22.2 % (21.0-51.0); %Monocytes 14.6 % (0.0-10.0); %Neutrophils 61.8 % (42.0-75.0); Hemoglobin 8.5 g/dL (14.0-18.0); Mean Corpuscular Hemoglobin 30.6 pg (27.0-31.0); Mean Corpuscular Volume 95.6 fl (80.0-94.0); Mean Platelet Volume 8.2 fL (7.4-10.4); Platelet Count 312 thou/uL (130-400); RBC Distribution Width 13.1 % (11.5-14.5); Red Blood Cell (RBC) Count 2.76 mill/uL (4.70-6.10); White Blood Cell (WBC) Count 9.6 thou/uL (4.8-10.8)
[2017-07-22 07:36] LABS: Anion Gap 12 mmol/L (10-20); BUN (Urea Nitrogen) 35 mg/dL (8.4-25.7); Calc. Creatinine Clearance 49 mL/min (70-130); Calcium 8.1 mg/dL (7.8-10.44); Carbon Dioxide 21 mmol/L (23-31); Chloride 106 mmol/L (98-107); Estimated GFR-MDRD 46; Glucose 125 mg/dL (83-110); Potassium 4.8 mmol/L (3.5-5.1); Sodium 134 mmol/L (136-145)
[2017-07-22] MEDS: Ascorbic Acid 500 mg Chewable Tablet PO SCH ×2 (08:18→21:58)
[2017-07-22] MEDS: Famotidine 20 MG TAB PO SCH (08:18)
[2017-07-22] MEDS: Saccharomyces boulardii 250 MG CAP PO SCH (08:18)
[2017-07-22] MEDS: Ferrous Sulfate 325 MG TAB PO SCH ×2 (08:18→17:33)
[2017-07-22] MEDS: Carvedilol 25 MG TAB PO SCH ×2 (08:18→21:58)
[2017-07-22] MEDS: Timolol 0.5% Ophth Soln 5 ml Bottle EA EYE SCH ×2 (08:19→21:59)
[2017-07-22] MEDS: Finasteride 5 MG TAB PO SCH (08:19)
[2017-07-22] MEDS: Folic Acid 1 MG TAB PO SCH (08:19)
--- NOTE | 2017-07-22 08:47 | PRG ---
DATE OF SERVICE: 07/22/2017 DATE OF ADMISSION: 07/07/2017 HISTORY OF PRESENT ILLNESS: Mr. Harrington is a very pleasant 86-year-old white male that fell at home . He had resultant right humeral head fracture and right acetabular fracture. He was seen by Dr. Rajesh Martinez and recommended nonoperative therapy. He was transferred to [facility] for pain management with physical therapy and occupational therapy, and maintenance of all his other medical problems. SUBJECTIVE: The patient states he is doing well today. He is eating well and has no significant jordin n. He thinks he is getting much stronger. He is not confused today. He is oriented to person and p lace. PHYSICAL EXAMINATION: VITAL SIGNS: Reveal blood pressure this morning was 110/49, pulse 50-57, respirations 17-20, O2 sat 97%, T-max 97.8. GENERAL: This is a well-developed, well-nourished, very pleasant white male in no apparent distress at this time. HEENT: Reveals normocephalic, nontraumatic cranium. Pupils are equally round and reactive. Extraoc ular movements intact. Nose and throat are slightly dry. NECK: Supple, without masses, nodes or bruits. CHEST: Clear to auscultation. No rales, rhonchi, or wheezes are heard. No cough is noted. HEART: Reveals a regular rate and rhythm without murmurs, gallops or rubs. Patient does have a hist ory of paroxysmal atrial fib. ABDOMEN: Soft and nontender, without organomegaly, normal bowel sounds are noted. No rebound or gua rding is noted. GENITOURINARY: Deferred. EXTREMITIES: Reveal no clubbing, cyanosis or edema. Patient complains of not much right hip pain or right arm pain. IMPRESSION: 1. Right proximal humeral fracture. 2. Right acetabular fracture. 3. Retroperitoneal hematoma. 4. Diabetes. 5. Hyperlipidemia. 6. Hypertension. 7. Paroxysmal atrial fibrillation. 8. Chronic kidney disease. 9. Blind. 10. Peptic ulcer disease. 11. Deep venous thrombosis in the past and has been on warfarin in the past. 12. Chronic anemia. 13. Generalized weakness. PLAN: 1. Continue present management. 2. Stress ulcer prophylaxis. 3. Decubitus precautions. 4. Deep venous thrombosis prophylaxis. 5. Physical therapy and occupational therapy. 6. Supportive care.
[2017-07-22] MEDS: Terazosin HCl 1 MG CAP PO SCH (21:58)
[2017-07-22] MEDS: Latanoprost 0.005% Ophth Soln 2.5 ml Bottle EA EYE SCH (22:00)
[2017-07-23] MEDS: Acetaminophen 500 MG TAB PO SCH ×4 (00:28→17:28)
[2017-07-23] MEDS: Bisacodyl 10 MG SUPP PR SCH ×2 (06:22→14:36)
[2017-07-23] MEDS: Timolol 0.5% Ophth Soln 5 ml Bottle EA EYE SCH ×2 (08:58→21:29)
[2017-07-23] MEDS: Finasteride 5 MG TAB PO SCH (08:59)
[2017-07-23] MEDS: Saccharomyces boulardii 250 MG CAP PO SCH (08:59)
[2017-07-23] MEDS: Ascorbic Acid 500 mg Chewable Tablet PO SCH ×2 (08:59→21:26)
[2017-07-23] MEDS: Carvedilol 25 MG TAB PO SCH ×2 (09:00→21:26)
[2017-07-23] MEDS: Famotidine 20 MG TAB PO SCH (09:00)
[2017-07-23] MEDS: Ferrous Sulfate 325 MG TAB PO SCH ×2 (09:00→17:28)
[2017-07-23] MEDS: Folic Acid 1 MG TAB PO SCH (09:00)
--- NOTE | 2017-07-23 09:26 | PRG ---
DATE OF SERVICE: 07/23/2017 DATE OF ADMISSION: 07/07/2017 HISTORY OF PRESENT ILLNESS: Mr. Harrington is a very pleasant 86-year-old white male that fell at home . He had a right humeral head fracture and right acetabular fracture. He was seen by Orthopedics an d they recommended nonoperative therapy. He was transferred to [facility] for pain m anagement for physical therapy and occupational therapy maintenance of his other medical problems. SUBJECTIVE: The patient states he is doing well today. He states he is still somewhat sleepy, but h e will wake up and eat a good breakfast this morning. He has no complaints today. PHYSICAL EXAMINATION: VITAL SIGNS: Reveal blood pressure this morning 120/45, pulse 50-78, respirations 18, O2 sat 97% on room air, T-max is 97.8. Yesterday 117 fasting, 143 before lunch, 126 before supper, and 180 at bedt anabela. GENERAL: This is a well-developed, well-nourished, pleasant white male, not confused this morning. HEENT: Reveals normocephalic, nontraumatic cranium. Pupils are equally round and reactive. Extraoc ular movements are intact. Nose and throat are slightly dry, but clear. NECK: Supple without masses, nodes or bruits. LUNGS: Chest is clear to auscultation. No rales, no rhonchi, no wheezes and no cough noted. HEART: Reveals a regular rate and rhythm without murmurs, gallops or rubs. ABDOMEN: Soft and nontender, without organomegaly. Normal bowel sounds are noted. No rebound or gu arding is noted. GENITOURINARY: Deferred. EXTREMITIES: Reveal no clubbing, cyanosis or edema. NEUROLOGIC: Patient does not have any complaint of any hip pain or her right arm pain. IMPRESSION: 1. Right proximal humeral fracture. 2. Right acetabular fracture. 3. Retroperitoneal hematoma. 4. Diabetes, stable. 5. Hyperlipidemia. 6. Hypertension, stable. 7. Paroxysmal atrial fibrillation. 8. Chronic kidney disease. 9. Blind. 19. Peptic ulcer disease 11. Deep venous thrombosis in the past, has been on warfarin in the past. 12. Chronic anemia. 13. Generalized weakness. PLAN: 1. Continue present medications. 2. Stress ulcer prophylaxis. 3. Decubitus precautions. 4. Deep venous thrombosis prophylaxis. 5. Physical therapy and occupational therapy. 6. Continue present management and supportive care.
[2017-07-23] MEDS: Terazosin HCl 1 MG CAP PO SCH (21:26)
[2017-07-23] MEDS: Latanoprost 0.005% Ophth Soln 2.5 ml Bottle EA EYE SCH (21:29)
[2017-07-23] MEDS ORDERED: risperiDONE 0.5 MG TAB PO PRN (22:24)
[2017-07-24] MEDS: Acetaminophen 500 MG TAB PO SCH ×4 (04:32→17:46)
[2017-07-24] MEDS: Bisacodyl 10 MG SUPP PR SCH ×3 (04:32→14:06)
[2017-07-24] MEDS: Folic Acid 1 MG TAB PO SCH (09:06)
[2017-07-24] MEDS: Ascorbic Acid 500 mg Chewable Tablet PO SCH ×2 (09:06→20:57)
[2017-07-24] MEDS: Finasteride 5 MG TAB PO SCH (09:06)
[2017-07-24] MEDS: Famotidine 20 MG TAB PO SCH (09:06)
[2017-07-24] MEDS: Saccharomyces boulardii 250 MG CAP PO SCH (09:06)
[2017-07-24] MEDS: Ondansetron ODT 4 MG TAB PO PRN (09:06)
[2017-07-24] MEDS: Ferrous Sulfate 325 MG TAB PO SCH ×2 (09:06→17:46)
[2017-07-24] MEDS: Carvedilol 25 MG TAB PO SCH ×2 (09:07→21:01)
[2017-07-24] MEDS: Timolol 0.5% Ophth Soln 5 ml Bottle EA EYE SCH ×2 (09:15→20:58)
--- NOTE | 2017-07-24 16:39 | PRG ---
DATE OF SERVICE: 07/24/2017 SUBJECTIVE: Mr. Harrington is doing well this morning. He apparently had an episode of confusion yest shayla. Family is here. They have arranged for him to go to a halfway facility in [place] . No other questions or concerns. I advised them that with him not having any interaction and he is so used to his staying with him and with her not being there that he is probably having some chen ndowning because he is not able to compensate anymore and I am going to try him on low dose Aricept. I am going to discontinue the Risperdal because it apparently kept him zonked out. His laboratory v alues are within normal limits. OBJECTIVE: VITAL SIGNS: He is afebrile, heart rate 98, respirations 20, oxygen saturation 96% and blood pressur e 107/58. CARDIOVASCULAR SYSTEM: S1, S2 plus. RESPIRATORY SYSTEM: Normal vesicular breath sounds. ABDOMEN: Soft and nontender. Bowel sounds heard in all quadrants. EXTREMITIES: Without cyanosis or clubbing. Right shoulder in a sling. Trace edema. LABORATORY VALUES: Blood sugars are 143, 126, 180 and 146. Sodium 134, potassium 4.8, BUN and creat inine is 35 and 1.44. White count is down to 9.6, normal hemoglobin and hematocrit is 8.5 and 26.4. IMPRESSION: 1. Resolving urinary tract infection with Levaquin. 2. Possible sundowning. 3. Status post fall and right humerus and right acetabular fracture. 4. Diabetes mellitus type 2. 5. Chronic kidney disease. 6. Anemia with history of gastrointestinal bleed, requiring blood transfusion. 7. Paroxysmal atrial fibrillation. 8. Chronic systolic congestive heart failure. 9. Legally blind. PLAN: 1. Continue orthopedic precautions. 2. Assist with feeding. 3. Nutritional support. 4. Encourage p.o. intake. 5. Trial of Aricept 5 mg. 6. Discontinue Risperdal. 7. Placement. 8. I discussed with the family in detail and all questions answered.
[2017-07-24] MEDS: Donepezil HCl 5 MG TAB PO SCH (20:57)
[2017-07-24] MEDS: Terazosin HCl 1 MG CAP PO SCH (20:57)
[2017-07-24] MEDS: Latanoprost 0.005% Ophth Soln 2.5 ml Bottle EA EYE SCH (20:58)
[2017-07-25] MEDS: Bisacodyl 10 MG SUPP PR SCH ×4 (00:56→22:27)
[2017-07-25] MEDS: Acetaminophen 500 MG TAB PO SCH ×4 (03:22→16:10)
[2017-07-25] MEDS: Saccharomyces boulardii 250 MG CAP PO SCH (08:45)
[2017-07-25] MEDS: Folic Acid 1 MG TAB PO SCH (08:45)
[2017-07-25] MEDS: Finasteride 5 MG TAB PO SCH (08:45)
[2017-07-25] MEDS: Ascorbic Acid 500 mg Chewable Tablet PO SCH ×2 (08:45→21:10)
[2017-07-25] MEDS: Carvedilol 25 MG TAB PO SCH ×2 (08:45→21:10)
[2017-07-25] MEDS: Ferrous Sulfate 325 MG TAB PO SCH ×2 (08:45→17:55)
[2017-07-25] MEDS: Famotidine 20 MG TAB PO SCH (08:45)
[2017-07-25] MEDS: Ondansetron ODT 4 MG TAB PO PRN (08:46)
[2017-07-25] MEDS: Timolol 0.5% Ophth Soln 5 ml Bottle EA EYE SCH ×2 (08:57→21:14)
[2017-07-25] MEDS: Terazosin HCl 1 MG CAP PO SCH (21:10)
[2017-07-25] MEDS: Donepezil HCl 5 MG TAB PO SCH (21:11)
[2017-07-25] MEDS: Latanoprost 0.005% Ophth Soln 2.5 ml Bottle EA EYE SCH (21:12)
[2017-07-26] MEDS: Acetaminophen 500 MG TAB PO SCH ×5 (05:37→21:06)
[2017-07-26] MEDS: Bisacodyl 10 MG SUPP PR SCH ×4 (06:13→23:28)
[2017-07-26] MEDS: Folic Acid 1 MG TAB PO SCH (08:42)
[2017-07-26] MEDS: Finasteride 5 MG TAB PO SCH (08:42)
[2017-07-26] MEDS: Famotidine 20 MG TAB PO SCH (08:42)
[2017-07-26] MEDS: Ferrous Sulfate 325 MG TAB PO SCH ×2 (08:43→17:08)
[2017-07-26] MEDS: Carvedilol 25 MG TAB PO SCH ×2 (08:43→20:59)
[2017-07-26] MEDS: Saccharomyces boulardii 250 MG CAP PO SCH (08:44)
[2017-07-26] MEDS: Timolol 0.5% Ophth Soln 5 ml Bottle EA EYE SCH ×2 (08:44→20:58)
[2017-07-26] MEDS: Ascorbic Acid 500 mg Chewable Tablet PO SCH ×2 (08:44→20:58)
[2017-07-26] MEDS ORDERED: Guaifenesin DM 100-10/5 ML UDCUP PO PRN (20:33)
[2017-07-26] MEDS ORDERED: Ondansetron ODT 4 MG TAB PO PRN (20:34)
[2017-07-26] MEDS ORDERED: Milk Of Magnesia 30 ML UDCUP PO PRN (20:34)
[2017-07-26] MEDS ORDERED: Loperamide HCl 2 MG CAP PO PRN (20:34)
[2017-07-26] MEDS: Latanoprost 0.005% Ophth Soln 2.5 ml Bottle EA EYE SCH (21:00)
[2017-07-26] MEDS: Donepezil HCl 5 MG TAB PO SCH (21:00)
[2017-07-26] MEDS: Terazosin HCl 1 MG CAP PO SCH (21:00)
[2017-07-27] MEDS: Acetaminophen 500 MG TAB PO SCH ×3 (05:24→17:18)
[2017-07-27] MEDS: Bisacodyl 10 MG SUPP PR SCH ×3 (05:24→22:03)
[2017-07-27] MEDS: Saccharomyces boulardii 250 MG CAP PO SCH (08:27)
[2017-07-27] MEDS: Carvedilol 25 MG TAB PO SCH ×2 (08:27→22:03)
[2017-07-27] MEDS: Ascorbic Acid 500 mg Chewable Tablet PO SCH ×2 (08:27→22:02)
[2017-07-27] MEDS: Ferrous Sulfate 325 MG TAB PO SCH ×2 (08:27→17:18)
[2017-07-27] MEDS: Finasteride 5 MG TAB PO SCH (08:28)
[2017-07-27] MEDS: Folic Acid 1 MG TAB PO SCH (08:28)
[2017-07-27] MEDS: Timolol 0.5% Ophth Soln 5 ml Bottle EA EYE SCH ×2 (08:28→22:01)
[2017-07-27] MEDS: Famotidine 20 MG TAB PO SCH (08:28)
--- NOTE | 2017-07-27 13:08 | PRG ---
DATE OF SERVICE: 07/27/2017 SUBJECTIVE: Mr. Harrington is doing well. Denies any complaints, resting comfortably, tolerating his medications. No family at bedside, discussed with nursing. OBJECTIVE: VITAL SIGNS: He is afebrile, heart rate 64, respirations 18, oxygen saturation 97%, blood pressure 1 16/56. CARDIOVASCULAR: S1, S2 plus. RESPIRATORY: Normal vesicular breath sounds. ABDOMEN: Soft, nontender, bowel sounds heard in all quadrants. EXTREMITIES: Without cyanosis or clubbing. Trace edema, worse on the right leg, healing contusions on the right shoulder area and arm. CENTRAL NERVOUS SYSTEM: Generalized weakness. LABORATORY VALUES: Blood sugars are 125, 147, 110 and 111. IMPRESSION: 1. Status post fall and right humerus and right acetabular fracture. 2. Chronic kidney disease stage 2-3. 3. Chronic systolic congestive heart failure. 4. Diabetes mellitus type 2. 5. Hypertension. 6. Dyslipidemia. 7. Paroxysmal atrial fibrillation. 8. History of gastrointestinal bleed with anemia requiring blood transfusion, stable. 9. Resolved urinary tract infection. PLAN: 1. Continue current medications. 2. Nutritional support. 3. Physical therapy. 4. Orthopedic precautions. 5. Encourage p.o. intake. 6. DVT and stress ulcer prophylaxis. 7. Decubitus precautions. 8. Continue home medications. 9. Anticipate transferring him to care home facility in the [facility] tomorrow once sandra luis. Family is aware per the equity director. Discussed with the patient in detail and all que stions answered.
[2017-07-27] MEDS: Latanoprost 0.005% Ophth Soln 2.5 ml Bottle EA EYE SCH (22:00)
[2017-07-27] MEDS: Donepezil HCl 5 MG TAB PO SCH (22:02)
[2017-07-27] MEDS: Terazosin HCl 1 MG CAP PO SCH (22:03)
[2017-07-28] MEDS: Acetaminophen 500 MG TAB PO SCH ×4 (00:37→16:15)
[2017-07-28 05:18] LABS: #Basophils 0.1 thou/uL (0.0-0.2); #Eosinphils 0.1 thou/uL (0.0-0.7); #Lymphocytes 2.3 thou/uL (1.20-3.40); #Monocytes 0.8 thou/uL (0.11-0.59); #Neutrophils 3.5 thou/uL (1.40-6.50); %Basophils 0.7 % (0.0-1.0); %Eosinophils 1.6 % (0.0-10.0); %Lymphocytes 34.4 % (21.0-51.0); %Neutrophils 51.3 % (42.0-75.0); Hemoglobin 8.8 g/dL (14.0-18.0); Mean Corpuscular HGB CONC 32.1 g/dL (32.0-36.0); Mean Corpuscular Hemoglobin 30.7 pg (27.0-31.0); Mean Corpuscular Volume 95.5 fl (80.0-94.0); Mean Platelet Volume 9.3 fL (7.4-10.4); Platelet Count 232 thou/uL (130-400); RBC Distribution Width 13.2 % (11.5-14.5); Red Blood Cell (RBC) Count 2.85 mill/uL (4.70-6.10); White Blood Cell (WBC) Count 6.8 thou/uL (4.8-10.8)
[2017-07-28 05:34] LABS: Anion Gap 13 mmol/L (10-20); BUN (Urea Nitrogen) 32 mg/dL (8.4-25.7); Calc. Creatinine Clearance 50 mL/min (70-130); Calcium 8.4 mg/dL (7.8-10.44); Carbon Dioxide 21 mmol/L (23-31); Chloride 107 mmol/L (98-107); Estimated GFR-MDRD 48; Glucose 102 mg/dL (83-110); Potassium 4.5 mmol/L (3.5-5.1); Sodium 136 mmol/L (136-145)
[2017-07-28 06:13] VITALS: BMI 26.9
[2017-07-28] MEDS: Bisacodyl 10 MG SUPP PR SCH ×2 (06:13→15:58)
[2017-07-28] MEDS: Ferrous Sulfate 325 MG TAB PO SCH ×2 (09:14→16:15)
[2017-07-28] MEDS: Finasteride 5 MG TAB PO SCH (09:14)
[2017-07-28] MEDS: Folic Acid 1 MG TAB PO SCH (09:14)
[2017-07-28] MEDS: Ascorbic Acid 500 mg Chewable Tablet PO SCH (09:14)
[2017-07-28] MEDS: Timolol 0.5% Ophth Soln 5 ml Bottle EA EYE SCH (09:15)
[2017-07-28] MEDS: Carvedilol 25 MG TAB PO SCH (09:15)
[2017-07-28] MEDS: Famotidine 20 MG TAB PO SCH (09:15)
[2017-07-28] MEDS: Saccharomyces boulardii 250 MG CAP PO SCH (09:15)
--- NOTE | 2017-07-28 12:17 | DIS ---
DATE OF ADMISSION: DATE OF DISCHARGE: 07/28/2017 PRINCIPAL DIAGNOSIS: Status post fall and right humerus and right acetabular fracture, on conservati ve management. SECONDARY DIAGNOSES: 1. Diabetes mellitus type 2. 2. Paroxysmal atrial fibrillation. 3. Hypertension. 4. Chronic systolic congestive heart failure. 5. Coronary artery disease without angina. 6. Chronic kidney disease stage 3. 7. Peptic ulcer disease and anemia due to chronic blood loss, requiring blood transfusion. 8. History of deep venous thrombosis, was on Coumadin, but anticoagulation has been discontinued due to recurrent episodes of gastrointestinal bleeding requiring transfusion. 9. Glaucoma and legally blind. 10. Significant deconditioning. 11. Resolved urinary tract infection. 12. Benign prostatic hypertrophy. PAST SURGICAL HISTORY: 1. Cholecystectomy. 2. Appendectomy. 3. Surgery for glaucoma. 4. Open reduction internal fixation of his right hip. 5. Upper GI endoscopy. 6. Colonoscopy. COMPLICATIONS: None. ADVERSE REACTIONS: None. PROCEDURES: Blood transfusion. CONSULTATIONS: Physical therapy and occupational therapy. HOSPITAL COURSE: The patient was admitted on 07/07/2017 as a transfer from [facility] after a fall and resulting in right humerus and acetabular fracture. He was evaluated by Ortho pedics and recommended conservative management. He has been transferred here with weightbearing rest rictions and right arm in a shoulder sling. He has improved slowly and gradually. He did require bl ood transfusion when he first came here, but since then, he has managed his hemoglobin. He is off an y anticoagulation. He has also been off his Lasix and he has not had any issues with his CHF. His r enal functions have improved and his creatinine is now stabilized at about 1.4. He did require some IV fluids when he was not eating and drinking and he was also having some diarrhea. It was felt that the diarrhea was due to his magnesium oxide and his magnesium oxide was stopped, since then he has h ad no further diarrhea. Stool studies were negative for C. diff. He also was noticed to have episod es of confusion and that was felt to be most likely due to a combination of dehydration and possible UTI. He was treated with Macrobid initially and then was switched over to Levaquin and since then hi s mental status is better. He still has some sundowning and he has been started on Aricept 5 mg at [facility] and he is tolerating it well. He has been deemed stable for discharge and he is supposed to go to a nursing home facility in [place] and he apparently is going to be followed by Dr. Shasta hyde who is his new primary care physician. He will stay off his Lasix, but he needs to be monitored cl osely for any decompensation of his heart failure. PHYSICAL EXAMINATION: VITAL SIGNS: On the day of discharge, he is afebrile, heart rate is 69, respirations 19, oxygen satu ration is 96% on room air, blood pressure 106/53. CARDIOVASCULAR: S1, S2 plus. RESPIRATORY: Normal vesicular breath sounds. ABDOMEN: Soft, nontender, bowel sounds heard in all quadrants. EXTREMITIES: Without cyanosis or clubbing. Trace edema. Healing contusion to his right shoulder. LABORATORY VALUES: His sodium is 136, potassium 4.5, BUN and creatinine is 32 and 1.4, this is from this morning. Blood sugars are 147, 110, 111, 121, 127. He has also been off his glimepiride while he has been in the hospital. His CBC shows a white count of 6.8, H&H is 8.8 and 27.2. DISCHARGE MEDICATIONS: 1. Tylenol 1000 mg q.6 hours p.r.n. 2. Vitamin C 1000 mg b.i.d. 3. Ecotrin 81 mg b.i.d. 4. Carvedilol 25 mg b.i.d. 5. Aricept 5 mg daily. 6. Iron sulfate 325 mg b.i.d. 7. Finasteride 5 mg daily. 8. Folic acid 1 mg daily. 9. Latanoprost eyedrops 1 drop to each eye b.i.d. 10. Protonix 40 mg daily. 11. Terazosin 1 mg daily. 12. Timolol maleate eyedrops 1 drop to each eye b.i.d. DIET: 1800 calorie Heart healthy ADA diet. ACTIVITY: As tolerated with orthopedic restrictions. FOLLOWUP: Outpatient follow up with Orthopedic Surgery in 4-6 weeks. DISCHARGE INSTRUCTIONS: He probably will have to get another x-ray done on his right humerus and rig ht acetabulum in 4-6 weeks. Decubitus precautions, aspiration precautions, and nutritional support. He is on a soft/pureed diet. He needs assistance with feeding since he is legally blind. Routine l aboratory values. Total time spent on this discharge 40 minutes.
[2017-07-28 14:51] VITALS: BP 127/59; TEMP 98.1
== END 2017-07-28 17:19 | DRG 560 ==
LOC: NAV ACUTE 15:30 → UNDOADMIN 15:30 → NAV ACUTE 18:45 → UNDOADMIN 07-26 18:45 → NAV ACUTE 07-26 18:45 → UNDODISIN 07-26 18:45
PROVIDERS: ADMIT Internal Medicine; ATTEND Internal Medicine
DX: S32.401D Unspecified fracture of right acetabulum, subsequent encounter for fracture with routine healing (principal); I13.0 Hypertensive heart and chronic kidney disease with heart failure and stage 1 through stage 4 chronic kidney disease, or unspecified chronic kidney disease; E11.22 Type 2 diabetes mellitus with diabetic chronic kidney disease; F05 Delirium due to known physiological condition; I50.22 Chronic systolic (congestive) heart failure; N39.0 Urinary tract infection, site not specified; I48.0 Paroxysmal atrial fibrillation; N18.3 Chronic kidney disease, stage 3 (moderate); S42.291D Other displaced fracture of upper end of right humerus, subsequent encounter for fracture with routine healing; W01.0XXD Fall on same level from slipping, tripping and stumbling without subsequent striking against object, subsequent encounter; I25.10 Atherosclerotic heart disease of native coronary artery without angina pectoris; Z86.718 Personal history of other venous thrombosis and embolism; H40.9 Unspecified glaucoma; Z87.891 Personal history of nicotine dependence; H54.8 Legal blindness, as defined in USA; S36 Injury of intra-abdominal organs; E78.5 Hyperlipidemia, unspecified; D50.0 Iron deficiency anemia secondary to blood loss (chronic)
CPT/HCPCS: 36415; 36416; 36430; 80048; 80053; 85014; 85018; 85025; 86850; 86900; 86901; 87040; 87077; 87086; 87186; 87324; 87449; A4216; J1610; J1630; J1940; J7050; P9016; Q0162